=== PATIENT | female | born 1945 | race Caucasian/White ===

== ENCOUNTER 2019-04-22 14:11 | Outpatient (CLI) | payer MEDICARE, OTHER, SELFPAY ==
[2019-04-22 14:15] VITALS: BP 138/80; PULSE 74; RESP 16; TEMP 36.7; O2SAT 95
--- NOTE | 2019-04-22 14:31 | PC.NURSE ---
Education given on Prolia given along with brochure on Prolia. Discussed possible side effects and administration. Verbalized understanding.
[2019-04-22] MEDS: denosumab 60 mg SDV SUBCUT (14:39)
[2019-04-22 15:01] VITALS: BP 148/89; TEMP 36.7
== END 2019-04-22 14:12 | disposition home or self-care (01) ==
LOC: RHEOACUTE 14:14
PROVIDERS: Visit Provider Internal Medicine Rheumatology
DX: M81.0 Age-related osteoporosis without current pathological fracture (principal)
CPT/HCPCS: 96372; J0897

== ENCOUNTER → 2019-10-15 13:58 | Outpatient (BNVA) | payer MEDICARE, OTHER, SELFPAY | PROVIDERS: Visit Provider Internal Medicine | DX: Z79.899 Other long term (current) drug therapy (principal) | CPT/HCPCS: 36415; 82310; 82565 ==

== ENCOUNTER 2019-10-27 12:55 | Outpatient (CLI) | payer MEDICARE, OTHER, SELFPAY ==
[2019-10-27] MEDS: denosumab 60 mg SDV SUBCUT (13:05)
[2019-10-27 13:06] VITALS: BP 157/78; PULSE 63; RESP 16; TEMP 36.8; O2SAT 96
[2019-10-27 13:31] VITALS: BP 158/81; PULSE 59; RESP 16; TEMP 36.3; O2SAT 96
== END 2019-10-27 12:56 | disposition home or self-care (01) ==
LOC: RHEOACUTE 12:56
PROVIDERS: Visit Provider Internal Medicine Rheumatology
DX: M81.0 Age-related osteoporosis without current pathological fracture (principal)
CPT/HCPCS: 96372; J0897

== ENCOUNTER 2020-03-02 13:28 | Outpatient (CLI) | payer MEDICARE, OTHER, SELFPAY ==
--- NOTE | 2020-03-02 13:38 | MM_ITS ---
WS: [id number] BILATERAL SCREENING DIGITAL MAMMOGRAM WITH CAD HISTORY: SCREENING COMPARISON: 01/17/2018 Bilateral CC and MLO views submitted. Computer aided detection analyzed. Breast composition: There are scattered areas of fibroglandular density. No suspicious masses, microc alcifications or architectural distortion. Long-term stability of a nodule in the upper outer quadran t of the RIGHT breast which is probably a lymph node. Bilateral round calcifications and vascular blanca cifications. MM/[place] [id number] IMPRESSION: BI-RADS: 2-Benign FOLLOW UP: 1 Year Follow-up
== END 2020-03-02 13:29 | disposition home or self-care (01) ==
LOC: RADSHAW 13:37
PROVIDERS: PCP Family Medicine; Visit Provider Family Medicine
DX: Z12.31 Encounter for screening mammogram for malignant neoplasm of breast (principal)
CPT/HCPCS: 77067

== ENCOUNTER 2020-04-07 16:13 | Emergency (ER) | payer MEDICARE, OTHER, SELFPAY ==
[2020-04-07 16:17] VITALS: BP 171/85; PULSE 73; RESP 18; TEMP 36.4; O2SAT 95; BMI 25.0
--- NOTE | 2020-04-07 19:02 | W.ED.NAVMDI ---
HPI - Nausea/Vomiting/Diarrhea General: Chief complaint: Nausea/Vomiting/Diarrhea Stated complaint: upset stomach, loose stool Time Seen by Provider: 04/07/20 18:46 Source: patient Mode of arrival: ambulatory Limitations: no limitations History of Present Illness: HPI Narrative: 74-year-old female who states that since Sunday she has had nausea and vomiting along with some slight diarrhea. States she has had multiple episodes of vomiting is not able to keep anything down p.o. She states she has had abdominal cramping as well. She denies any worsening improving factors. Patient's has had the same symptoms along with her daughter. Associated nausea: Yes Associated symtoms: Reports nausea; Denies chest pain, dysuria or headache(s) Review of Systems Const: Denies: fever(s), chills, body aches or change in appetite Eyes: Denies: blurry vision or eye discomfort ENMT: Denies: throat pain or dental pain Card: Denies: chest pain Resp: Denies: dyspnea GI: Reports: abdominal pain, nausea, vomiting and diarrhea : Denies: dysuria Musc: Denies: neck pain or back pain Skin/Breast: Denies: rash Neuro: Denies: headache(s) Psych: Denies: depression Rashid/Lymph: Denies: easy bruising All/Imm: Denies: urticaria Physical Exam Const: COMMON NORMALS: no acute distress, patient oriented x3 and healthy appearing HENMT: COMMON NORMALS: normocephalic and atraumatic HEAD & SCALP: normocephalic and atraumatic Eye: COMMON NORMALS: Equal, round and reactive pupils present and EOMs intact bilaterally PUPIL: Yes Equal, round and reactive pupils present Neck/C-Spine: COMMON NORMALS: full ROM and supple Chest: COMMONS NORMALS: normal inspection of the chest and normal palpation of entire chest wall Resp: COMMON NORMALS: normal respiratory effort, No retractions, No use of accessory muscles and clear to auscultation bilaterally AUSCULTATION: clear to auscultation bilaterally Cardio: COMMON NORMALS: regular rate, regular rhythm and No murmurs present (Cardio) RATE: regular rate RHYTHM: regular rhythm GI: COMMON NORMALS: Normal to inspection, nondistended, normoactive bowel sounds present, Soft to palpation, non-tender and no masses PALPATION: Yes Soft to palpation Extremity: COMMON NORMALS: normal to inspection and full ROM Neuro: COMMON NORMALS: patient oriented x3, moves all extremities and no focal motor deficits Psych: COMMON NORMALS: mental status grossly normal, Normal thought process present and cooperative THOUGHT PROCESS: Normal thought process present Skin: COMMON NORMALS: no rashes or lesions noted and no wounds GENERAL SKIN EXAM: no rashes or lesions noted Course Vital Signs: Vital signs: Vital Signs Temperature 97.6 F 04/07/20 16:17 Pulse Rate 85 04/07/20 21:00 Respiratory Rate 16 04/07/20 21:00 Blood Pressure 175/85 04/07/20 21:00 Pulse Oximetry 97 04/07/20 21:00 MDM - Nausea/Vomiting/Diarrhea MDM Narrative: Medical decision making narrative: Gabrielle presents with vomiting is likely viral in origin. She is well-appearing here and her abdominal exam is benign. She feels much improved after IV fluids. She has had contact with people with similar symptoms. She has no signs of appendicitis. We will start her on Zofran and she is stable for discharge. She is return if worsening. Lab Data: Labs: Lab Results 04/07/20 04/07/20 04/07/20 Range/Units 19:10 19:10 19:10 WBC 4.3 (4.0-10.0) 10^3/ uL RBC 4.19 (4.1-5.3) 10^6/u L Hgb 13.6 (11.5-15.3) g/dL Hct 42.0 (37.0-47.0) % MCV 100.2 H (81-99) fL MCH 32.5 (28.0-34.0) pg MCHC 32.4 (30.0-36.0) g/dL RDW 12.3 (12.1-15.1) % Plt Count 191 (130-400) 10^3/c mm MPV 10.6 H (7.4-10.4) fL Neut % (Auto) 79.1 % Lymph % (Auto) 11.6 % [place] % (Auto) 8.6 % Eos % (Auto) 0.0 % Baso % (Auto) 0.2 % Neut # (Auto) 3.40 (1.8-7.7) 10^3/u L Lymph # (Auto) 0.5 L (0.8-4.8) 10^3/u L [place] # (Auto) 0.4 (0.2-0.9) 10^3/u L Eos # (Auto) 0.0 (0.0-0.8) 10^3/u L Baso # (Auto) 0.0 (0.0-0.1) 10^3/u L Nucleated RBC % (a uto) 0 % Nucleated RBCs # 0.0 /100WBC Sodium Cancelled Potassium Cancelled Chloride Cancelled Carbon Dioxide Cancelled Anion Gap Cancelled BUN Cancelled Creatinine Cancelled GFR Calculation Cancelled Glucose Cancelled Calculated Osmolal ity Cancelled Lactic Acid Cancelled Calcium Cancelled Total Bilirubin Cancelled AST Cancelled ALT Cancelled Alkaline Phosphata se Cancelled Total Protein Cancelled Albumin Cancelled Globulin Cancelled Lipase Cancelled Urine Color (Yellow) Urine Appearance (CLEAR) Urine pH (5-7) Ur Specific Gravit y (1.005-1.030) Urine Protein (Negative) Urine Glucose (UA) (Normal) Urine Ketones (Negative) Urine Blood (Negative) Urine Nitrate (Negative) Urine Bilirubin (Negative) Urine Urobilinogen (Negative) mg/dL Ur Leukocyte Tammy ase (Negative) Urine RBC (0-2) /hpf Urine WBC (0-5) /hpf Ur Squamous Epith Cells (0-5) /hpf Amorphous Sediment Urine Bacteria (NONE) /hpf Urine Mucus /hpf 04/07/20 04/07/20 04/07/20 Range/Units 19:58 19:58 20:44 WBC (4.0-10.0) 10^3/ uL RBC (4.1-5.3) 10^6/u L Hgb (11.5-15.3) g/dL Hct (37.0-47.0) % MCV (81-99) fL MCH (28.0-34.0) pg MCHC (30.0-36.0) g/dL RDW (12.1-15.1) % Plt Count (130-400) 10^3/c mm MPV (7.4-10.4) fL Neut % (Auto) % Lymph % (Auto) % [place] % (Auto) % Eos % (Auto) % Baso % (Auto) % Neut # (Auto) (1.8-7.7) 10^3/u L Lymph # (Auto) (0.8-4.8) 10^3/u L [place] # (Auto) (0.2-0.9) 10^3/u L Eos # (Auto) (0.0-0.8) 10^3/u L Baso # (Auto) (0.0-0.1) 10^3/u L Nucleated RBC % (a uto) % Nucleated RBCs # /100WBC Sodium 138 Potassium 3.8 Chloride 103 Carbon Dioxide 26 Anion Gap 12.8 BUN 13 Creatinine 0.7 GFR Calculation Not Reportable Glucose 105 Calculated Osmolal ity 286 Lactic Acid 1.3 Calcium 8.1 L Total Bilirubin 0.3 AST 22 ALT 13 Alkaline Phosphata se 54 Total Protein 6.7 Albumin 4.0 Globulin 2.7 Lipase 17 Urine Color Yellow (Yellow) Urine Appearance Clear (CLEAR) Urine pH 7 (5-7) Ur Specific Gravit y 1.010 (1.005-1.030) Urine Protein Trace (Negative) Urine Glucose (UA) Norm (Normal) Urine Ketones 1+ H (Negative) Urine Blood 3+ H (Negative) Urine Nitrate Negative (Negative) Urine Bilirubin Neg (Negative) Urine Urobilinogen 1 H (Negative) mg/dL Ur Leukocyte Tammy ase Negative (Negative) Urine RBC 15-25 H (0-2) /hpf Urine WBC None (0-5) /hpf Ur Squamous Epith Cells 0-4 H (0-5) /hpf Amorphous Sediment Not Reportable Urine Bacteria 2+ H (NONE) /hpf Urine Mucus Trace /hpf Discharge Plan Discharge Patient Disposition: Home Clinical Impression: Vomiting Qualifiers: Vomiting type: unspecified Vomiting Intractability: non-intractable Nausea presence: with nausea Qualified Code(s): R11.2 - Nausea with vomiting, unspecified Condition: Stable Prescriptions: New ondansetron 4 mg tablet,disintegrating 4 mg PO Q6H PRN (Reason: nausea and vomiting) Qty: 14 RF: 0 No Action aspirin 325 mg Tablet 325 - 650 mg PO Q4H PRN (Reason: Headache) RF: 0 gabapentin 400 mg capsule 400 mg PO Q6H RF: 0 midodrine 5 mg Tablet 5 mg PO TID PRN (Reason: LOW BLOOD PRESSURE) RF: 0 hydrocodone-acetaminophen 10-325 mg tablet 1 tab PO Q6H PRN (Reason: Pain) RF: 0 levothyroxine 125 mcg tablet 125 mcg PO DAILY@0800 RF: 0 rosuvastatin 10 mg tablet 10 mg PO DAILY@0900 RF: 0 duloxetine 60 mg capsule,delayed release(DR/EC) 60 mg PO DAILY@0900 RF: 0 Prolia 60 mg/mL Syringe See Rx Instructions .ROUTE .COMPLEX RF: 0 calcium 1 tab PO DAILY@0900 RF: 0 Discharge Orders: Discharge ED (Routine); Ordered 04/07/20 Ordered By: Rosa Davenport Referrals: Andrea Gaona MD [Primary Care Provider] - 1-3 days Discharge Diet: Advance as tolerated Discharge Activity: Resume usual activity Patient Instructions: Acute Nausea and Vomiting (ED) Coding Level of Care Code ED [employer] for Joel Fwd Exam Comprehensive
[2020-04-07] MEDS: sodium chloride 0.9% 1,000 ML 999 ML IV (19:21)
[2020-04-07] MEDS: ondansetron 2 mg/ML SDV 2 mL 4 MG IVP (19:21)
[2020-04-07 19:22] VITALS: BP 177/87; PULSE 69; RESP 17; O2SAT 98
[2020-04-07 19:25] LABS: Basophils % 0.2 %; Hemoglobin 13.6 g/dL (11.5-15.3); Lymphocytes # 0.5 10^3/uL (0.8-4.8); Lymphocytes % 11.6 %; Mean Corpuscular HGB Conc 32.4 g/dL (30.0-36.0); Mean Corpuscular Hemoglobin 32.5 pg (28.0-34.0); Mean Corpuscular Volume 100.2 fL (81-99); Mean Platelet Volume 10.6 fL (7.4-10.4); Monocytes # 0.4 10^3/uL (0.2-0.9); Monocytes % 8.6 %; Neutrophils % 79.1 %; Nucleated Red Blood Cells % 0 %; Platelet Count 191 10^3/cmm (130-400); Red Blood Count 4.19 10^6/uL (4.1-5.3); Red Cell Distribution Width 12.3 % (12.1-15.1); White Blood Count 4.3 10^3/uL (4.0-10.0)
[2020-04-07 20:25] LABS: Alanine Aminotransferase 13 U/L (0-33); Alkaline Phosphatase 54 IU/L (35-105); Anion Gap 12.8 (5-19); Aspartate Amino Transferase 22 U/L (0-32); Blood Urea Nitrogen 13 mg/dL (8-23); Calcium 8.1 mg/dL (8.5-10.5); Carbon Dioxide 26 mmol/L (22-29); Chloride 103 mmol/L (98-107); Globulin 2.7 g/dL (1.3-4.6); Glucose 105 mg/dL (65-115); Lipase 17 U/L (13-60); Osmolality Calculated 286 mOsm/kg (285-295); Potassium 3.8 mmol/L (3.5-5.1); Sodium 138 mmol/L (136-145); Total Bilirubin 0.3 mg/dL (0.15-1.2); Total Protein 6.7 g/dL (6.6-8.7)
[2020-04-07 20:26] LABS: Lactic Sepsis W/Reflex 1.3 mmol/L (0.5-2.2)
[2020-04-07 20:30] VITALS: BP 168/74; PULSE 85; RESP 16; O2SAT 97
[2020-04-07 21:00] VITALS: BP 175/85; PULSE 85; RESP 16; O2SAT 97
[2020-04-07 21:08] LABS: Add Urine Microscopic? YES; Bilirubin Urine Neg (Negative); Blood Urine 3+ (Negative); Glucose Urine UA Norm (Normal); Ketones Urine 1+ (Negative); Leukocyte Esterase Urine Negative (Negative); Nitrate Urine Negative (Negative); Protein Urine Trace (Negative); Urine Appearance Clear (CLEAR); Urine Color Yellow (Yellow); Urobilinogen Urine 1 mg/dL (Negative); pH Urine 7 (5-7)
[2020-04-07 21:16] LABS: RBC Urine 15-25 /hpf (0-2); Squamous Epithelial Cell Urine 0-4 /hpf (0-5)
[2020-04-07 21:17] LABS: Add Urine Culture? Yes; Bacteria Urine 2+ /hpf; Mucus Urine TRACE /hpf
[2020-04-07 21:25] VITALS: BP 175/85; PULSE 87; RESP 17; TEMP 36.4; O2SAT 97
== END 2020-04-07 21:25 | disposition home or self-care (01) ==
PROVIDERS: Physician Assistant; Emergency Provider Emergency Medicine; PCP Family Medicine
DX: R11.2 Nausea with vomiting, unspecified (principal); Z79.82 Long term (current) use of aspirin; Z79.899 Other long term (current) drug therapy
CPT/HCPCS: 80053; 81001; 83605; 83690; 85025; 87086; 87493; 87506; 96361; 96374; 99283; J2405; J7030

== ENCOUNTER 2020-04-16 13:58 | Outpatient (CLI) | payer MEDICARE, OTHER, SELFPAY ==
--- NOTE | 2020-04-16 | XR_ITS ---
WS: [id number] SCREENING DEXA SCAN [employer] CLINICAL INFORMATION: OSTEOPOROSIS COMPARISON: None. FINDINGS: The L1-L4 bone mineral density measures 1.247 g/cm2. This corresponds to a T score score of 0.6 and Z score of 1.9. Left femoral neck bone mineral density measures 0.767 g/cm2. This corresponds to a T score of -1.9 an d Z score of -0.4. Right femoral neck bone mineral density measures 0.768 g/cm2. This corresponds to a T score -1.9of an d Z score of -0.4. Mean femoral neck bone mineral density measures 0.767 g/cm2. This corresponds to a T score of -1.9 an d Z score of -0.4. XR/XR DEXA axial skeleton* [id number] IMPRESSION: Osteopenia in the femoral necks. Normal bone mineralization lumbar spine. Patient's FRAX calculated 10 year probability for major osteoporotic fracture i s 18.8 % and osteoporotic hip fracture is 4.0%.
== END 2020-04-16 13:59 | disposition home or self-care (01) ==
LOC: RADWPI 14:04
PROVIDERS: PCP Family Medicine; Visit Provider Nurse Practitioner
DX: M81.0 Age-related osteoporosis without current pathological fracture (principal); M85.862 Other specified disorders of bone density and structure, left lower leg; M85.861 Other specified disorders of bone density and structure, right lower leg
CPT/HCPCS: 77080

== ENCOUNTER 2020-04-29 14:37 | Outpatient (CLI) | payer MEDICARE, OTHER, SELFPAY ==
[2020-04-29] MEDS: denosumab 60 mg SDV SUBCUT (15:10)
== END 2020-04-29 14:38 | disposition home or self-care (01) ==
PROVIDERS: PCP Family Medicine; Visit Provider Internal Medicine Medical Oncology
DX: M81.0 Age-related osteoporosis without current pathological fracture (principal)
CPT/HCPCS: 96372; J0897

== ENCOUNTER 2020-06-15 11:05 | Outpatient (CLI) | payer MEDICARE, OTHER, SELFPAY ==
--- NOTE | 2020-06-15 11:13 | XRR_ITS ---
PROCEDURE INFORMATION: Exam: XR Left Foot Exam date and time: 06/15/2020 11:20 AM Age: 75 years old Clinical indication: Pain; Swelling, leg or foot; Left; Patient HX: Previous FX lt ankle 2014 or 2015; Additional info: Left foot pain, swelling lt lateral malleolus and heel x 1 week TECHNIQUE: Imaging protocol: XR Left foot. Views: 3 or more views. COMPARISON: No relevant prior studies available. FINDINGS: Bones/joints: No fracture. No dislocation. Soft tissues: Hindfoot soft tissue swelling, more so laterally. XR/XR foot LT min 3V* [id number] IMPRESSION: Nonspecific soft tissue swelling.
== END 2020-06-15 11:06 | disposition home or self-care (01) ==
LOC: RAD 11:10
PROVIDERS: PCP Family Medicine; Visit Provider Family Medicine
DX: M79.672 Pain in left foot (principal); M79.89 Other specified soft tissue disorders
CPT/HCPCS: 73630

== ENCOUNTER 2020-06-16 15:10 | Outpatient (CLI) | payer MEDICARE, OTHER, SELFPAY ==
--- NOTE | 2020-06-16 15:19 | USCV_ITS ---
Gabrielle Li Age: 75 Gender: F : 1945 Exam Date: 06/16/2020 15:48 Ordering Phys: Andrea Gaona MD Technologist: Exam Location: [facility] [place] Indication: LT LEG PAIN AND EDEMA HISTORY: Lower extremity edema. Lower extremity swelling. LT PROCEDURES: Venous duplex imaging was performed in only the left lower extremity. The following venous structures were evaluated: common femoral vein, profunda vein, proximal portion of the greater saphenous vein, superficial femoral vein, and the popliteal vein. In addition, the posterior tibial and peroneal trunk were evaluated. On the left side, the common femoral, superficial femoral, profunda femoral, popliteal, posterior tibial, greater saphenous veins, and the peroneal trunk were identified and interrogated in the standard fashion. These veins were found to be easily compressible with spontaneous blood flow. No evidence of insufficiency or thrombus noted. FINDINGS: Normal 2-D Doppler and augmentation and compressibility throughout the lower extremity venous structures. Additional imaging through the proximal calf veins also reveals no thrombus. Limited evaluation of the greater saphenous vein is patent with no thrombus.. CONCLUSIONS No evidence of left lower extremity DVT. Mohsen Zavala MD (Electronically Signed) Final Date: 16 Jun 2020 17:01 S
== END 2020-06-16 15:11 | disposition home or self-care (01) ==
LOC: RAD 15:16
PROVIDERS: PCP Family Medicine; Visit Provider Family Medicine
DX: M79.89 Other specified soft tissue disorders (principal); M79.605 Pain in left leg
CPT/HCPCS: 93971

== ENCOUNTER 2020-10-25 14:29 | Outpatient (CLI) | payer MEDICARE, OTHER, SELFPAY ==
[2020-10-25 16:02] LABS: Albumin Level 4.3 g/dL (3.5-5.2); Calcium 9.3 mg/dL (8.5-10.5)
== END 2020-10-25 14:30 | disposition home or self-care (01) ==
PROVIDERS: PCP Family Medicine; Referring Provider Nurse Practitioner; Visit Provider Nurse Practitioner
DX: M81.0 Age-related osteoporosis without current pathological fracture (principal)
CPT/HCPCS: 36415; 82040; 82310

== ENCOUNTER 2020-11-04 14:58 | Outpatient (CLI) | payer MEDICARE, OTHER, SELFPAY ==
[2020-11-04 15:14] VITALS: BP 165/72; PULSE 61; RESP 18; TEMP 36.2; O2SAT 95
[2020-11-04] MEDS: denosumab 60 mg SDV SUBCUT (15:26)
[2020-11-04 15:42] VITALS: BP 162/76; PULSE 62; RESP 18; TEMP 36.4; O2SAT 94
== END 2020-11-04 14:59 | disposition home or self-care (01) ==
LOC: ONCMED 15:03
PROVIDERS: PCP Family Medicine; Referring Provider Nurse Practitioner; Visit Provider Nurse Practitioner
DX: M81.0 Age-related osteoporosis without current pathological fracture (principal)
CPT/HCPCS: 96372; J0897

== ENCOUNTER 2021-02-23 13:21 | Outpatient (CLI) | payer MEDICARE, OTHER, SELFPAY ==
--- NOTE | 2021-02-23 | CT_ITS ---
WS: [id number] CT ABDOMEN AND PELVIS WITH CONTRAST HISTORY: ABDOMINAL PAIN, constipation. TECHNIQUE: Imaging performed of the abdomen and pelvis with IV contrast. Single phase imaging of the abdomen. Coronal and sagittal reformats are submitted. All CT scans at [facility] use at [address] one of these dose optimization techniques: automated exposure control; mA and/or kV adjustment per patient size (includes targeted exams where dose is matched to clinical indication); or iterative re construction. IV CONTRAST: Visipaque 320; 95 mL IV. Oral contrast: Yes. DLP: 1017.03 mGycm COMPARISON: None available. Lower thorax: Lung bases are clear. Moderately enlarged heart. No pericardial effusion. Small hiatal hernia. Liver/biliary system: Normal size with no intrahepatic dilatation. Gallbladder: Normal. No gallstones or wall thickening. No pericholecystic fluid. Pancreas: Normal size pancreas and pancreatic duct. No adjacent inflammation. Spleen: Normal size spleen. No mass or infarct. Adrenal glands: Normal. Right kidney: Normal. Left kidney: Normal. Aorta: Moderate atherosclerotic plaque throughout the aorta. No aneurysm. There is plaque at the orig ins of the celiac axis and SMA. Lymphadenopathy: None. Free fluid: None. GI tract: No GI tract obstruction. There is mild diffuse fecal retention and constipation. No change in caliber or focal area of obstruction. The appendix is not definitely identified but there are no c hanges of appendicitis. No small bowel dilatation. Abdominal wall: Unremarkable abdominal wall. No hernia. Pelvis: Well-distended urinary bladder. Uterus is atrophic. No adnexal masses. Bones: Degenerative thoracolumbar scoliosis. No fractures. Remote healed fracture involving the RIGHT inferior pubic rami. CT/CT abdomen pelvis w con* [id number] IMPRESSION: 1. Mild diffuse constipation. No focal transition zone identified. 2. No ascites or adenopathy. 3. Moderate atherosclerosis aorta with atherosclerotic plaque causing mild to moderate stenosis involving the celiac axis and SMA origins.
[2021-02-23] MEDS: iodixanol 320 mg/mL 100mL Btl IV (14:47)
[2021-02-23] MEDS: iohexol 300 mg/mL 50 mL Btl PO (14:47)
== END 2021-02-23 13:22 | disposition home or self-care (01) ==
PROVIDERS: PCP Family Medicine; Visit Provider Family Medicine
DX: R10.9 Unspecified abdominal pain (principal); K59.00 Constipation, unspecified; I70.0 Atherosclerosis of aorta
CPT/HCPCS: 74177; Q9967

== ENCOUNTER 2021-05-19 12:02 | Outpatient (CLI) | payer MEDICARE, OTHER, SELFPAY ==
[2021-05-19 13:08] LABS: Albumin Level 4.1 g/dL (3.5-5.2); Calcium 9.7 mg/dL (8.5-10.5)
[2021-05-19 13:31] VITALS: BP 176/81; PULSE 61; RESP 18; TEMP 36.3; O2SAT 95
[2021-05-19] MEDS: denosumab 60 mg SDV SUBCUT (13:44)
[2021-05-19 13:50] VITALS: BP 165/84; PULSE 60; RESP 18; TEMP 36.4; O2SAT 97
== END 2021-05-19 12:03 | disposition home or self-care (01) ==
LOC: ONCMED 12:08
PROVIDERS: PCP Family Medicine; Visit Provider Nurse Practitioner
DX: M81.0 Age-related osteoporosis without current pathological fracture (principal)
CPT/HCPCS: 36415; 82040; 82310; 96372; J0897

== ENCOUNTER 2021-05-26 13:24 | Outpatient (CLI) | payer MEDICARE, OTHER, SELFPAY ==
--- NOTE | 2021-05-26 13:38 | MM_ITS ---
WS: [id number] BILATERAL 3D TOMOSYNTHESIS DIGITAL SCREENING MAMMOGRAPHY WITH CAD CLINICAL INFORMATION: SCREENING HISTORY: Screening mammogram. No current complaints. COMPARISON: March 02, 2020 TECHNIQUE: Bilateral CC and MLO views. FINDINGS: Scattered fibroglandular densities bilaterally. Punctate and lucent centered calcifications. Vascular calcification. Stable intramammary lymph node along the RIGHT axillary tail. No suspicious focal mas s, asymmetry, calcifications, or architectural distortion. No evidence of malignancy. MM/[place] [id number] IMPRESSION: BI-RADS: 2-Benign FOLLOW UP: 1 Year Follow-up Recommend return to annual screening mammography.
== END 2021-05-26 13:25 | disposition home or self-care (01) ==
LOC: RADSHAW 13:28
PROVIDERS: PCP Family Medicine; Visit Provider Family Medicine
DX: Z12.31 Encounter for screening mammogram for malignant neoplasm of breast (principal)
CPT/HCPCS: 77063; 77067

== ENCOUNTER 2021-09-20 13:30 | Outpatient (CLI) | payer MEDICARE, OTHER, SELFPAY | END 2021-09-20 13:31 | disposition home or self-care (01) | LOC: LAB 13:33 | PROVIDERS: PCP Family Medicine; Visit Provider Dietitian, Registered | DX: R10.11 Right upper quadrant pain (principal); R11.0 Nausea | CPT/HCPCS: 87338 ==

== ENCOUNTER → 2021-10-03 17:30 | Outpatient (BNVA) | payer MEDICARE, OTHER, SELFPAY | PROVIDERS: PCP Family Medicine; Visit Provider Family Medicine | DX: J06.9 Acute upper respiratory infection, unspecified (principal); J18.9 Pneumonia, unspecified organism | CPT/HCPCS: 87426 ==

== ENCOUNTER 2021-10-04 11:10 | Outpatient (CLI) | payer MEDICARE, OTHER, SELFPAY ==
--- NOTE | 2021-10-04 11:20 | XRR_ITS ---
PROCEDURE INFORMATION: Exam: XR Chest Exam date and time: 10/04/2021 11:20 AM Age: 76 years old Clinical indication: Bronchospasm and shortness of breath; Patient HX: SOB chest pain coughing x 3 weeks; Additional info: Pneumonia TECHNIQUE: Imaging protocol: Radiologic exam of the chest. Views: 2 views. Total images: 2 COMPARISON: CT abdomen pelvis w con* [id number] 02/23/2021 2:34 PM FINDINGS: Lungs: Pulmonary hyperinflation, suggesting COPD. Pleural spaces: Unremarkable. No pleural effusion. No pneumothorax. Heart/Mediastinum: Unremarkable. No cardiomegaly. Vasculature: Atherosclerosis is evident. Bones/joints: Osseous structures are unchanged from the prior exam. XR/XR chest 2V* [id number] IMPRESSION: Pulmonary hyperinflation, suggesting COPD.
== END 2021-10-04 11:11 | disposition home or self-care (01) ==
LOC: RAD 11:12
PROVIDERS: PCP Family Medicine; Visit Provider Family Medicine
DX: J18.9 Pneumonia, unspecified organism (principal); R06.02 Shortness of breath; R07.9 Chest pain, unspecified
CPT/HCPCS: 71046

== ENCOUNTER 2021-10-12 09:42 | Outpatient (CLI) | payer MEDICARE, OTHER, SELFPAY ==
--- NOTE | 2021-10-12 10:11 | NM_ITS ---
WS: [id number] NUCLEAR MEDICINE HIDA SCAN CLINICAL INFORMATION: RIGHT UPPER QUADRANT PAIN, NAUSEA TECHNIQUE: Following intravenous administration of 7.6 mCi of technetium 99m mebrofenin, images of th e abdomen were obtained over the course of 60 minutes. Next, gallbladder ejection fraction was determ ined by obtaining preprandial and one-hour postprandial images of the gallbladder following oral antonieta stion of Ensure. COMPARISON: None. FINDINGS: Normal hepatic uptake at 5 minutes. Normal hepatic excretion. Gallbladder is visualized by 20 minutes . No evidence of acute cholecystitis. Normal common bile duct and small bowel activity. Gallbladder ejection fraction 82% within normal limits. No evidence of chronic cholecystitis. NM/NM hepatobiliary w phar* [id number] IMPRESSION: 1. No evidence of acute or chronic cholecystitis. 2. Gallbladder ejection fraction 82% within normal limits.
== END 2021-10-12 09:43 | disposition home or self-care (01) ==
LOC: RAD 09:44
PROVIDERS: PCP Family Medicine; Visit Provider Dietitian, Registered
DX: R10.11 Right upper quadrant pain (principal); R11.0 Nausea
CPT/HCPCS: 78227; A9537

== ENCOUNTER 2021-11-18 13:10 | Outpatient (CLI) | payer MEDICARE, OTHER, SELFPAY ==
--- NOTE | 2021-11-18 13:29 | XR_ITS ---
WS: [id number] XR abdomen 1V* [id number] REASON FOR EXAM: NAUSEA, ABDOMINAL PAIN FINDINGS: Unremarkable bowel gas pattern. No free air or retroperitoneal air. No urinary tract calculi or other significant abdominal or pelvic calcifications. No mass is identified. Moderately severe lumbar spine rotatory scoliosis convex right. XR/XR abdomen 1V* [id number] IMPRESSION: No acute abnormality.
== END 2021-11-18 13:11 | disposition home or self-care (01) ==
LOC: RAD 13:14
PROVIDERS: PCP Family Medicine; Visit Provider Dietitian, Registered
DX: R11.0 Nausea (principal); R10.9 Unspecified abdominal pain
CPT/HCPCS: 74018

== ENCOUNTER 2021-11-22 09:43 | Outpatient (CLI) | payer MEDICARE, OTHER, SELFPAY ==
[2021-11-22 10:41] LABS: Calcium 9.9 mg/dL (8.5-10.5)
[2021-11-22 10:48] VITALS: BP 162/85; PULSE 67; RESP 18; TEMP 36.2; O2SAT 95
[2021-11-22] MEDS: denosumab 60 mg SDV SUBCUT (10:51)
[2021-11-22 10:57] VITALS: BP 155/85; PULSE 69; RESP 18; TEMP 36.3; O2SAT 94
== END 2021-11-22 09:44 | disposition home or self-care (01) ==
PROVIDERS: PCP Family Medicine; Visit Provider Nurse Practitioner
DX: M81.0 Age-related osteoporosis without current pathological fracture (principal)
CPT/HCPCS: 36415; 82040; 82310; 96372; J0897

== ENCOUNTER → 2021-12-13 14:50 | Outpatient (BNVA) | payer MEDICARE, OTHER, SELFPAY | PROVIDERS: PCP Family Medicine; Visit Provider Clinical Nurse Specialist Adult Health | DX: R10.9 Unspecified abdominal pain (principal) | CPT/HCPCS: 80053; 82150; 83690; 85025 ==

== ENCOUNTER → 2021-12-15 10:14 | Outpatient (BNVA) | payer MEDICARE, OTHER, SELFPAY | PROVIDERS: PCP Family Medicine; Visit Provider Family Medicine | DX: D75.89 Other specified diseases of blood and blood-forming organs (principal); R10.9 Unspecified abdominal pain | CPT/HCPCS: 82607; 82746 ==

== ENCOUNTER 2021-12-28 12:55 | Outpatient (CLI) | payer MEDICARE, OTHER, SELFPAY ==
--- NOTE | 2021-12-28 13:06 | XR_ITS ---
WS: [id number] Exam: XR scoliosis survey 4-5V [id number] Date/Time of Exam: 12/28/2021 1:09 PM Reason For Exam: Low back pain AP and lateral views of the thoracic and lumbar spine are submitted for scoliosis evaluation. There is dextroscoliosis of the lumbar spine measuring 10 degrees. There is also levoscoliosis of the mid and lower thoracic spine and upper lumbar spine measuring 25 degrees. There are no fractures or significant bony anomalies noted. The thoracic kyphosis is well-maintained. There is straightening of the lumbar lordosis. There are moderate degenerative disc changes of the lumbar spine and spondylosi s. Facet arthropathy of the lumbar spine. XR/XR scoliosis survey 4-5V [id number] IMPRESSION: 1. Dextroscoliosis of the lumbar spine measuring 10 degrees. 2. Levoscoliosis of the mid and lower thoracic spine and upper lumbar spine anahy suring 25 degrees. 3. Moderately advanced degenerative changes of the lumbar spine as detailed abo ve. Straightening of the lumbar lordosis.
--- NOTE | 2021-12-28 15:00 | CT_ITS ---
WS: [id number] CT ABDOMEN AND PELVIS NONCONTRAST HISTORY: abdominal pain RUQ and LUQ TECHNIQUE: Imaging performed through the abdomen and pelvis. Coronal and sagittal reformats are submi tted. All CT scans at [facility] use at least one of these dose optimization techniques: auto mated exposure control; mA and/or kV adjustment per patient size (includes targeted exams where dose is matched to clinical indication); or iterative reconstruction. DLP: 982.41 mGy.cm COMPARISON: 02/23/2021 Lower thorax: Spiculated 7 mm nodule at the LEFT lung base. New since the prior examinations. Chronic emphysema. Heart size is normal. Small hiatal hernia. Liver: Normal size liver. No mass or bile duct dilatation. Gallbladder: Normal gallbladder. Pancreas: Normal size and attenuation. Normal pancreatic duct. No pancreatitis or mass. Spleen: Normal. Adrenal glands: Normal. No mass. Right kidney: Normal size kidney with no mass or hydronephrosis. Left kidney: Normal size kidney with no mass or hydronephrosis. Aorta: Moderate to severe atherosclerosis abdominal aorta. No aneurysm. Atherosclerosis continues int o the common iliac arteries. Atherosclerotic plaque continues into the mesenteric arteries. No free fluid, intraperitoneal air or significant lymphadenopathy. GI tract: Stomach is not distended. No small bowel obstruction. Tortuous overlapping loops of colon w ith constipation. Cecum is very low lying adjacent to the bladder. The appendix is not definitely davin ntified. No acute inflammatory changes. Abdominal wall: Negative. No hernia. Pelvis: Atrophic uterus. No free fluid or adenopathy. Osseous structures: Degenerative scoliosis lumbar spine. CT/CT abdomen pelvis wo con [id number] IMPRESSION: 1. Marked constipation with overlapping loops of GI tract. Probably due to elvis g-standing constipation. 2. Moderate atherosclerosis aorta and mesenteric arteries. 3. No free fluid or ascites. 4. If patient's pain and discomfort continues additional evaluation with IV an d oral contrast may be helpful. 5. New spiculated 7 mm nodule at the LEFT lung base. Recommend follow-up chest CT in 3 months.
== END 2021-12-28 12:56 | disposition home or self-care (01) ==
LOC: RAD 12:55
PROVIDERS: PCP Family Medicine; Visit Provider Clinical Nurse Specialist Adult Health
DX: R10.11 Right upper quadrant pain (principal); R10.12 Left upper quadrant pain; M54.16 Radiculopathy, lumbar region; K59.00 Constipation, unspecified; I70.0 Atherosclerosis of aorta; R91.1 Solitary pulmonary nodule; M41.86 Other forms of scoliosis, lumbar region; M41.84 Other forms of scoliosis, thoracic region
CPT/HCPCS: 72083; 74176

== ENCOUNTER 2022-03-30 14:26 | Outpatient (CLI) | payer MEDICARE, OTHER, SELFPAY ==
--- NOTE | 2022-03-30 14:44 | CT_ITS ---
WS: [id number] CT CHEST TECHNIQUE: Noncontrast CT of the chest with coronal and sagittal reformatted images. CLINICAL INFORMATION: lung nodule COMPARISON: CT abdomen pelvis December 28, 2021 DLP: 273.[address] scans at [facility] use at least one of these dose optimization techniques: automated e xposure control; mA and/or kV adjustment per patient size (includes targeted exams where dose is matc hed to clinical indication); or iterative reconstruction. FINDINGS: Again seen is the 7 mm spiculated nodule LEFT lower lobe anteriorly. This is unchanged sinc e December 28, 2021. Recommend [address] follow-up. 5 mm noncalcified nodule RIGHT middle lobe. A few additional tiny scattered subcentimeter pulmonary n odules. Slight subsegmental atelectasis in the lingula. Normal caliber thoracic aorta. Aortic calcification. No mediastinal or hilar lymphadenopathy. Adrenal glands are normal. Tiny esophageal hiatal hernia. Splenic artery calcification. Thoracic curve conve x LEFT. CT/CT chest [facility] [id number] IMPRESSION: 1. Stable 7 mm slightly spiculated nodule LEFT lower lobe anteriorly. Recommen d [address] follow-up. 2. 5 mm small nodule RIGHT middle lobe. A few additional tiny scattered nodule s. 3. No mediastinal or hilar lymphadenopathy. 4. No other acute findings.
== END 2022-03-30 14:27 | disposition home or self-care (01) ==
LOC: RAD 14:29
PROVIDERS: PCP Family Medicine; Visit Provider Family Medicine
DX: R91.1 Solitary pulmonary nodule (principal)
CPT/HCPCS: 71250

== ENCOUNTER 2022-04-28 12:37 | Outpatient (CLI) | payer MEDICARE, OTHER, SELFPAY ==
[2022-05-05 23:55] LABS: Calcitonin <2 pg/mL (< OR = 5)
[2022-05-08 16:45] LABS: 24 Hour Urine Volume 2200 mL; 5-HIAA, 24 Hour Urine 2.1 mg/24 h (< OR = 6.0)
== END 2022-04-28 12:38 | disposition home or self-care (01) ==
LOC: LAB 12:55
PROVIDERS: PCP Family Medicine; Visit Provider Dietitian, Registered
DX: E16.4 Increased secretion of gastrin (principal); K29.40 Chronic atrophic gastritis without bleeding
CPT/HCPCS: 36415; 82308; 83497

== ENCOUNTER 2022-05-24 09:43 | Oncology outpatient (recurring) (ONCR) | payer MEDICARE, OTHER, SELFPAY ==
[2022-05-24] MEDS: denosumab 60 mg SDV SUBCUT (10:54)
[2022-05-24 10:56] VITALS: BP 171/84; PULSE 58; RESP 16; TEMP 36.9; O2SAT 95
[2022-05-24 11:13] LABS: Albumin Level 4.1 g/dL (3.5-5.2); Calcium 9.8 mg/dL (8.5-10.5)
--- NOTE | 2022-05-24 16:29 | PC.NURSE ---
Called patient to let her know what her lab results were. This nurse let her know that her Calcium was 9.8 and Alb was 4.1. Patient acknowledged understanding and had no other questions or concerns.
== END 2022-06-11 23:59 | disposition home or self-care (01) ==
LOC: ONCMED 09:45
PROVIDERS: PCP Family Medicine; Visit Provider Nurse Practitioner
DX: M81.0 Age-related osteoporosis without current pathological fracture (principal)
CPT/HCPCS: 36415; 82040; 82310; 96372; J0897

== ENCOUNTER 2022-06-02 14:47 | Outpatient (CLI) | payer MEDICARE, OTHER, SELFPAY ==
--- NOTE | 2022-06-02 15:12 | XR_ITS ---
WS: [id number] DEXA (DUAL ENERGY X-RAY ABSORPTIOMETRY) Bone mineral density was performed using a Think2 machine. HISTORY: AGE RELATED OSTEOPOROSIS COMPARISON: 04/16/2020 Lumbar spine BMD (L2-L4): 1.375 T score: 1.5 Z score: 2.9 Total hip BMD: Left: 0.787 g/cm2. T score: -1.7 Z score: -0.1 Right: 0.794 g/cm2. T score: -1.7 Z score: -0.1 10 year probability of a major osteoporotic fracture is 20.2%. Compared to the prior study from 04/16/2020. Lumbar spine bone mineral density has increased by 7.3%. Bilateral hips bone mineral density has increased by 2.1%. XR/XR DEXA axial skeleton* [id number] IMPRESSION: OSTEOPENIA based upon the WHO classification for females. Significant increase in bone mineral density within the lumbar spine and hips since the prior study.
--- NOTE | 2022-06-02 15:17 | MM_ITS ---
WS: [id number] BILATERAL 3D TOMOSYNTHESIS DIGITAL SCREENING MAMMOGRAPHY WITH CAD CLINICAL INFORMATION: SCREEN HISTORY: Screening mammogram. No current complaints. COMPARISON: May 26, 2021 TECHNIQUE: Bilateral CC and MLO views. FINDINGS: Scattered fibroglandular densities bilaterally. No suspicious focal mass, asymmetry, calcifications, or architectural distortion. No evidence of malignancy. Vascular calcification. Punctate and lucent c entered calcifications. MM/[place] [id number] IMPRESSION: BI-RADS: 2-Benign FOLLOW UP: 1 Year Follow-up Recommend return to annual screening mammography.
== END 2022-06-02 14:48 | disposition home or self-care (01) ==
LOC: RAD 14:53
PROVIDERS: PCP Family Medicine; Visit Provider Nurse Practitioner
DX: Z12.31 Encounter for screening mammogram for malignant neoplasm of breast (principal); M81.0 Age-related osteoporosis without current pathological fracture
CPT/HCPCS: 77063; 77067; 77080

== ENCOUNTER 2022-06-09 12:49 | Outpatient (CLI) | payer MEDICARE, OTHER, SELFPAY ==
--- NOTE | 2022-06-09 13:00 | CT_ITS ---
WS: [id number] CT HEAD NONCONTRAST HISTORY: TIA TECHNIQUE: Contiguous axial imaging performed through the brain in 2.5 mm imaging. Bone and soft tiss ue windows. Sagittal and coronal reformats reviewed. All CT scans at [facility] use at least one of these dose optimization techniques: automated exposure control; mA and/or kV adjustment per pa tient size (includes targeted exams where dose is matched to clinical indication); or iterative recon struction. DLP: 1038.58 mGy.cm COMPARISON: None available. No acute intracranial hemorrhage, midline shift or mass effect. Mild atrophy with vessel ischemic changes. Small lacunar infarcts in the anterior limbs of the international nurse al capsules. Small lacunar infarcts in the basal ganglia. Ventricles: Normal size with no hydrocephalus. No inferior displacement of the cerebellar tonsils. Paranasal sinuses: As visualized are clear. Mastoid air cells: Well pneumatized. Calvarium and scalp: Skull is intact with no soft tissue edema or swelling. CT/CT head wo con* [id number] IMPRESSION: 1. No acute intracranial hemorrhage or edema. 2. Mild cerebral and cerebellar atrophy with multiple small lacunar infarcts. No acute infarct identified.
== END 2022-06-09 12:50 | disposition home or self-care (01) ==
LOC: RAD 12:54
PROVIDERS: PCP Family Medicine; Visit Provider Family Medicine
DX: G45.9 Transient cerebral ischemic attack, unspecified (principal); G31.9 Degenerative disease of nervous system, unspecified
CPT/HCPCS: 70450

== ENCOUNTER 2022-06-27 12:42 | Outpatient (CLI) | payer MEDICARE, OTHER, SELFPAY ==
--- NOTE | 2022-06-27 12:45 | USCV_ITS ---
Gabrielle Li Age: 77 Gender: F : 1945 Exam Date: 06/27/2022 13:52 Ordering Phys: Andrea Gaona MD Technologist: Dl Moser Exam Location: [facility] – [place] Indication: TIA BP: 120 / 74 HR: 63 Rhythm: Sinus Technical Quality: Adequate MEASUREMENTS (Male / Female) Normal Values 2D ECHO LVOT Diameter 2.0 cm LV Ejection Fraction MOD 2C 65.2 % LV Ejection Fraction 2C AL 65.0 % LA Diameter 3.5 cm LA Width 3.8 cm LA Height 4.0 cm RA Width 3.0 cm RA Height 5.3 cm Aorta at Sinotubular Diameter 2.4 cm IVC Diameter 1.6 cm M-MODE Aortic Annulus Diameter 2.6 cm LA Ao Ratio MM 1.2 MV E Point Septal Separation 0.1 cm DOPPLER AV Peak Velocity 99.7 cm/s LVOT Peak Velocity 94.0 cm/s AV Area Cont Eq vti 2.9 cm squared AV Area Cont Eq pk 3.0 cm squared MV Peak Velocity 80.0 cm/s MV Area PHT 3.1 cm squared Mitral E to A Ratio 0.8 MV E' Velocity 25.5 cm/s Mitral E to MV E' Ratio 8.4 Mitral E to LV E' Lateral Ratio 7.7 Mitral E to LV E' Septal Ratio 9.2 TR Peak Velocity 422.5 cm/s TR Peak Gradient 71.4 mmHg TR Mean Velocity 300.1 cm/s TR Mean Gradient 40.9 mmHg TR Velocity Time Integral 106.3 cm Right Atrial Pressure 3.0 mmHg Pulmonary Artery Systolic Pressu 74.4 mmHg PV Peak Velocity 69.7 cm/s RV Acceleration Time 0.1 s RV Ejection Time 0.3 s RV AcT/ET 0.4 FINDINGS Left Ventricle Left ventricle is normal in size. LV systolic function is normal with EF of 60 to 65%. No regional wall motion normalities are seen. Grade 1 diastolic dysfunction Right Ventricle Normal in size and function Right Atrium Normal in size Left Atrium Normal in size Mitral Valve Structurally normal mitral valve. Mild mitral regurgitation. Aortic Valve Structurally normal aortic valve. No significant stenosis. Mild aortic regurgitation. Tricuspid Valve Mild tricuspid regurgitation. Insufficient TR jet to calculate RVSP Pulmonic Valve Not well visualized. Mild pulmonic regurgitation. Pericardium Normal Aorta Normal in size IVC Appears to be normal CONCLUSIONS LV systolic function is normal with EF of 60 to 65%. Grade 1 diastolic dysfunction. Mild mitral regurgitation. Mild aortic regurgitation. Mild tricuspid regurgitation. Mild pulmonic regurgitation. No comparison studies are available. Shakeel Dumont MD (Electronically Signed) Final Date: 04 Jul 2022 10:17 S
--- NOTE | 2022-06-27 13:30 | USCV_ITS ---
GuillermoSandy broweryn Age: 77 Gender: F : 1945 Exam Date: 06/27/2022 13:28 Ordering Phys: Andrea Gaona MD Technologist: Dl Moser Exam Location: [facility] – [place] Indication: TIA Risk Factors: Previous Vascular Surgery: Right Brachial BP: / Left Brachial BP: / Right Left Velocity (cm/s) Spectral Plaque Velocity (cm/s) Spectral Plaque Syst/Diast Broadening Syst/Diast Broadening 45.40/ 8.50 Prox CCA 48.50 / 14.00 50.20/ 13.40 Mid CCA 54.60 / 20.40 48.60/ 13.90 Distal CCA 70.30 / 22.30 51.30/ 15.00 Prox ICA 56.50 / 17.10 97.10/ 22.50 Mid ICA 101.70/ 32.50 91.70/ 21.00 Distal ICA 92.90 / 28.40 75.30 ECA 69.70 1.93 ICA/CCA 1.86 Antegrade Vertebral Antegrade 66.80/ 20.20 cm/s 86.30/ 21.40 cm/s Bi Subclavian Tri 50.80 62.00 FINDINGS Comparison: none available. No significant elevation of systolic or diastolic velocities. Waveforms are normal. Mild carotid atherosclerosis. Antegrade vertebral arteries. CONCLUSIONS Bilateral ICA stenosis less than 50%. Dr. Gege Naik DO (Electronically Signed) Final Date: 27 Jun 2022 14:53 S
== END 2022-06-27 12:43 | disposition home or self-care (01) ==
PROVIDERS: PCP Family Medicine; Visit Provider Family Medicine
DX: G45.9 Transient cerebral ischemic attack, unspecified (principal)
CPT/HCPCS: 93306; 93880

== ENCOUNTER 2022-08-21 16:47 | Outpatient (CLI) | payer MEDICARE, OTHER, SELFPAY ==
[2022-08-21 17:39] LABS: Basophils % 0.2 %; Hematocrit 38.6 % (37.0-47.0); Hemoglobin 12.5 g/dL (11.5-15.3); Lymphocytes # 0.7 10^3/uL (0.8-4.8); Lymphocytes % 4.3 %; Mean Corpuscular HGB Conc 32.4 g/dL (30.0-36.0); Mean Corpuscular Hemoglobin 32.1 pg (28.0-34.0); Mean Platelet Volume 10.8 fL (7.4-10.4); Monocytes # 1.2 10^3/uL (0.2-0.9); Neutrophils # 14.81 10^3/uL (1.8-7.7); Neutrophils % 85.7 %; Nucleated Red Blood Cells % 0 %; Platelet Count 233 10^3/cmm (130-400); Red Cell Distribution Width 13.3 % (12.1-15.1); White Blood Count 17.3 10^3/uL (4.0-10.0)
[2022-08-21 17:58] LABS: Alanine Aminotransferase 8 U/L (0-33); Albumin Level 4.1 g/dL (3.5-5.2); Alkaline Phosphatase 64 U/L (35-105); Anion Gap 14.1 (5-19); Aspartate Amino Transferase 14 U/L (0-32); Blood Urea Nitrogen 12 mg/dL (8-23); Calcium 9.3 mg/dL (8.5-10.5); Carbon Dioxide 26 mmol/L (22-29); Chloride 94 mmol/L (98-107); Globulin 2.9 g/dL (1.3-4.6); Glucose 118 mg/dL (65-115); Osmolality Calculated 271 mOsm/kg (285-295); Potassium 4.1 mmol/L (3.5-5.1); Sodium 130 mmol/L (136-145); Total Bilirubin 0.7 mg/dL (0.15-1.2)
== END 2022-08-21 16:48 | disposition home or self-care (01) ==
PROVIDERS: PCP Family Medicine; Visit Provider Family Medicine
DX: R10.9 Unspecified abdominal pain (principal); Z51.81 Encounter for therapeutic drug level monitoring; R19.7 Diarrhea, unspecified
CPT/HCPCS: 36415; 74022; 80053; 83630; 85025; 86141; 87506

== ENCOUNTER 2022-08-22 08:09 | Inpatient (IN) | payer MEDICARE, OTHER, SELFPAY ==
[2022-08-22] VITALS (8 sets, daily range): BP systolic 140–186; BP diastolic 59–86; PULSE 64–75; RESP 16–18; TEMP 36.1–36.6; O2SAT 94–98; BMI 25.8
--- NOTE | 2022-08-22 09:17 | ECG_ITS ---
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 Measurements Intervals [place] Rate: 66 P: 66 AR: 175 QRS: 17 QRSD: 90 T: 71 QT: 389 QTc: 409 Interpretive Statements SINUS RHYTHM NONSPECIFIC T-WAVE ABNORMALITY No previous ECG available for comparison Electronically Signed On 08-22-2022 9:54:01 CDT by Aracelis Orr M.D. [id number]
--- NOTE | 2022-08-22 09:17 | CTR_ITS ---
PROCEDURE INFORMATION: Exam: CT Abdomen And Pelvis With Contrast Exam date and time: 08/22/2022 11:00 AM Age: 77 years old Clinical indication: Abdominal pain; Localized; Lower; Additional info: Abd pain TECHNIQUE: Imaging protocol: Computed tomography of the abdomen and pelvis with contrast. Radiation optimization: All CT scans at this facility use at least one of these dose optimization techniques: automated exposure control; mA and/or kV adjustment per patient size (includes targeted exams where dose is matched to clinical indication); or iterative reconstruction. Contrast material: OMNI 350; Contrast volume: 100 ml; Contrast route: INTRAVENOUS (IV); REPORTING DATA: Count of CT and Cardiac NM exams in prior 12 months: This patient has received 3 known CTs and 0 known cardiac nuclear medicine studies in the 12 months prior to the current study. COMPARISON: CT abdomen pelvis wo con [id number] 12/28/2021 1:29 PM RADIATION DOSE METRICS: Total DLP (mGy-cm): 510.2 FINDINGS: Pleural spaces: There is trace pleural fluid and dependent atelectasis on the right. Liver: The liver is normal. Gallbladder and bile ducts: Gallbladder is distended. The wall is thin. No calcified stones. There is no intrahepatic or extrahepatic bile duct dilation. Pancreas: There is moderate atrophy of the pancreas. Spleen: The spleen is unremarkable. Adrenal glands: The adrenal glands are unremarkable. Kidneys and ureters: The kidneys are unremarkable. No hydronephrosis or stones. No ureteral dilation. Stomach and bowel: There is short segment colonic wall thickening and marked pericolonic edema associated with diverticula in the distal sigmoid. There is adjacent fascial thickening. There is no organized fluid collection. There is a punctate focus of gas posterior to distal sigmoid visible on series 3, image 65. This is not clearly intraluminal. No free air in the upper abdomen. The stomach is decompressed, preventing meaningful evaluation of wall thickness. The small bowel is nondilated. The colon is normal proximally. Appendix: The appendix is normal. Intraperitoneal space: There is no free air or significant intraperitoneal free fluid. Vasculature: There is severe aortic atherosclerotic disease. The portal, splenic and superior mesenteric veins are patent. Lymph nodes: There is no lymphadenopathy in the retroperitoneum, mesentery, pelvis or inguinal regions. Urinary bladder: The urinary bladder is unremarkable. Reproductive: The uterus is unremarkable. There is no adnexal mass or large cyst. Bones/joints: There are healed fractures of the right superior and inferior pubic rami. There is a healed fracture of the right sacral ala. There is moderate degenerative disease in the lumbar spine. Soft tissues: The abdominal wall is intact. CT/CT abdomen pelvis w con* [id number] IMPRESSION: 1. Acute distal sigmoid diverticulitis with a tiny focus of questionably extraluminal gas. No intraperitoneal free air. Contained perforation is not excluded. No abscess. 2. Incidental findings above.
--- NOTE | 2022-08-22 09:18 | W.ED.ABDPA2 ---
HPI - Abdominal Pain General: Chief Complaint: Abdominal Pain Stated Complaint: abd pain Time Seen by Provider: 08/22/22 08:16 Source: patient Mode of arrival: ambulatory History of Present Illness: 77-year-old female presents emergency room complaining of lower abdominal pain. This has been going on for a year she said last 24 hours its gotten worse. She has had some diarrhea. She had a white count done yesterday that was mildly elevated. She denies any hematochezia melena hematemesis coffee-ground emesis. She has seen gastroenterology had an EGD but no colonoscopy. 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 She was concerned she may have had a stroke about 6 months ago. She denies any fever sweats chills dysuria urgency or frequency. She is on clopidogrel but no anticoagulants. Denies any fever sweats or chills MD elicited complaint: abdominal pain Onset (ago): year(s) (Abdominal pain x1 year worse last 24 hours) Pain Consistency: intermittent Location: RLQ and LLQ Severity: moderate Quality: cramping Exacerbating factors: nothing Relieving factors: nothing Associated Symptoms: Reports nausea; Denies anorexia, belching, bloating, change in bowel habits, change in stool character, chills, coffee ground emesis, constipation, GI cramping, diarrhea, dyspepsia, dysuria, excessive flatus, fever(s), heartburn, hematochezia, hematuria, hematemesis, fecal incontinence, loose stools, melena, poor appetite, syncope and vomiting Review of Systems Const: Denies: fever(s), chills, fatigue or malaise ENMT: Denies: throat pain, ear or mastoid pain, nasal discharge or nasal congestion Card: Denies: chest pain, palpitations, irregular heart rhythm or syncope Resp: Denies: dyspnea, productive cough or non-productive cough GI: Reports: abdominal pain and nausea; Denies: vomiting, hematemesis, coffee ground emesis, heartburn, diarrhea, constipation, bloating, GI cramping, belching, excessive flatus, fecal incontinence, change in bowel habits, change in stool character, hematochezia or melena : Denies: dysuria, urinary frequency, urinary urgency or hematuria Skin/Breast: Denies: rash or pruritus PFSH ED PFSH: Surgical History History of tibial fracture 2019 - 3 fractures in tibial plateau - [place] Social History Smoking and tobacco status: never smoked Alcohol intake: never Substance/Drug Use: never Marital status: Physical Exam Const: GENERAL APPEARANCE: cooperative and comfortable ORIENTATION/CONSCIOUSNESS: Yes awake, Yes oriented to person, Yes oriented to place and Yes oriented to time HENMT: COMMON NORMALS: normocephalic, atraumatic and hearing grossly normal bilaterally HEAD & SCALP: normocephalic and atraumatic Resp: COMMON NORMALS: normal respiratory effort, No retractions, No use of accessory muscles and clear to auscultation bilaterally AUSCULTATION: clear to auscultation bilaterally Cardio: COMMON NORMALS: regular rate, regular rhythm and No murmurs present (Cardio) RATE: regular rate RHYTHM: regular rhythm GI: COMMON NORMALS: No hepatosplenomegaly present AUSCULTATION: Yes normoactive bowel sounds PALPATION: Yes Tenderness to palpation present (GI) Details: LLQ and RLQ, No Guarding due to palpation present (GI) and Yes No hepatosplenomegaly present : COMMON NORMALS: Yes no CVA tenderness BLADDER/KIDNEY EXAM: Yes no CVA tenderness Back/Pelvis: COMMON NORMALS: no CVA tenderness Extremity: COMMON NORMALS: normal to inspection, capillary refill normal, no clubbing, cyanosis or edema, no calf tenderness and no pedal edema Neuro: SENSORIUM/ORIENTATION: Yes oriented to person, Yes oriented to place and Yes oriented to time Skin: COMMON NORMALS: no rashes or lesions noted GENERAL SKIN EXAM: no rashes or lesions noted Course Vital Signs: Vital signs: Vital Signs Temperature 97.9 F 08/22/22 08:31 Pulse Rate 73 08/22/22 12:19 Respiratory Rate 16 08/22/22 12:19 Blood Pressure 186/86 08/22/22 12:19 Pulse Oximetry 98 08/22/22 12:19 Oxygen Delivery Me thod Room Air 08/22/22 08:31 MDM - Abdominal Pain Medical Decision Making CT shows microperforation of acute diverticulitis there is contained and appears to be extraluminal. Will admit n.p.o. started on IV Cipro and Flagyl consult surgery discussed with hospitalist orders written Medical Records I reviewed the patient's medical records. Lab Data I reviewed the patient's lab results. 08/22/22 09:24 08/22/22 09:24 Labs/Radiology: Radiology Impressions Abdomen/Pelvis CT 08/22/22 09:17 IMPRESSION: 1. Acute distal sigmoid diverticulitis with a tiny focus of questionably extraluminal gas. No intraperitoneal free air. Contained perforation is not excluded. No abscess. 2. Incidental findings above. Laboratory Results WBC 12.2 10^3/uL (4.0-10.0) H 08/22/22 09:24 RBC 3.74 10^6/uL (4.1-5.3) L 08/22/22 09:24 Hgb 12.0 g/dL (11.5-15.3) 08/22/22 09:24 Hct 36.8 % (37.0-47.0) L 08/22/22 09:24 MCV 98.4 fl (81-99) 08/22/22 09:24 MCH 32.1 pg (28.0-34.0) 08/22/22 09:24 MCHC 32.6 g/dL (30.0-36.0) 08/22/22 09:24 RDW 13.2 % (12.1-15.1) 08/22/22 09:24 Plt Count 202 10^3/cmm (130-400) 08/22/22 09:24 MPV 10.4 fL (7.4-10.4) 08/22/22 09:24 Neut % (Auto) 82.4 % 08/22/22 09:24 Lymph % (Auto) 7.8 % 08/22/22 09:24 Lucas % (Auto) 7.9 % 08/22/22 09:24 Eos % (Auto) 0.1 % 08/22/22 09:24 Baso % (Auto) 0.2 % 08/22/22 09:24 Neut # (Auto) 10.04 10^3/uL (1.8-7.7) H 08/22/22 09:24 Lymph # (Auto) 1.0 10^3/uL (0.8-4.8) 08/22/22 09:24 Lucas # (Auto) 1.0 10^3/uL (0.2-0.9) H 08/22/22 09:24 Eos # (Auto) 0.0 10^3/uL (0.0-0.8) 08/22/22 09:24 Baso # (Auto) 0.0 10^3/uL (0.0-0.1) 08/22/22 09:24 Nucleated RBC % (auto) 0 % 08/22/22 09:24 Nucleated RBCs # 0.0 /100WBC 08/22/22 09:24 Sodium 132 mmol/L (136-145) L 08/22/22 09:24 Potassium 3.7 mmol/L (3.5-5.1) 08/22/22 09:24 Chloride 96 mmol/L (98-107) L 08/22/22 09:24 Carbon Dioxide 25 mmol/L (22-29) 08/22/22 09:24 Anion Gap 14.7 (5-19) 08/22/22 09:24 BUN 11 mg/dL (8-23) 08/22/22 09:24 Creatinine 0.8 mg/dL (0.5-0.9) 08/22/22 09:24 GFR Calculation Not Reportable 08/22/22 09:24 Glucose 98 mg/dL (65-115) 08/22/22 09:24 Calculated Osmolality 273 mOsm/kg (285-295) L 08/22/22 09:24 Calcium 9.8 mg/dL (8.5-10.5) 08/22/22 09:24 Total Bilirubin 0.8 mg/dL (0.15-1.2) 08/22/22 09:24 AST 15 U/L (0-32) 08/22/22 09:24 ALT 9 U/L (0-33) 08/22/22 09:24 Alkaline Phosphatase 71 U/L (35-105) 08/22/22 09:24 Total Protein 7.2 g/dL (6.6-8.7) 08/22/22 09:24 Albumin 4.3 g/dL (3.5-5.2) 08/22/22 09:24 Globulin 2.9 g/dL (1.3-4.6) 08/22/22 09:24 Lipase 11 U/L (13-60) L 08/22/22 09:24 Urine Color Yellow (Yellow) 08/22/22 12:06 Urine Appearance Clear (CLEAR) 08/22/22 12:06 Urine pH 7 (5-7) 08/22/22 12:06 Ur Specific [place] 1.005 (1.005-1.030) 08/22/22 12:06 Urine Protein Neg (Negative) 08/22/22 12:06 Urine Glucose (UA) Norm (Normal) 08/22/22 12:06 Urine Ketones Negative (Negative) 08/22/22 12:06 Urine Blood Neg (Negative) 08/22/22 12:06 Urine Nitrate Negative (Negative) 08/22/22 12:06 Urine Bilirubin Neg (Negative) 08/22/22 12:06 Urine Urobilinogen Norm mg/dL (Negative) 08/22/22 12:06 Ur Leukocyte Esterase Negative (Negative) 08/22/22 12:06 Discharge Plan Discharge Condition: Stable Prescriptions: No Action benzonatate 100 mg capsule 100 mg PO TID PRN (Reason: cough) Qty: 30 2RF gabapentin 300 mg capsule 300 mg PO TID Qty: 270 2RF rosuvastatin 10 mg tablet 10 mg PO DAILY@0900 Qty: 90 3RF levothyroxine 125 mcg tablet 125 mcg PO DAILY@0800 Qty: 90 3RF dicyclomine 20 mg tablet 20 mg PO QID PRN (Reason: diarrhea) Qty: 120 3RF clopidogrel 75 mg tablet 75 mg PO DAILY Qty: 30 3RF hydrocodone-acetaminophen 10-325 mg tablet 1 tab PO Q6H PRN (Reason: Pain) 30 Days Qty: 120 0RF duloxetine 60 mg capsule,delayed release(DR/EC) See Rx Instructions .ROUTE .COMPLEX Qty: 90 3RF Dose Instruction: TAKE 1 CAPSULE BY MOUTH ONCE DAILY DIRECTED Rx Instructions: TAKE 1 CAPSULE BY MOUTH ONCE DAILY DIRECTED ciprofloxacin HCl 500 mg tablet 500 mg PO BID 10 Days Qty: 20 0RF metronidazole 500 mg tablet 500 mg PO TID Qty: 30 0RF aspirin 325 mg Tablet 325 - 650 mg PO Q4H PRN (Reason: Headache) midodrine 5 mg Tablet 5 mg PO TID PRN (Reason: LOW BLOOD PRESSURE) Prolia 60 mg/mL Syringe See Rx Instructions .ROUTE .COMPLEX Rx Instructions: 60 mg subcutaneously EVERY SIX MONTHS. DUE IN APRIL calcium 1 tab PO DAILY@0900 ondansetron 4 mg tablet,disintegrating 4 mg PO Q6H PRN (Reason: nausea and vomiting) Qty: 14 0RF Referrals: Andrea Gaona MD [Primary Care Provider] - Coding Level of Care Code ED Hydroelectric Systems Technician for Joel Harden
[2022-08-22 09:39] LABS: Basophils % 0.2 %; Eosinophils % 0.1 %; Hematocrit 36.8 % (37.0-47.0); Lymphocytes % 7.8 %; Mean Corpuscular HGB Conc 32.6 g/dL (30.0-36.0); Mean Corpuscular Hemoglobin 32.1 pg (28.0-34.0); Mean Corpuscular Volume 98.4 fl (81-99); Mean Platelet Volume 10.4 fL (7.4-10.4); Monocytes % 7.9 %; Neutrophils # 10.04 10^3/uL (1.8-7.7); Neutrophils % 82.4 %; Nucleated Red Blood Cells % 0 %; Platelet Count 202 10^3/cmm (130-400); Red Blood Count 3.74 10^6/uL (4.1-5.3); Red Cell Distribution Width 13.2 % (12.1-15.1); White Blood Count 12.2 10^3/uL (4.0-10.0)
[2022-08-22 09:54] LABS: Alanine Aminotransferase 9 U/L (0-33); Albumin Level 4.3 g/dL (3.5-5.2); Alkaline Phosphatase 71 U/L (35-105); Anion Gap 14.7 (5-19); Aspartate Amino Transferase 15 U/L (0-32); Blood Urea Nitrogen 11 mg/dL (8-23); Calcium 9.8 mg/dL (8.5-10.5); Carbon Dioxide 25 mmol/L (22-29); Chloride 96 mmol/L (98-107); Globulin 2.9 g/dL (1.3-4.6); Glucose 98 mg/dL (65-115); Lipase 11 U/L (13-60); Osmolality Calculated 273 mOsm/kg (285-295); Potassium 3.7 mmol/L (3.5-5.1); Sodium 132 mmol/L (136-145); Total Bilirubin 0.8 mg/dL (0.15-1.2); Total Protein 7.2 g/dL (6.6-8.7)
[2022-08-22] MEDS: iohexol 350 mg/mL 500 mL Btl (per mL) IV (11:38)
[2022-08-22] MEDS: metroNIDAZOLE IV 500 MG/100 ML PREMIX 100 MG IV (12:07)
[2022-08-22 12:28] LABS: Add Urine Microscopic? NO; Charge for UA Resulting for Rev
[2022-08-22 12:36] LABS: Blood Urine Neg (Negative); Glucose Urine UA Norm (Normal); Ketones Urine Negative (Negative); Nitrate Urine Negative (Negative); Protein Urine Neg (Negative); Specific Gravity, Urine 1.005 (1.005-1.030); Urine Appearance Clear (CLEAR); Urine Color Yellow (Yellow); pH Urine 7 (5-7)
[2022-08-22 12:37] LABS: Bilirubin Urine Neg (Negative); Leukocyte Esterase Urine Negative (Negative); Urobilinogen Urine Norm (Negative)
--- NOTE | 2022-08-22 12:51 | P.HP_ITS ---
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 Elizondo has been notified, patient has been started antibiotics Patient is stating that she has seen her PCP who did some blood work such as CBC and BMP are leukocytosis worse remarkable, she was asked to go to the ER in case of further worsening She has not taken any antibiotics as of yet, she is denying nausea, vomiting endorsing constipation takes MiraLAX, she is on opiates for her back pain Patient is stating that her brother is suffering from colon cancer he is 2 years younger than her, her last colonoscopy was unremarkable he has not been diagnosed with any malignant pathological polyps Review of Systems Const: Reports: chills Eyes: Denies: change in vision ENMT: Denies: swelling of lips/tongue Card: Denies: chest pain Resp: Denies: dyspnea GI: Reports: abdominal pain and constipation Musc: Denies: neck pain Skin/Breast: Denies: rash Medications/Allergies Home Medications Medication Instructions Recorded Confirmed Last Taken Type denosumab 60 mg/mL subcutaneous See Rx Instructions .Route .COMPLEX 04/07/20 08/22/22 05/24/22 History syringe (Prolia) midodrine 5 mg tablet 5 mg PO TID PRN LOW BLOOD PRESSURE 04/07/20 08/22/22 Unknown History ondansetron 4 mg disintegrating 4 mg PO Q6H PRN nausea and 04/07/20 08/22/22 Unknown Rx tablet vomiting #14 tabs gabapentin 300 mg capsule 300 mg PO TID #270 caps 12/07/21 08/22/22 Unknown Rx hydrocodone 10 mg-acetaminophen 1 tab PO Q6H PRN Pain 30 days #120 07/24/22 08/22/22 Unknown Rx 325 mg tablet tabs ciprofloxacin HCl 500 mg tablet 500 mg PO BID 10 days #20 tabs 08/21/22 08/22/22 Unknown Rx metronidazole 500 mg tablet 500 mg PO TID #30 tabs 08/21/22 08/22/22 Unknown Rx Salt Tabs 5 mg PO BID 08/22/22 08/22/22 Unknown History calcium carbonate 600 mg calcium 600 mg PO BEDTIME 08/22/22 08/22/22 08/21/22 History (1,500 mg) tablet (Calcium) clopidogrel 75 mg tablet 75 mg PO BEDTIME 08/22/22 08/22/22 08/21/22 History dicyclomine 20 mg tablet 20 mg PO QID PRN Cramps 08/22/22 08/22/22 08/22/22 History duloxetine 60 mg capsule,delayed 60 mg PO BEDTIME 08/22/22 08/22/22 08/21/22 History release levothyroxine 125 mcg tablet 125 mcg PO BEDTIME 08/22/22 08/22/22 08/21/22 History rosuvastatin 10 mg tablet 10 mg PO BEDTIME 08/22/22 08/22/22 08/21/22 History Allergies Allergy/AdvReac Type Severity Reaction Status Date / Time No Known Allergies Allergy Verified 08/22/22 12:51 PFSH Acute PFSH: Medical History (Updated 08/22/22 @ 17:13 by Moshe Mayfield MD) Abdominal pain Lumbar radiculopathy Lung nodule Macrocytosis Orthostatic hypotension Osteoporosis DO NOT REMOVE, LINKED TO TX PLAN Pneumonia Scoliosis TIA (transient ischemic attack) Surgical History History of tibial fracture 2019 - 3 fractures in tibial plateau [facility] Social History Smoking and tobacco status: never smoked Alcohol intake: never Substance/Drug Use: never Marital status: Vitals/I&O/Wt Last Vital Signs Temp 97.9 F 08/22/22 08:31 Pulse 73 08/22/22 12:19 Resp 16 08/22/22 12:19 BP 186/86 08/22/22 12:19 Pulse Ox 98 08/22/22 12:19 O2 Del Method Room Air 08/22/22 08:31 Weight last 48 hrs Weight 77.111 kg Physical Exam Narrative: Patient laying supine Dehydrated Abdomen tender left lower quadrant GCS 15 S1, S2 Currently on room air Appropriate mood and affect Nonfocal neuro exam When at the bedside Data 08/22/22 09:24 07/11/23 09:24 Micro: Microbiology 08/22/22 12:14 Blood Culture - Preliminary Blood SPECIMEN COLLECTED 08/22/22 12:14 Blood Culture - Preliminary Blood SPECIMEN COLLECTED A&P Assessment and plan (1) Diverticulitis: Plan Acute diverticulitis with microperforation Monitor for any signs of worsening with fever or worsening leukocytosis I will keep her n.p.o. Start her on broad-spectrum antibiotics Monitor closely Opioids for analgesia Patient has been constipated in the past Family history of colon cancer, will need outpatient colonoscopy once diverticulitis episode is over N.p.o. DVT prophylaxis heparin DNR/DNI goals of care discussed with the patient Attention related to pain, optimize analgesics and antihypertensive regimen Attestations Medical Necessity Statement*: More than 2 midnights anticipated Diagnoses Diverticulitis K57.92
--- NOTE | 2022-08-22 13:12 | PC.PHAR ---
pts verified pts medications-cipro 500mg bid and flagyl 500mg tid filled 08/22/22 10d/s pts states pt not started taking as of 08/22/22-pts states the pt takes salt tabs from [facility] states they are 5mg bid-pts states the pt takes gabapentin 300mg tid ext shows last filled 03/02/22 90d/s-notes are made in the pharmacy comments
[2022-08-22] MEDS: ciprofloxacin 400 MG/200 ML PREMIX 200 MG IV (14:50)
[2022-08-22] MEDS: vancomycin 1,250 MG/250 ML PIGGYBACK 250 MG IV (16:32)
[2022-08-22] MEDS: morphine 4 mg/mL SDV 1 mL 2 MG IVP ×2 (16:33→19:59)
[2022-08-22] MEDS: heparin 5,000 unit/mL INJ 1 mL 5000 UNIT SUBCUT (16:33)
--- NOTE | 2022-08-22 17:19 | PM.CONSULT ---
Providers/Reason For Consult Consulting Physician/Specialty*: Dr. Christian Elizondo, DO/General surgery Reason for Consult*: Complicated diverticulitis Attending Physician: Moshe Mayfield MD Primary Care Provider: Andrea Gaona MD History of Present Illness History of Present Illness Gabrielle Li is a 77 year old female who presented to the hospital with about a 1 week history of abdominal pain. Her pain is diffuse but mostly in the left lower quadrant. It is sharp. Palpation makes pain worse. Nothing makes pain better. She denies any nausea or vomiting. Denies any diarrhea, constipation, hematochezia and/or melena. Last colonoscopy was in 2019. She has an extensive family history of colon cancer. Denies any fever or chills. CT of the abdomen pelvis reveals sigmoid diverticulitis with a contained microperforation. She has never had diverticulitis before. Review of Systems General: Reports: 10 or more systems reviewed and unremarkable except in HPI and below Medications/Allergies Home Medications Medication Instructions Recorded Confirmed Last Taken Type denosumab 60 mg/mL subcutaneous See Rx Instructions .Route .COMPLEX 04/07/20 08/22/22 05/24/22 History syringe (Prolia) midodrine 5 mg tablet 5 mg PO TID PRN LOW BLOOD PRESSURE 04/07/20 08/22/22 Unknown History ondansetron 4 mg disintegrating 4 mg PO Q6H PRN nausea and 04/07/20 08/22/22 Unknown Rx tablet vomiting #14 tabs gabapentin 300 mg capsule 300 mg PO TID #270 caps 12/07/21 08/22/22 Unknown Rx hydrocodone 10 mg-acetaminophen 1 tab PO Q6H PRN Pain 30 days #120 07/24/22 08/22/22 Unknown Rx 325 mg tablet tabs ciprofloxacin HCl 500 mg tablet 500 mg PO BID 10 days #20 tabs 08/21/22 08/22/22 Unknown Rx metronidazole 500 mg tablet 500 mg PO TID #30 tabs 08/21/22 08/22/22 Unknown Rx Salt Tabs 5 mg PO BID 08/22/22 08/22/22 Unknown History calcium carbonate 600 mg calcium 600 mg PO BEDTIME 08/22/22 08/22/22 08/21/22 History (1,500 mg) tablet (Calcium) clopidogrel 75 mg tablet 75 mg PO BEDTIME 07/01/0408/22/22 08/21/22 History dicyclomine 20 mg tablet 20 mg PO QID PRN Cramps 08/22/22 08/22/22 08/22/22 History duloxetine 60 mg capsule,delayed 60 mg PO BEDTIME 08/22/22 08/22/22 08/21/22 History release levothyroxine 125 mcg tablet 125 mcg PO BEDTIME 08/22/22 08/22/22 08/21/22 History rosuvastatin 10 mg tablet 10 mg PO BEDTIME 08/22/22 08/22/22 08/21/22 History Allergies Allergy/AdvReac Type Severity Reaction Status Date / Time No Known Allergies Allergy Verified 08/22/22 12:51 Current Medications Generic Name Dose Route Start Last Admin Trade Name Freq PRN Reason Stop Dose Admin Heparin Sodium (Porcine) 5,000 unit 08/22/22 14:31 08/23/22 02:13 Heparin 5,000 Unit/Ml Inj 1 Ml SUBCUT 5,000 unit Q12H ANTONAI Administration Vancomycin/PEG/NADA/Lysine/Water 1,250 mg in 250 mls @ 250 mls/hr 08/22/22 15:30 08/22/22 17:34 Vancocin IV Infused Q18H ANTONIA Infusion Piperacillin Sod/Tazobactam 50 mls @ 12.5 mls/hr 08/22/22 15:30 08/23/22 02:13 Sod 3.375 gm/ Sodium Chloride IV 12.5 mls/hr Q8H ANTONIA Administration Morphine Sulfate 2 mg 08/22/22 14:31 08/22/22 16:33 Morphine 4 Mg/Ml Sdv 1 Ml IVP 2 mg Q4H PRN Administration SEVERE PAIN PFSH Acute PFSH: Medical History Abdominal pain Lumbar radiculopathy Lung nodule Macrocytosis Orthostatic hypotension Osteoporosis DO NOT REMOVE, LINKED TO TX PLAN Pneumonia Scoliosis TIA (transient ischemic attack) Surgical History History of tibial fracture 2019 - 3 fractures in tibial plateau [facility] Social History Smoking and tobacco status: never smoked Alcohol intake: never Substance/Drug Use: never Marital status: Vitals/I&O/Wt Last Vital Signs Temp 97.1 F L 08/23/22 04:54 Pulse 70 08/23/22 04:54 Resp 16 08/23/22 04:54 BP 160/80 08/23/22 04:54 Pulse Ox 92 08/23/22 04:54 O2 Del Method Room Air 08/22/22 15:14 08/22/22 08/22/22 08/23/22 14:59 22:59 06:59 Intake Total 100 / 100 500 / 600 240 / 840 Balance 100 / 100 500 / 600 240 / 840 Weight last 48 hrs Weight 170 lb Physical Exam Narrative: General : Patient is well developed , no acute distress, oriented x3 Head : Normal cephalic, a-traumatic. Ears : Pinnae and external canal are normal. Hearing is normal. Eyes : PERRLA, Sclera and injection are normal. No conjunctival discharge. Nose : Mucous membranes are without erythema. Throat : buccal mucosa is normal, gums are without significant recession or hypertrophy. Lungs : Equal chest rise bilaterally, no use of accessory muscles, trachea is midline. Cor : Rate and rhythm are normal. Abdomen : Soft, mild distention, tender to palpation left lower quadrant, no g/r/m Extremities : No edema, no cyanosis or clubbing, dorsalis pedis pulses are present bilaterally, non-tender to palpation of calves. Upper extremities are normal bilaterally. Back : non-tender to palpation, no CVA tenderness. Neuro : CN II - XII intact, Upper and lower extremities have equal and full strength Data 08/23/22 04:35 08/23/22 04:35 Micro: Microbiology 08/22/22 12:14 Blood Culture - Preliminary Blood SPECIMEN COLLECTED 08/22/22 12:14 Blood Culture - Preliminary Blood SPECIMEN COLLECTED A&P Assessment and plan (1) Diverticulitis of large intestine with complication: Plan IV fluids Antibiotics N.p.o. Conservative management for now. Will follow If she manages to avoid surgery during this hospital stay, she will need a follow-up colonoscopy in 4 to 6 weeks followed by elective sigmoidectomy. She would likely need a repeat CT prior to discharge Coding Level of Care Code 63078 Diagnoses Diverticulitis of large intestine with complication K57.32
[2022-08-22] MEDS: piperacillin-tazobactam 3.375 GM in sodium chloride 0.9% (plus) 50 ML IV (17:56)
[2022-08-23] VITALS (9 sets, daily range): BP systolic 160–189; BP diastolic 70–85; PULSE 65–78; RESP 16–18; TEMP 36–36.4; O2SAT 92–97
[2022-08-23] MEDS: piperacillin-tazobactam 3.375 GM in sodium chloride 0.9% (plus) 50 ML IV ×3 (02:13→18:01)
[2022-08-23] MEDS: heparin 5,000 unit/mL INJ 1 mL 5000 UNIT SUBCUT ×2 (02:13→15:38)
[2022-08-23 05:13] LABS: Basophils % 0.2 %; Eosinophils % 0.5 %; Hematocrit 36.5 % (37.0-47.0); Hemoglobin 11.8 g/dL (11.5-15.3); Lymphocytes # 0.8 10^3/uL (0.8-4.8); Lymphocytes % 9.5 %; Mean Corpuscular HGB Conc 32.3 g/dL (30.0-36.0); Mean Corpuscular Hemoglobin 32.6 pg (28.0-34.0); Mean Corpuscular Volume 100.8 fl (81-99); Mean Platelet Volume 10.7 fL (7.4-10.4); Monocytes # 0.8 10^3/uL (0.2-0.9); Monocytes % 9.3 %; Neutrophils # 6.84 10^3/uL (1.8-7.7); Neutrophils % 77.8 %; Nucleated Red Blood Cells % 0 %; Platelet Count 202 10^3/cmm (130-400); Red Blood Count 3.62 10^6/uL (4.1-5.3); Red Cell Distribution Width 13.3 % (12.1-15.1); White Blood Count 8.8 10^3/uL (4.0-10.0)
[2022-08-23 05:31] LABS: Blood Urea Nitrogen 10 mg/dL (8-23); C Reactive Protein 143.5 mg/L (0.0-4.9); Calcium 9.4 mg/dL (8.5-10.5); Carbon Dioxide 24 mmol/L (22-29); Chloride 100 mmol/L (98-107); Glucose 78 mg/dL (65-115); Magnesium 1.8 mg/dL (1.7-2.3); Osmolality Calculated 280 mOsm/kg (285-295); Sodium 136 mmol/L (136-145)
[2022-08-23] MEDS: morphine 4 mg/mL SDV 1 mL 2 MG IVP ×3 (07:27→16:54)
[2022-08-23] MEDS: vancomycin 1,250 MG/250 ML PIGGYBACK 250 MG IV (08:50)
--- NOTE | 2022-08-23 10:43 | PM.PN ---
Subjective Subjective: No fever normal leukocytosis trending down Patient has not endorsed worsening of pain I will have her start clear liquid diet I did inform her that in case of nausea, vomiting worsening of pain I will switch her back to n.p.o. status If she remains stable by tomorrow repeat CT scan in the morning if there is no worsening she might be able to go home on oral antibiotics for 10 days and follow-up with Dr. Elizondo outpatient, she is in agreement with the plan is at the bedside Vitals/I&O/Wt Last Vital Signs Temp 97.3 F L 08/23/22 07:28 Pulse 78 08/23/22 08:00 Resp 18 08/23/22 08:00 BP 189/84 08/23/22 07:28 Pulse Ox 97 08/23/22 08:00 O2 Del Method Room Air 08/23/22 08:00 08/22/22 08/23/22 08/23/22 22:59 06:59 14:59 Intake Total 500 / 600 240 / 840 780 / 780 Balance 500 / 600 240 / 840 780 / 780 Weight last 48 hrs Weight 77.111 kg Physical Exam Narrative: Bowel sounds present Abdomen soft overall except left lower quadrant, tenderness with mild improvement left lower quadrant area Awake and alert GCS 15 Nonfocal neuro exam Currently on room air Pleasant and cooperative S1, S2 Audible stridor or wheezing Data 08/23/22 04:35 08/23/22 04:35 Micro: Microbiology 08/22/22 12:14 Blood Culture - Preliminary Blood SPECIMEN COLLECTED 08/22/22 12:14 Blood Culture - Preliminary Blood SPECIMEN COLLECTED A&P Assessment and plan (1) Diverticulitis of large intestine with complication: Plan Diverticulitis with microperforation Afebrile No leukocytosis Start clear liquids today Repeat CT scan with contrast tomorrow Continue vancomycin and Zosyn Continue opioids, monitor her response on clear liquids today Continue IV fluids as well If clinically stable we might be able to discharge her tomorrow with 10 days of p.o. antibiotics and have her follow-up with Dr. Elizondo outpatient In case of any worsening we will watch her until Sunday on IV antibiotic Patient is in agreement with the plan DVT prophylaxis heparin Clear liquid diet Pain well managed on morphine Continue levothyroxine 125 mics New diagnosis of hypertension Patient is hypertensive, I will hold midodrine at this point, I do not see any antihypertensive regimen in her home medications, she is not in severe pain, I will add low-dose lisinopril at this point and watch response Attestations Medical Necessity Statement*: Continue medical management Diagnoses Diverticulitis of large intestine with complication K57.32
[2022-08-23] MEDS: lisinopril 10 mg Tablet PO (11:08)
[2022-08-23] MEDS: levothyroxine 125 mcg Tablet PO (20:03)
[2022-08-24] VITALS (9 sets, daily range): BP systolic 146–197; BP diastolic 80–95; PULSE 65–78; RESP 14–20; TEMP 36.4–36.8; O2SAT 92–96
[2022-08-24] MEDS: morphine 4 mg/mL SDV 1 mL 2 MG IVP ×2 (00:13→12:59)
[2022-08-24] MEDS: piperacillin-tazobactam 3.375 GM in sodium chloride 0.9% (plus) 50 ML IV ×2 (01:40→12:22)
[2022-08-24] MEDS: heparin 5,000 unit/mL INJ 1 mL 5000 UNIT SUBCUT ×2 (01:41→14:25)
--- NOTE | 2022-08-24 04:56 | PC.NURSE ---
CONFUSION Woke up very confused and had pulled IV out. Would not let nurse replace IV. Says she does not like needles and started to be combative with attempt to restart the IV. Disoriented to place and situation. Don was called and pt calmed with talking to him on the phone. He says she does have history of some confusion. He is coming in and will place IV at that time
--- NOTE | 2022-08-24 05:30 | PC.NURSE ---
IV is here and has been trying to get pt to let us replace the IV. So far is not having any luck with this. Pt adamantly refusing needlesticks
--- NOTE | 2022-08-24 07:06 | CTR_ITS ---
PROCEDURE INFORMATION: Exam: CT Abdomen And Pelvis With Contrast Exam date and time: 08/24/2022 12:08 PM Age: 77 years old Clinical indication: Condition or disease; Intestinal condition; Diverticulitis TECHNIQUE: Imaging protocol: Computed tomography of the abdomen and pelvis with contrast. Radiation optimization: All CT scans at this facility use at least one of these dose optimization techniques: automated exposure control; mA and/or kV adjustment per patient size (includes targeted exams where dose is matched to clinical indication); or iterative reconstruction. Contrast material: OMNI 350; Contrast volume: 100 ml; Contrast route: INTRAVENOUS (IV); REPORTING DATA: Count of CT and Cardiac NM exams in prior 12 months: This patient has received 4 known CTs and 0 known cardiac nuclear medicine studies in the 12 months prior to the current study. COMPARISON: 1. CT abdomen pelvis w con* [id number] 08/22/2022 11:[address] abdomen pelvis wo con [id number] 12/28/2021 1:29 PM RADIATION DOSE METRICS: Total DLP (mGy-cm): 510.95 FINDINGS: Lungs: There is an 10 mm diameter part solid nodule in the left lower lobe on series 3, image 16. This finding is stable since 12/28/2021. Liver: The liver is normal. Gallbladder and bile ducts: There is high attenuation material within the gallbladder lumen consistent with sludge. There is no intrahepatic or extrahepatic bile duct dilation. Pancreas: There is moderate atrophy of the pancreas. Spleen: The spleen is unremarkable. Adrenal glands: The adrenal glands are unremarkable. Kidneys and ureters: The kidneys are unremarkable. No hydronephrosis or stones. No ureteral dilation. Stomach and bowel: The stomach is decompressed, preventing meaningful evaluation of wall thickness. The small bowel is nondilated. There is focal diverticulitis in the distal sigmoid colon with short segment colonic mucosal edema and wall thickening with associated pericolonic edema and fascial thickening, similar to the findings on 08/22/2022. There is a stable tiny focus of extraluminal gas adjacent to the posterior margin of the distal sigmoid visible on series 3, image 61, stable since 08/22/2022. The sigmoid is contrast filled. There is no extraluminal contrast. No organized abscess. There are few scattered noninflamed diverticula in the proximal sigmoid colon. The colon is normal more proximally. Appendix: The proximal appendix is of normal caliber and is filled with contrast. More distally the appendix is mildly dilated measuring 8-10 mm and contains low density material. At the appendiceal tip there is a 14 mm nodule which is hyperattenuating relative to skeletal muscle. The nodule was previously partially obscured but is visible in retrospect. The nodule is enhancing based on comparison with noncontrast CT abdomen pelvis on 12/28/2021. See axial series 3, image 52 and coronal series 5, image 22. See also sagittal series 6 image 52 through 57. No sign of acute appendicitis. Intraperitoneal space: No free air is seen in the upper abdomen. Vasculature: There is moderate aortic atherosclerotic disease. The portal, splenic and superior mesenteric veins are patent. Lymph nodes: There is no lymphadenopathy in the retroperitoneum, mesentery, pelvis or inguinal regions. Urinary bladder: The urinary bladder is decompressed, preventing meaningful evaluation of wall thickness. Reproductive: The uterus is unremarkable. There is no adnexal mass or large cyst. Extraperitoneal space: There is increased edema in the perianal fat and new trace presacral fluid. Bones/joints: There is moderate degenerative disease in the lumbar spine. The pelvis and hips are unremarkable. Soft tissues: Unremarkable. CT/CT abdomen pelvis w con* [id number] IMPRESSION: 1. Distal sigmoid diverticulitis is unchanged since 08/22/2022. Stable trace extraluminal gas suggests contained perforation. There is no luminal contrast extravasation. There is no organized abscess. There is no sign of kamarn perforation (no free air in the upper abdomen). 2. Increased edema in the perianal fat and new trace presacral fluid. This finding is consistent with sequelae of distal sigmoid diverticulitis. No organized abscess. 3. 14 mm enhancing mass at the appendiceal tip, stable in size since 12/28/2021. 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 Recommend surgical consultation. 4. 10 mm diameter part solid nodule in the left lower lobe, stable since 12/28/2021. Recommend annual CT Chest for 5 years. (Reference: Jonah) 5. Incidental findings above. REFERENCES: Jonah Golden et al. Guidelines for Management of Incidental Pulmonary Nodules Detected on CT Images: From the Fleischner Society 2017. Radiology. 2017;284(1):228-243.
[2022-08-24 08:08] LABS: Basophils % 0.6 %; Eosinophils # 0.1 10^3/uL (0.0-0.8); Eosinophils % 1.5 %; Hematocrit 35.9 % (37.0-47.0); Hemoglobin 11.7 g/dL (11.5-15.3); Lymphocytes # 0.9 10^3/uL (0.8-4.8); Lymphocytes % 16.9 %; Mean Corpuscular HGB Conc 32.6 g/dL (30.0-36.0); Mean Corpuscular Hemoglobin 32.1 pg (28.0-34.0); Mean Corpuscular Volume 98.6 fl (81-99); Mean Platelet Volume 10.3 fL (7.4-10.4); Monocytes # 0.5 10^3/uL (0.2-0.9); Monocytes % 9.2 %; Neutrophils # 3.83 10^3/uL (1.8-7.7); Neutrophils % 70.1 %; Nucleated Red Blood Cells % 0 %; Platelet Count 231 10^3/cmm (130-400); Red Blood Count 3.64 10^6/uL (4.1-5.3); Red Cell Distribution Width 13.1 % (12.1-15.1); White Blood Count 5.5 10^3/uL (4.0-10.0)
[2022-08-24 08:31] LABS: Anion Gap 15.6 (5-19); Blood Urea Nitrogen 7 mg/dL (8-23); Carbon Dioxide 24 mmol/L (22-29); Chloride 103 mmol/L (98-107); Glucose 100 mg/dL (65-115); Osmolality Calculated 286 mOsm/kg (285-295); Potassium 3.6 mmol/L (3.5-5.1); Sodium 139 mmol/L (136-145)
--- NOTE | 2022-08-24 08:48 | P.DS_ITS ---
Discharge Providers Date of Admission: 08/22/22 13:44 Date of Discharge: August 24, 2022 Attending Provider at Admission: Moshe Mayfield MD Attending Provider at Discharge: Moshe Mayfield MD Primary Care Provider: Andrea Gaona MD Diagnoses at Discharge Discharge Diagnosis (1) Diverticulitis of large intestine with complication: Status: Acute Reason for Visit Reason for Visit: abd pain Hospital Course Hospital Course 77-year female who was admitted for management evaluation of acute diverticulitis with microperforation, she was not septic, remained hemodynamically stable, during hospitalization required antihypertensive regimen, stage II to stage III hypertension, patient required IV Zosyn throughout hospitalization, no leukocytosis or fever, creatinine normal after getting CT scan of abdomen pelvis with contrast, patient tolerated diet,A bdominal pain is improving, had 1 bowel movement She will follow-up with Dr. Elizondo outpatient for colonoscopy and possible surgical intervention, she will get ciprofloxacin and Flagyl 7-day course at the time of discharge, we will repeat her CT abdomen pelvis with contrast before her discharge on 08/24 Physical Exam Narrative: Awake and alert Abdomen soft Tolerating diet Pleasant and cooperative Currently on room air Discharge Data Studies Completed and Pending Completed Studies During Hospitalization Category Date Time Status CT abdomen pelvis w con* [id number] Stat Cat Scan 08/22/22 09:17 Completed Pending at discharge Category Date Time Status CT abdomen pelvis w con* [id number] Routine Cat Scan 08/24/22 07:06 Ordered Blood Culture Stat Lab 08/22/22 12:14 Results Vancomycin Trough Timed Lab 08/24/22 19:30 Ordered Radiology Impressions Abdomen/Pelvis CT 08/22/22 09:17 IMPRESSION: 1. Acute distal sigmoid diverticulitis with a tiny focus of questionably extraluminal gas. No intraperitoneal free air. Contained perforation is not excluded. No abscess. 2. Incidental findings above. Laboratory Results WBC 5.5 10^3/uL (4.0-10.0) 08/24/22 07:44 RBC 3.64 10^6/uL (4.1-5.3) L 08/24/22 07:44 Hgb 11.7 g/dL (11.5-15.3) 08/24/22 07:44 Hct 35.9 % (37.0-47.0) L 08/24/22 07:44 MCV 98.6 fl (81-99) 08/24/22 07:44 MCH 32.1 pg (28.0-34.0) 08/24/22 07:44 MCHC 32.6 g/dL (30.0-36.0) 08/24/22 07:44 RDW 13.1 % (12.1-15.1) 08/24/22 07:44 Plt Count 231 10^3/cmm (130-400) 08/24/22 07:44 MPV 10.3 fL (7.4-10.4) 08/24/22 07:44 Neut % (Auto) 70.1 % 08/24/22 07:44 Lymph % (Auto) 16.9 % 08/24/22 07:44 [place] % (Auto) 9.2 % 08/24/22 07:44 Eos % (Auto) 1.5 % 08/24/22 07:44 Baso % (Auto) 0.6 % 08/24/22 07:44 Neut # (Auto) 3.83 10^3/uL (1.8-7.7) 08/24/22 07:44 Lymph # (Auto) 0.9 10^3/uL (0.8-4.8) 08/24/22 07:44 [place] # (Auto) 0.5 10^3/uL (0.2-0.9) 08/24/22 07:44 Eos # (Auto) 0.1 10^3/uL (0.0-0.8) 08/24/22 07:44 Baso # (Auto) 0.0 10^3/uL (0.0-0.1) 08/24/22 07:44 Nucleated RBC % (auto) 0 % 08/24/22 07:44 Nucleated RBCs # 0.0 /100WBC 08/24/22 07:44 Sodium 139 mmol/L (136-145) 08/24/22 07:44 Potassium 3.6 mmol/L (3.5-5.1) 08/24/22 07:44 Chloride 103 mmol/L (98-107) 08/24/22 07:44 Carbon Dioxide 24 mmol/L (22-29) 08/24/22 07:44 Anion Gap 15.6 (5-19) 08/24/22 07:44 BUN 7 mg/dL (8-23) L 08/24/22 07:44 Creatinine 0.7 mg/dL (0.5-0.9) 08/24/22 07:44 GFR Calculation Not Reportable 08/24/22 07:44 Glucose 100 mg/dL (65-115) 08/24/22 07:44 Calculated Osmolality 286 mOsm/kg (285-295) 08/24/22 07:44 Calcium 9.0 mg/dL (8.5-10.5) 08/24/22 07:44 Magnesium 1.8 mg/dL (1.7-2.3) 08/23/22 04:35 Total Bilirubin 0.8 mg/dL (0.15-1.2) 08/22/22 09:24 AST 15 U/L (0-32) 08/22/22 09:24 ALT 9 U/L (0-33) 08/22/22 09:24 Alkaline Phosphatase 71 U/L (35-105) 08/22/22 09:24 C-Reactive Protein 143.5 mg/L (0.0-4.9) H 08/23/22 04:35 Total Protein 7.2 g/dL (6.6-8.7) 08/22/22 09:24 Albumin 4.3 g/dL (3.5-5.2) 08/22/22 09:24 Globulin 2.9 g/dL (1.3-4.6) 08/22/22 09:24 Lipase 11 U/L (13-60) L 08/22/22 09:24 Procalcitonin 0.20 ng/mL (0-0.5) 08/22/22 09:24 Urine Color Yellow (Yellow) 08/22/22 12:06 Urine Appearance Clear (CLEAR) 08/22/22 12:06 Urine pH 7 (5-7) 08/22/22 12:06 Ur Specific [place] 1.005 (1.005-1.030) 08/22/22 12:06 Urine Protein Neg (Negative) 08/22/22 12:06 Urine Glucose (UA) Norm (Normal) 08/22/22 12:06 Urine Ketones Negative (Negative) 08/22/22 12:06 Urine Blood Neg (Negative) 08/22/22 12:06 Urine Nitrate Negative (Negative) 08/22/22 12:06 Urine Bilirubin Neg (Negative) 08/22/22 12:06 Urine Urobilinogen Norm mg/dL (Negative) 08/22/22 12:06 Ur Leukocyte Esterase Negative (Negative) 08/22/22 12:06 Vitals Last Vital Signs Temp 98.3 F 08/24/22 07:43 Pulse 68 08/24/22 07:51 Resp 16 08/24/22 07:51 BP 197/87 08/24/22 07:43 Pulse Ox 92 08/24/22 07:51 O2 Del Method Room Air 08/24/22 07:51 Discharge Plan Discharge Patient Disposition: Home Condition: Stable Prescriptions: New amlodipine 10 mg Tablet 10 mg PO DAILY Qty: 60 0RF hydralazine 10 mg Tablet 10 mg PO TID Qty: 90 0RF lisinopril 20 mg Tablet 20 mg PO DAILY Qty: 60 0RF Continued gabapentin 300 mg capsule 300 mg PO TID Qty: 270 2RF hydrocodone-acetaminophen 10-325 mg tablet 1 tab PO Q6H PRN (Reason: Pain) 30 Days Qty: 120 0RF midodrine 5 mg Tablet 5 mg PO TID PRN (Reason: LOW BLOOD PRESSURE) Prolia 60 mg/mL Syringe See Rx Instructions .ROUTE .COMPLEX Rx Instructions: 60 mg subcutaneously EVERY SIX MONTHS ondansetron 4 mg tablet,disintegrating 4 mg PO Q6H PRN (Reason: nausea and vomiting) Qty: 14 0RF Calcium 600 600 mg calcium (1,500 mg) Tablet 600 mg PO BEDTIME Salt Tabs 5 mg PO BID clopidogrel 75 mg tablet 75 mg PO BEDTIME dicyclomine 20 mg tablet 20 mg PO QID PRN (Reason: Cramps) levothyroxine 125 mcg tablet 125 mcg PO BEDTIME rosuvastatin 10 mg tablet 10 mg PO BEDTIME duloxetine 60 mg capsule,delayed release(DR/EC) 60 mg PO BEDTIME metronidazole 500 mg tablet 500 mg PO TID Qty: 21 0RF Rx Instructions: for 10 days (rx filled 08/22/22) pt not started as of 08/22/22 ciprofloxacin HCl 500 mg tablet 500 mg PO BID 7 Days Qty: 14 0RF Rx Instructions: for 10 days (rx filled 08/22/22) pt not started as of 08/22/22 Discharge Orders: Discharge Order (Routine); Ordered 08/24/22 Ordered By: Moshe Mayfield Referrals: Christian Elizondo DO [Physician] - 2 weeks Andrea Gaona MD [Primary Care Provider] - 09/01/22 12:10 pm Discharge Diet: As Directed Patient Instructions: Opioid Safety Activity Restrictions/Additional Instructions: Try soft diet, full liquid for 1 day and then mechanical soft for 2 days, advance gradually depending on your symptoms For your high blood pressure I have added 3 medications amlodipine and lisinopril and hydralazine Please take amlodipine and lisinopril once a day (these 2 medications initially ) and monitor your blood pressure if your upper number which is systolic blood pressure stays above 150 mmhgthen you can add hydralazine which is 3 times a day Maintain a blood pressure log and show with your primary care doctor so we can try to do medication Discharge Attestations Time Spent in Discharge Care*: greater than 30 min Quality Metrics Clinical Quality Measures [ No reported AMI, CVA or VTE this stay] Coding Level of Care Code Acute Code for Chg Fwd Diagnoses Diverticulitis of large intestine with complication K57.32
[2022-08-24] MEDS: acetaminophen 500 mg Tablet PO (08:57)
[2022-08-24] MEDS: hyDRALAzine 10 mg Tablet PO (09:46)
[2022-08-24] MEDS: amlodipine 10 mg Tablet PO (09:47)
[2022-08-24] MEDS: lisinopril 20 mg Tablet PO (09:47)
[2022-08-24] MEDS: hyDRALAzine 20 mg/mL INJ 1 mL 10 MG IVP (11:37)
== END 2022-08-24 15:00 | disposition home or self-care (01) | DRG 392 ==
LOC: ER 09:22 → MEDSURG 13:45
PROVIDERS: Admitting Provider Internal Medicine; Emergency Provider Family Medicine; PCP Family Medicine; Visit Provider Internal Medicine
DX: K57.20 Diverticulitis of large intestine with perforation and abscess without bleeding (principal); I10 Essential (primary) hypertension; Z79.891 Long term (current) use of opiate analgesic; Z79.01 Long term (current) use of anticoagulants; M54.16 Radiculopathy, lumbar region; M81.0 Age-related osteoporosis without current pathological fracture; Z87.01 Personal history of pneumonia (recurrent); Z86.73 Personal history of transient ischemic attack (TIA), and cerebral infarction without residual deficits; E86.0 Dehydration; Z80.0 Family history of malignant neoplasm of digestive organs; Z66 Do not resuscitate
CPT/HCPCS: 36415; 74022; 74177; 80048; 80053; 81003; 83630; 83690; 83735; 84145; 85025; 86140; 86141; 87040; 87506; 93005; 96365; 96372; 96375; 99285; J0360; J0744; J1644; J2270; J2543; J3370; J3490; Q9967

== ENCOUNTER → 2022-09-08 11:30 | Outpatient (BNVA) | payer MEDICARE, OTHER, SELFPAY | PROVIDERS: PCP Family Medicine; Visit Provider Nurse Practitioner Family | DX: R30.0 Dysuria (principal) | CPT/HCPCS: 81000 ==

== ENCOUNTER 2022-11-27 12:36 | Oncology outpatient (recurring) (ONCR) | payer MEDICARE, OTHER, SELFPAY ==
[2022-11-27] MEDS: denosumab 60 mg SDV SUBCUT (14:19)
[2022-11-27 14:37] LABS: Calcium 10.1 mg/dL (8.5-10.5)
== END 2022-12-12 23:59 | disposition home or self-care (01) ==
PROVIDERS: PCP Family Medicine; Visit Provider Nurse Practitioner
DX: M81.0 Age-related osteoporosis without current pathological fracture (principal)
CPT/HCPCS: 36415; 82310; 96372; J0897

== ENCOUNTER 2022-12-11 22:21 | Emergency (ER) | payer MEDICARE, OTHER, SELFPAY ==
--- NOTE | 2022-12-11 22:25 | CTR_ITS ---
PROCEDURE INFORMATION: Exam: CT Abdomen And Pelvis With Contrast Exam date and time: 12/11/2022 11:48 PM Age: 77 years old Clinical indication: Abdominal pain; Localized; Patient HX: Lower abd pain. History of diverticulitis. ; Additional info: Abd pain, HX of diveritculitis TECHNIQUE: Imaging protocol: Computed tomography of the abdomen and pelvis with contrast. Radiation optimization: All CT scans at this facility use at least one of these dose optimization techniques: automated exposure control; mA and/or kV adjustment per patient size (includes targeted exams where dose is matched to clinical indication); or iterative reconstruction. Contrast material: OMNI 350; Contrast volume: 100 ml; Contrast route: INTRAVENOUS (IV); REPORTING DATA: Count of CT and Cardiac NM exams in prior 12 months: This patient has received 5 known CTs and 0 known cardiac nuclear medicine studies in the 12 months prior to the current study. COMPARISON: CT abdomen pelvis w con* [id number] 08/24/2022 12:08 PM RADIATION DOSE METRICS: Total DLP (mGy-cm): 550.05 FINDINGS: Lungs: The lung bases are clear. Liver: Normal. No mass. Gallbladder and bile ducts: Normal. No calcified stones. No ductal dilation. Pancreas: Normal. No ductal dilation. Spleen: Incidental splenule near the spleen. Adrenal glands: Normal. No mass. Kidneys and ureters: Normal. No hydronephrosis. Stomach and bowel: No visible colonic diverticula. No wall thickening or ileus. Appendix: No evidence of appendicitis. Intraperitoneal space: No free fluid, free air or abscess. Vasculature: Scattered calcified plaques in the aorta and iliac arteries. Lymph nodes: Unremarkable. No enlarged lymph nodes. Urinary bladder: Unremarkable as visualized. Reproductive: Unremarkable as visualized. Bones/joints: Chronic convex right thoracolumbar scoliosis. Multilevel chronic lumbar degenerative changes. Chronic healed fractures of the right pubic rami and right sacral ala. Soft tissues: Unremarkable. CT/CT abdomen pelvis w con* [id number] IMPRESSION: 1. No acute abdominal or pelvic findings. 2. Chronic and incidental findings as described
[2022-12-11 22:26] VITALS: BP 135/77; PULSE 82; RESP 16; TEMP 36.7; O2SAT 100; BMI 25.0
--- NOTE | 2022-12-11 22:26 | ECG_ITS ---
[facility] Test Date: 2022-12-11 Pat Name: Gabrielle Li Department: Room: Gender: Female Media Marketing Director: : 1945 Requested By: Gregor Osman Order Number: [id number] Naida MD: Shakeel Dumont M.D. Measurements Intervals [place] Rate: 67 P: 60 ME: 205 QRS: 18 QRSD: 82 T: 66 QT: 391 QTc: 413 Interpretive Statements SINUS RHYTHM MODERATE T-WAVE ABNORMALITY, CONSIDER ANTERIOR ISCHEMIA [-0.1+ mV T-WAVE IN V3/V4] Compared to ECG 08/22/2022 09:51:22 Possible ischemia now present T-wave abnormality still present Electronically Signed On 12-11-2022 23:30:56 CDT by Shakeel Dumont M.D. [email or web address] greenvilleTeaman & Companyclevel[id number]
--- NOTE | 2022-12-11 22:30 | ED_ITS ---
HPI - Abdominal Pain General: Chief Complaint: Abdominal Pain Stated Complaint: abd and back pain Time Seen by Provider: 12/11/22 22:23 History of Present Illness: 77-year-old female comes in today with complaints of mid abdominal pain radiating around to the right flank. Pain started this afternoon and has worsened throughout the evening. Patient last meal was at 1800. Patient appears nontoxic. Patient appears in moderate to severe pain. Patient reports history of diverticulitis and chronic back pain. Patient denies history of renal stones. Patient has had no abdominal surgeries. Review of the medical record noted patient had a diverticulitis in August 2022 with perforation. Patient's routine medications are related to her chronic back pain and hypothyroidism. Patient had been on blood pressure medication in the past but now runs low blood pressure usually. Associated Symptoms: Reports nausea; Denies constipation, diarrhea, fever(s) and vomiting Review of Systems General: Reports: 10 or more systems reviewed and unremarkable except in HPI and below Const: Denies: fever(s) Card: Denies: chest pain Resp: Denies: dyspnea GI: Reports: abdominal pain and nausea; Denies: vomiting, diarrhea or constipation : Reports: flank pain; Denies: difficulty voiding Musc: Denies: neck pain or back pain Skin/Breast: Denies: rash Neuro: Denies: headache(s) PFSH ED PFSH: Medical History (Updated 12/12/22 @ 00:48 by MYRTLE Galvan) Abdominal pain Lumbar radiculopathy Lung nodule Needs follow-up CT chest yearly for 5 years. Macrocytosis Orthostatic hypotension Osteoporosis DO NOT REMOVE, LINKED TO TX PLAN Pneumonia Scoliosis TIA (transient ischemic attack) Surgical History History of tibial fracture 2019 - 3 fractures in tibial plateau [facility] Social History Smoking and tobacco/nicotine status: never used tobacco/nicotine Alcohol intake: never Substance/Drug Use: never Marital status: Physical Exam Const: COMMON NORMALS: alert HENMT: COMMON NORMALS: normocephalic HEAD & SCALP: normocephalic MOUTH: Normal oral and palatal mucosa present Neck/C-Spine: COMMON NORMALS: full ROM Chest: COMMONS NORMALS: normal inspection of the chest Resp: COMMON NORMALS: normal respiratory effort and clear to auscultation bilaterally AUSCULTATION: clear to auscultation bilaterally Cardio: COMMON NORMALS: regular rate and regular rhythm RATE: regular rate RHYTHM: regular rhythm GI: COMMON NORMALS: Soft to palpation AUSCULTATION: Yes normoactive bowel sounds PALPATION: Yes Soft to palpation and Yes Tenderness to palpation present (GI) (Periumbilical right lower quadrant) : BLADDER/KIDNEY EXAM: Yes CVA tenderness on the right Back/Pelvis: GENERAL BACK: Yes CVA tenderness THORACIC SPINE/UPPER BACK: No thoracic spinal tenderness LUMBAR SPINE/LOWER BACK: Yes lumbar spinal tende rness Lumbar spinal tenderness location: L2 Extremity: COMMON NORMALS: normal to inspection and no pedal edema Neuro: SENSORIUM/ORIENTATION: Yes alert Skin: COMMON NORMALS: turgor normal GENERAL SKIN EXAM: turgor normal Course Vital Signs: Vital signs: Vital Signs Temperature 98.0 F 12/11/22 22:26 Pulse Rate 82 12/11/22 22:26 Respiratory Rate 16 12/11/22 22:26 Blood Pressure 135/77 12/11/22 22:26 Pulse Oximetry 100 12/11/22 22:26 Oxygen Delivery Me thod Room Air 12/11/22 22:26 MDM - Abdominal Pain Medical Decision Making 77[facility] of right lower abdominal pain radiating to the right flank. On exam abdomen soft with tenderness in the periumbilical and right lower quadrant of the abdomen. Patient has positive CVA tenderness on the right side. Patient moves extremities well. Vital signs are normal. Differential diagnosis includes but not limited to pyelonephritis, renal calculi, appendicitis, gallbladder disease, gastroenteritis, diverticulitis, ACS. CT scan showed no acute abnormalities. CBC was normal. CMP was unremarkable with some mild hyponatremia at 130. Urinalysis showed no signs of infection. Patient had improvement of pain after medication and fluids. I believe patient probably having exacerbation of her chronic back pain which was treated with the medication she will continue with routine care and follow-up as needed. Patient stated understanding. Lab Data 12/11/22 22:47 12/11/22 22:47 Labs/Radiology: Radiology Impressions Abdomen/Pelvis CT 12/11/22 22:25 IMPRESSION: 1. No acute abdominal or pelvic findings. 2. Chronic and incidental findings as described Laboratory Results WBC 5.59 10^3/uL (3.29-11.43) 12/11/22 22:47 RBC 3.89 10^6/uL (3.85-5.65) 12/11/22 22:47 Hgb 12.50 g/dL (11.27-16.99) 12/11/22 22:47 Hct 37.5 % (36-47) 12/11/22 22:47 MCV 96.4 fl (85-98) 12/11/22 22:47 MCH 32.1 pg (27-33) 12/11/22 22:47 MCHC 33.3 g/dL (30-55) 12/11/22 22:47 RDW 12.8 % (12.1-15.1) 12/11/22 22:47 Plt Count 247 10^3/cmm (157-399) 12/11/22 22:47 MPV 9.5 fL (7.4-10.4) 12/11/22 22:47 Neut % (Auto) 67.4 % 12/11/22 22:47 Lymph % (Auto) 21.5 % 12/11/22 22:47 Dane % (Auto) 9.1 % 12/11/22 22:47 Eos % (Auto) 1.1 % 12/11/22 22:47 Baso % (Auto) 0.4 % 12/11/22 22:47 Neut # (Auto) 3.77 10^3/uL (1.8-7.7) 12/11/22 22:47 Lymph # (Auto) 1.2 10^3/uL (0.8-4.8) 12/11/22 22:47 Dane # (Auto) 0.5 10^3/uL (0.2-0.9) 12/11/22 22:47 Eos # (Auto) 0.1 10^3/uL (0.0-0.8) 12/11/22 22:47 Baso # (Auto) 0.0 10^3/uL (0.0-0.1) 12/11/22 22:47 Nucleated RBC % (auto) 0 % 12/11/22 22:47 Nucleated RBCs # 0.0 /100WBC 12/11/22 22:47 Sodium 130 mmol/L (136-145) L 12/11/22 22:47 Potassium 3.8 mmol/L (3.5-5.1) 12/11/22 22:47 Chloride 95 mmol/L (98-107) L 12/11/22 22:47 Carbon Dioxide 23 mmol/L (22-29) 12/11/22 22:47 Anion Gap 15.8 (5-19) 12/11/22 22:47 BUN 12 mg/dL (8-23) 12/11/22 22:47 Creatinine 0.9 mg/dL (0.5-0.9) 12/11/22 22:47 GFR Calculation Not Reportable 12/11/22 22:47 Glucose 124 mg/dL (65-115) H 12/11/22 22:47 Calculated Osmolality 271 mOsm/kg (285-295) L 12/11/22 22:47 Calcium 9.6 mg/dL (8.5-10.5) 12/11/22 22:47 Total Bilirubin 0.5 mg/dL (0.15-1.2) 12/11/22 22:47 AST 19 U/L (0-32) 12/11/22 22:47 ALT 15 U/L (0-33) 12/11/22 22:47 Alkaline Phosphatase 69 U/L (35-105) 12/11/22 22:47 Troponin T Baseline 9 ng/L (0-10) 12/11/22 22:47 Total Protein 6.7 g/dL (6.6-8.7) 12/11/22 22:47 Albumin 4.6 g/dL (3.5-5.2) 12/11/22 22:47 Globulin 2.1 g/dL (1.3-4.6) 12/11/22 22:47 Lipase 25 U/L (13-60) 12/11/22 22:47 Urine Color Light yellow (Yellow) 12/12/22 00:15 Urine Appearance Clear (CLEAR) 12/12/22 00:15 Urine pH 7 (5-7) 12/12/22 00:15 Ur Specific [place] 1.005 (1.005-1.030) 12/12/22 00:15 Urine Protein Neg (Negative) 12/12/22 00:15 Urine Glucose (UA) Norm (Normal) 12/12/22 00:15 Urine Ketones Negative (Negative) 12/12/22 00:15 Urine Blood Neg (Negative) 12/12/22 00:15 Urine Nitrate Negative (Negative) 12/12/22 00:15 Urine Bilirubin Neg (Negative) 12/12/22 00:15 Urine Urobilinogen Neg mg/dL (Negative) 12/12/22 00:15 Ur Leukocyte Esterase Negative (Negative) 12/12/22 00:15 All radiology interpretation(s) finalized by discharge EKG Data EKG 1: EKG interpretation date: 12/11/22 EKG interpretation time: 23:00 Prior EKG tracings: not available for review Interpretation: EKG shows a sinus rhythm with no ST elevation, no ectopy, no prior exam available for comparison. Regular rate at 67 bpm noted. Computer generated interpretation: Sinus rhythm, moderate T wave abnormality, consider anterior ischemia, abnormal EKG, unconfirmed report. Discharge Plan Discharge Patient Disposition: Home Clinical Impression: Back pain Qualifiers: Back pain location: low back pain Chronicity: unspecified Back pain laterality: right Sciatica presence: unspecified whether sciatica present Qualified Code(s): M54.50 - Low back pain, unspecified Condition: Stable Prescriptions: No Action ondansetron 4 mg tablet,disintegrating 4 mg PO Q6H PRN (Reason: nausea and vomiting) Qty: 14 0RF gabapentin 300 mg capsule 300 mg PO TID Qty: 270 2RF clopidogrel 75 mg tablet See Rx Instructions .ROUTE .COMPLEX Qty: 30 6RF Dose Instruction: Take 1 tablet by mouth once daily Rx Instructions: Take 1 tablet by mouth once daily amlodipine 10 mg tablet 10 mg PO DAILY Qty: 90 3RF hydrocodone-acetaminophen 10-325 mg tablet 1 tab PO Q6H PRN (Reason: Pain) 30 Days Qty: 120 0RF midodrine 5 mg Tablet 5 mg PO TID PRN (Reason: LOW BLOOD PRESSURE) Prolia 60 mg/mL Syringe See Rx Instructions .ROUTE .COMPLEX Rx Instructions: 60 mg subcutaneously EVERY SIX MONTHS Calcium 600 600 mg calcium (1,500 mg) Tablet 600 mg PO BEDTIME Salt Tabs 5 mg PO BID dicyclomine 20 mg tablet 20 mg PO QID PRN (Reason: Cramps) levothyroxine 125 mcg tablet 125 mcg PO BEDTIME rosuvastatin 10 mg tablet 10 mg PO BEDTIME duloxetine 60 mg capsule,delayed release(DR/EC) 60 mg PO BEDTIME hydralazine 10 mg Tablet 10 mg PO TID Qty: 90 0RF lisinopril 20 mg Tablet 20 mg PO DAILY Qty: 60 0RF Discharge Orders: Discharge ED (Routine); Ordered 12/12/22 Ordered By: Gregor Dela Cruz Referrals: Andrea Gaona MD [Primary Care Provider] - Discharge Diet: Usual diet Discharge Activity: Increase activity as tolerated Patient Instructions: Opioid Safety, Pain Management Activity Restrictions/Additional Instructions: Home and rest. Activity as tolerated. Follow-up with primary care for further instructions. Return to ER for worsening symptoms such as fever greater than 100.4, persistent vomiting, blood in vomit or stool. Coding Level of Care Code ED Dough Molder for Joel Harden
[2022-12-11 22:51] LABS: Basophils % 0.4 %; Eosinophils # 0.1 10^3/uL (0.0-0.8); Eosinophils % 1.1 %; Hematocrit 37.5 % (36-47); Lymphocytes # 1.2 10^3/uL (0.8-4.8); Lymphocytes % 21.5 %; Mean Corpuscular HGB Conc 33.3 g/dL (30-55); Mean Corpuscular Hemoglobin 32.1 pg (27-33); Mean Corpuscular Volume 96.4 fl (85-98); Mean Platelet Volume 9.5 fL (7.4-10.4); Monocytes # 0.5 10^3/uL (0.2-0.9); Monocytes % 9.1 %; Neutrophils # 3.77 10^3/uL (1.8-7.7); Neutrophils % 67.4 %; Nucleated Red Blood Cells % 0 %; Platelet Count 247 10^3/cmm (157-399); Red Blood Count 3.89 10^6/uL (3.85-5.65); Red Cell Distribution Width 12.8 % (12.1-15.1); White Blood Count 5.59 10^3/uL (3.29-11.43)
[2022-12-11 23:13] LABS: Troponin(5th) Baseline 9 ng/L (0-10)
[2022-12-11 23:14] LABS: Alanine Aminotransferase 15 U/L (0-33); Albumin Level 4.6 g/dL (3.5-5.2); Alkaline Phosphatase 69 U/L (35-105); Anion Gap 15.8 (5-19); Aspartate Amino Transferase 19 U/L (0-32); Blood Urea Nitrogen 12 mg/dL (8-23); Calcium 9.6 mg/dL (8.5-10.5); Carbon Dioxide 23 mmol/L (22-29); Chloride 95 mmol/L (98-107); Globulin 2.1 g/dL (1.3-4.6); Glucose 124 mg/dL (65-115); Lipase 25 U/L (13-60); Osmolality Calculated 271 mOsm/kg (285-295); Potassium 3.8 mmol/L (3.5-5.1); Sodium 130 mmol/L (136-145); Total Bilirubin 0.5 mg/dL (0.15-1.2); Total Protein 6.7 g/dL (6.6-8.7)
[2022-12-11] MEDS: ondansetron 2 mg/ML SDV 2 mL 4 MG IVP (23:32)
[2022-12-11] MEDS: sodium chloride 0.9% 500 ML 999 ML IV (23:32)
[2022-12-11] MEDS: fentaNYL 50 mcg/mL INJ 2mL IVP (23:32)
[2022-12-11 23:45] VITALS: BP 183/90; PULSE 79; O2SAT 89
[2022-12-11] MEDS: iohexol 350 mg/mL 500 mL Btl (per mL) IV (23:52)
[2022-12-12 00:40] LABS: Add Urine Microscopic? NO; Charge for UA Resulting for Rev
[2022-12-12 00:44] LABS: Bilirubin Urine Neg (Negative); Blood Urine Neg (Negative); Glucose Urine UA Norm (Normal); Ketones Urine Negative (Negative); Nitrate Urine Negative (Negative); Protein Urine Neg (Negative); Specific Gravity, Urine 1.005 (1.005-1.030); Urine Appearance Clear (CLEAR); Urine Color Light yellow (Yellow); Urobilinogen Urine Neg (Negative); pH Urine 7 (5-7)
[2022-12-12 00:45] LABS: Leukocyte Esterase Urine Negative (Negative)
[2022-12-12 01:11] VITALS: BP 170/108; PULSE 67; O2SAT 92
[2022-12-12 01:12] VITALS: BP 170/108; PULSE 79; O2SAT 96
== END 2022-12-12 01:18 | disposition home or self-care (01) ==
PROVIDERS: Emergency Provider Nurse Practitioner Family; PCP Family Medicine
DX: M54.50 Low back pain, unspecified (principal); Z79.02 Long term (current) use of antithrombotics/antiplatelets; Z86.73 Personal history of transient ischemic attack (TIA), and cerebral infarction without residual deficits
CPT/HCPCS: 36415; 74177; 80053; 81003; 83690; 84484; 85025; 93005; 96374; 96375; 99285; J2405; J3010; J7040; Q9967

== ENCOUNTER → 2023-04-19 08:14 | Outpatient (BNVA) | payer MEDICARE, OTHER, SELFPAY | PROVIDERS: PCP Family Medicine; Visit Provider Family Medicine | DX: E55.9 Vitamin D deficiency, unspecified (principal); M79.10 Myalgia, unspecified site; I95.1 Orthostatic hypotension; Z51.81 Encounter for therapeutic drug level monitoring; E03.9 Hypothyroidism, unspecified; E53.8 Deficiency of other specified B group vitamins | CPT/HCPCS: 80053; 82306; 82533; 82607; 83735; 84439; 84443; 84481; 85025 ==

== ENCOUNTER 2023-04-20 15:51 | Outpatient (CLI) | payer MEDICARE, OTHER, SELFPAY | END 2023-04-20 15:52 | disposition home or self-care (01) | LOC: LAB 15:52 | PROVIDERS: PCP Family Medicine; Visit Provider Family Medicine | DX: R19.5 Other fecal abnormalities (principal) | CPT/HCPCS: 82274 ==

== ENCOUNTER 2023-05-30 12:40 | Oncology outpatient (recurring) (ONCR) | payer MEDICARE, OTHER, SELFPAY ==
[2023-05-30] MEDS: denosumab 60 mg SDV SUBCUT (13:08)
[2023-05-30 13:12] VITALS: BP 147/84; PULSE 59; RESP 16; TEMP 36.4; O2SAT 96
[2023-05-30 14:55] LABS: Calcium 9.5 mg/dL (8.5-10.5)
== END 2023-06-12 23:59 | disposition home or self-care (01) ==
PROVIDERS: PCP Family Medicine; Visit Provider Nurse Practitioner
DX: M81.0 Age-related osteoporosis without current pathological fracture (principal)
CPT/HCPCS: 82310; 96372; 96402; J0897

== ENCOUNTER 2023-06-12 12:48 | Outpatient (CLI) | payer MEDICARE, OTHER, SELFPAY ==
--- NOTE | 2023-06-12 13:01 | MM_ITS ---
WS: [id number] BILATERAL SCREENING DIGITAL TOMOSYNTHESIS MAMMOGRAM WITH CAD HISTORY: SCREENING COMPARISON: 06/02/2022, 05/26/2021 and 03/02/2020 Bilateral CC and MLO views with tomosynthesis and synthetic mammography submitted. Computer aided det ection analyzed. Breast composition: There are scattered areas of fibroglandular density. No suspicious masses, microc alcifications or architectural distortion. Lobulated 8 mm mass in the upper outer quadrant of the RIG HT breast is stable. Stable benign arterial and round calcifications. MM/[place] [id number] IMPRESSION: BI-RADS: 2-Benign FOLLOW UP: 1 Year Follow-up
== END 2023-06-12 12:49 | disposition home or self-care (01) ==
PROVIDERS: PCP Family Medicine; Visit Provider Family Medicine
DX: Z12.31 Encounter for screening mammogram for malignant neoplasm of breast (principal); R92.323 Mammographic fibroglandular density, bilateral breasts
CPT/HCPCS: 77063; 77067

== ENCOUNTER 2023-06-15 14:05 | Outpatient (CLI) | payer MEDICARE, OTHER, SELFPAY | END 2023-06-15 14:06 | disposition home or self-care (01) | LOC: LAB 14:07 | PROVIDERS: PCP Family Medicine; Visit Provider Internal Medicine Gastroenterology | DX: A04.8 Other specified bacterial intestinal infections (principal) | CPT/HCPCS: 87338 ==

== ENCOUNTER 2023-09-12 12:30 | Oncology outpatient (recurring) (ONCR) | payer MEDICARE, OTHER, SELFPAY ==
--- NOTE | 2023-09-12 12:30 | CTR_ITS ---
PROCEDURE INFORMATION: Exam: CT Chest Without Contrast; Diagnostic Exam date and time: 09/12/2023 12:25 PM Age: 78 years old Clinical indication: Condition or disease; Lung condition and disease; Pulmonary nodule, solitary; Additional info: Lung nodule follow up TECHNIQUE: Imaging protocol: Diagnostic computed tomography of the chest without contrast. Radiation optimization: All CT scans at this facility use at least one of these dose optimization techniques: automated exposure control; mA and/or kV adjustment per patient size (includes targeted exams where dose is matched to clinical indication); or iterative reconstruction. COMPARISON: CT chest wo con [id number] 03/30/2022 2:49 PM RADIATION DOSE METRICS: Total DLP (mGy-cm): 304.02 FINDINGS: Lungs: Unremarkable. No consolidation. No masses. Pleural spaces: The 10 mm nodule deep within the left posterior costophrenic sulcus seen on an abdominal CT from 08/24/2022 is not visible on today study. Heart: Unremarkable. No cardiomegaly. No pericardial effusion. Lymph nodes: Unremarkable. No enlarged lymph nodes. Vasculature: Unremarkable. No aortic aneurysm. Bones/joints: Unremarkable. No acute fracture. Soft tissues: Unremarkable. CT/CT chest wo con [id number] IMPRESSION: The findings are normal. The previous 10 mm nodule is no longer present.
== END 2023-09-12 23:59 | disposition home or self-care (01) ==
LOC: RAD 15:18 → ONCMED 09-27 11:46
PROVIDERS: PCP Family Medicine; Visit Provider Family Medicine
DX: R91.1 Solitary pulmonary nodule (principal)
CPT/HCPCS: 71250

== ENCOUNTER → 2023-10-03 13:34 | Outpatient (BNVA) | payer MEDICARE, OTHER, SELFPAY | PROVIDERS: PCP Family Medicine; Visit Provider Family Medicine | DX: G45.9 Transient cerebral ischemic attack, unspecified (principal); Z51.81 Encounter for therapeutic drug level monitoring; R30.0 Dysuria | CPT/HCPCS: 80053; 85025; 85651; 87086 ==

== ENCOUNTER 2023-10-30 17:38 | Inpatient (IN) | payer MEDICARE, OTHER, SELFPAY ==
[2023-10-30] VITALS (11 sets, daily range): BP systolic 157–223; BP diastolic 88–111; PULSE 58–111; RESP 15–20; TEMP 36.7; O2SAT 94–98; BMI 23.0
--- NOTE | 2023-10-30 17:45 | XRR_ITS ---
PROCEDURE INFORMATION: Exam: XR Chest Exam date and time: 10/30/2023 6:00 PM Age: 78 years old Clinical indication: Other: Weakness TECHNIQUE: Imaging protocol: Radiologic exam of the chest. Views: 1 view. COMPARISON: CT chest [facility] [id number] 09/12/2023 12:25 PM FINDINGS: Lungs: Unremarkable. No consolidation. Pleural spaces: Unremarkable. No pleural effusion. No pneumothorax. Heart/Mediastinum: Unremarkable. No cardiomegaly. Vasculature: Atherosclerotic aortic calcifications. Bones/joints: Unremarkable. XR/XR chest 1V portable [id number] IMPRESSION: No acute cardiopulmonary findings.
--- NOTE | 2023-10-30 17:45 | ECG_ITS ---
[facility] Test Date: 2023-10-30 Pat Name: Gabrielle Li Department: Room: Gender: Female [employer]: : 1945 Requested By: Julianna Ascencio Order Number: [id number] Pascal MD: Shakeel Dumont M.D. Measurements Intervals [place] Rate: 73 P: 75 MO: 201 QRS: 54 QRSD: 85 T: 68 QT: 403 QTc: 447 Interpretive Statements SINUS RHYTHM WITH OCCASIONAL SUPRAVENTRICULAR PREMATURE COMPLEXES MODERATE ST DEPRESSION [0.05+ mV ST DEPRESSION] Compared to ECG 12/11/2022 22:52:24 ST (T wave) deviation now present T-wave abnormality no longer present Possible ischemia no longer present Electronically Signed On 10-31-2023 8:21:48 CDT by Shakeel Dumont M.D. [id number]
--- NOTE | 2023-10-30 17:45 | CTR_ITS ---
PROCEDURE INFORMATION: Exam: CT Head Without Contrast Exam date and time: 10/30/2023 5:46 PM Age: 78 years old Clinical indication: Stroke-like symptoms; Speech disturbance; Additional info: Possible stroke TECHNIQUE: Imaging protocol: Computed tomography of the head without contrast. Radiation optimization: All CT scans at this facility use at least one of these dose optimization techniques: automated exposure control; mA and/or kV adjustment per patient size (includes targeted exams where dose is matched to clinical indication); or iterative reconstruction. Other technique: STROKE PROTOCOL was implemented. COMPARISON: CT head wo con* [id number] 06/09/2022 1:08 PM RADIATION DOSE METRICS: Total DLP (mGy-cm): 1818 FINDINGS: Brain: Possible hypodensity within the left chuck, though this may be artifactual (for example on series 20 image 23. Mild generalized cortical volume loss. Periventricular and subcortical white matter hypodensities likely represent chronic small vessel ischemic changes. No intracranial hemorrhage or discrete extra-axial fluid collection. Small hyperdense foci along the proximal aspects of bilateral middle cerebral arteries are similar to prior and are likely related to atherosclerotic changes. Cerebral ventricles: No ventriculomegaly. Paranasal sinuses: Visualized sinuses are unremarkable. No fluid levels. Mastoid air cells: Visualized mastoid air cells are well aerated. Bones: Unremarkable. No acute fracture. Soft tissues: Unremarkable. CT/CT head wo con* [id number] IMPRESSION: Possible hypodense focus in the left chuck. Recommend MRI brain without contrast for further assessment.
--- NOTE | 2023-10-30 17:46 | ED_ITS ---
Documented by User: Julianna Mcdonald MD 10/30/23 17:52 HPI - Neuro Symptoms/Deficit 2 General: Chief Complaint: Neuro Symptoms/Deficit Stated Complaint: stroke symptoms Time Seen by Provider: 10/30/23 17:46 History of Present Illness: 78-year-old female with history of hypot hyroidism, chronic pain syndrome TIAs in the past on Plavix who presents the emergency room with aphasia. This apparently started about 30 minutes previous. She moves all extremities. She is very tearful and cannot speak. No other history able to be obtained at this time. Related Data Home Medications Medication Instructions Recorded Confirmed denosumab 60 mg/mL subcutaneous See Rx Instructions .Route .COMPLEX 04/07/20 10/21/23 syringe (Prolia) Salt Tabs 5 mg PO BID 08/22/22 10/21/23 calcium carbonate (Calcium 600) 600 mg PO BEDTIME 08/22/22 10/21/23 dicyclomine 20 mg tablet 20 mg PO QID PRN Cramps 08/22/22 10/21/23 Previous Rx's Medication Instructions Recorded levothyroxine 125 mcg tablet See Rx Instructions .Route 12/22/22 .COMPLEX #90 tabs rosuvastatin 10 mg tablet See Rx Instructions .Route 12/22/22 .COMPLEX #90 tabs gabapentin 300 mg capsule 300 mg PO TID #270 caps 03/19/23 midodrine 5 mg tablet 5 mg PO TID PRN LOW BLOOD PRESSURE 05/02/23 #90 tabs clopidogrel 75 mg tablet See Rx Instructions .Route 05/25/23 .COMPLEX #30 tabs duloxetine 60 mg capsule,delayed 60 mg PO BEDTIME #90 caps 08/17/23 release hydrocodone 10 mg-acetaminophen 1 tab PO Q6H PRN Pain 30 days #120 10/30/23 325 mg tablet tabs Allergies Allergy/AdvReac Type Severity Reaction Status Date / Time No Known Allergies Allergy Verified 04/02/23 13:29 Review of Systems 2 General: Reports: ROS unobtainable due to medical condition and ROS unobtainable due to mental status PFSH ED 2 PFSH: Medical History (Updated 10/30/23 @ 20:28 by Benigno Alvares DO) TIA (transient ischemic attack) Orthostatic hypotension Osteoporosis DO NOT REMOVE, LINKED TO TX PLAN Lung nodule Needs follow-up CT chest yearly for 5 years. Lumbar radiculopathy Scoliosis Macrocytosis Abdominal pain Pneumonia Surgical History History of tibial fracture 2019 - 3 fractures in tibial plateau - [place] Family History Family/Other Alzheimer's dementia Social History Smoking and tobacco/nicotine status: never used tobacco/nicotine Alcohol intake: never Substance/Drug Use: never Marital status: Physical Exam 2 Narrative: EXAM NARRATIVE: General: Alert, no acute distress. Skin: Warm, dry. Head: Normocephalic, atraumatic. Neck: Supple, trachea midline. Eye: Extraocular movements are intact. Ears, nose, mouth and throat: mucosa moist. Cardiovascular: Regular, Normal peripheral perfusion. Respiratory: Lungs are clear to auscultation, respirations are non-labored, breath sounds are equal, Symmetrical chest wall expansion. Gastrointestinal: Soft, Nontender, Non distended Musculoskeletal: Normal ROM, no deformity. Neurological: Patient is alert, tearful, aphasic. No other obvious deficits. No facial droop. She moves all extremities. She is able to transfer from wheelchair to the bed. Psychiatric: Unable to assess other than the patient is very tearful. Course 2 Vital Signs: Vital signs: Vital Signs Temperature 98.0 F 10/30/23 17:45 Pulse Rate 102 H 10/30/23 18:58 Respiratory Rate 18 10/30/23 18:58 Blood Pressure 223/103 10/30/23 18:58 Pulse Oximetry 96 10/30/23 18:58 Oxygen Delivery Me thod Room Air 10/30/23 18:37 MDM - Neuro Symptoms/Deficit Medical Decision Making Medical decision making: Differential diagnosis for patient with focal neurologic deficit(s) includes but not limited to and based on the above HPI, review of systems and physical exam: ischemic stroke, hemorrhagic stroke and embolic stroke secondary to atrial fibrillation), TIA, Mayers's palsey, metabolic encephalopathy with previous stroke. Consultation: I spoke with Dr. Charles who is on-call for neurology. He is going to see the patient. If the head CT is negative this seems to be a true stroke and he would recommend tPA at that point. Patient care transitioned to Dr. Alvares at shift change. Lab Data 10/30/23 17:55 10/30/23 17:55 Radiology Impressions Chest X-Ray 10/30/23 17:45 IMPRESSION: No acute cardiopulmonary findings. Head CT 10/30/23 17:45 IMPRESSION: Possible hypodense focus in the left chuck. Recommend MRI brain without contrast for further assessment. ADDENDUM: 10/30/23 [id number] THIS REPORT CONTAINS FINDINGS THAT MAY BE CRITICAL TO PATIENT CARE. The findings were verbally communicated via telephone conference with DR. ROSSI at 6:21 PM CDT on 10/30/2023. The findings were acknowledged and understood. Head/Neck CTA 10/30/23 17:55 IMPRESSION: No large vessel stenosis or occlusion. IMPRESSION: No hemodynamically significant stenosis within the arteries of the neck. REFERENCES: NASCET CRITERIA. The degree of stenosis in the cervical segment of the internal carotid artery is based on NASCET criteria. Normal is no stenosis. Mild is less than 50% stenosis. Moderate is 50-69% stenosis. Severe is 70% to 99% stenosis. Total occlusion is no detectable patent lumen. THIS REPORT CONTAINS FINDINGS THAT MAY BE CRITICAL TO PATIENT CARE. The findings were verbally communicated via telephone conference with DR. ROSSI at 6:21 PM CDT on 10/30/2023. The findings were acknowledged and understood. Laboratory Results WBC 7.15 10^3/uL (3.29-11.43) 10/30/23 17:55 RBC 3.98 10^6/uL (3.85-5.65) 10/30/23 17:55 Hgb 12.80 g/dL (11.27-16.99) 10/30/23 17:55 Hct 39.1 % (36-47) 10/30/23 17:55 MCV 98.2 fl (85-98) H 10/30/23 17:55 MCH 32.2 pg (27-33) 10/30/23 17:55 MCHC 32.7 g/dL (30-55) 10/30/23 17:55 RDW 13.2 % (12.1-15.1) 10/30/23 17:55 Plt Count 237 10^3/cmm (157-399) 10/30/23 17:55 MPV 10.3 fL (7.4-10.4) 10/30/23 17:55 Neut % (Auto) 67.2 % 10/30/23 17:55 Lymph % (Auto) 21.3 % 10/30/23 17:55 Andrew % (Auto) 8.5 % 10/30/23 17:55 Eos % (Auto) 0.4 % 10/30/23 17:55 Baso % (Auto) 0.4 % 10/30/23 17:55 Neut # (Auto) 4.80 10^3/uL (1.8-7.7) 10/30/23 17:55 Lymph # (Auto) 1.5 10^3/uL (0.8-4.8) 10/30/23 17:55 Andrew # (Auto) 0.6 10^3/uL (0.2-0.9) 10/30/23 17:55 Eos # (Auto) 0.0 10^3/uL (0.0-0.8) 10/30/23 17:55 Baso # (Auto) 0.0 10^3/uL (0.0-0.1) 10/30/23 17:55 Nucleated RBC % (auto) 0 % 10/30/23 17: Nucleated RBCs # 0.0 /100WBC 10/30/23 17:55 PT 13.00 SECONDS (12.1-14.9) 10/30/23 17:55 INR 0.95 (0.8-1.2) 10/30/23 17:55 APTT 29.5 SECONDS (23.9-36.7) 10/30/23 17:55 Sodium 137 mmol/L (136-145) 10/30/23 17:55 Potassium 3.6 mmol/L (3.5-5.1) 10/30/23 17:55 Chloride 98 mmol/L (98-107) 10/30/23 17:55 Carbon Dioxide 24 mmol/L (22-29) 10/30/23 17:55 Anion Gap 18.6 (5-19) 10/30/23 17:55 BUN 13 mg/dL (8-23) 10/30/23 17:55 Creatinine 0.9 mg/dL (0.5-0.9) 10/30/23 17:55 GFR Calculation Not Reportable 10/30/23 17:55 Glucose 129 mg/dL (65-115) H 10/30/23 17:55 POC Glucose 122 mg/dL (70-110) H 10/30/23 17:45 Calculated Osmolality 286 mOsm/kg (285-295) 10/30/23 17:55 Calcium 8.9 mg/dL (8.5-10.5) 10/30/23 17:55 Total Bilirubin 0.4 mg/dL (0.15-1.2) 10/30/23 17:55 AST 16 U/L (0-32) 10/30/23 17:55 ALT 11 U/L (0-33) 10/30/23 17:55 Alkaline Phosphatase 80 U/L (35-105) 10/30/23 17:55 Troponin T Baseline 10 ng/L (0-10) 10/30/23 17:55 Troponin T 120 Minute 11.08 ng/L (0-10) H 10/30/23 19:52 Delta Troponin T 1.08 ABS# (0-10) 10/30/23 19:52 Total Protein 6.6 g/dL (6.6-8.7) 10/30/23 17:55 Albumin 4.1 g/dL (3.5-5.2) 10/30/23 17:55 Globulin 2.5 g/dL (1.3-4.6) 10/30/23 17:55 Discharge Plan Discharge Patient Disposition: Admitted As Inpatient Admit Provider: Tera Araujo Clinical Impression: TIA (transient ischemic attack) Condition: Stable Coding Level of Care Code ED Utilities Estimator And Drafter for Chg Fwd Documented by User: Benigno Alvares DO 10/30/23 21:19 HPI - Neuro Symptoms/Deficit 2 General: Chief Complaint: Neuro Symptoms/Deficit Stated Complaint: stroke symptoms Time Seen by Provider: 10/30/23 17:46 Related Data Home Medications Medication Instructions Recorded Confirmed denosumab 60 mg/mL subcutaneous See Rx Instructions .Route .COMPLEX 04/07/20 10/21/23 syringe (Prolia) Salt Tabs 5 mg PO BID 08/22/22 10/21/23 calcium carbonate (Calcium 600) 600 mg PO BEDTIME 08/22/22 10/21/23 dicyclomine 20 mg tablet 20 mg PO QID PRN Cramps 08/22/22 10/21/23 Previous Rx's Medication Instructions Recorded levothyroxine 125 mcg tablet See Rx Instructions .Route 12/22/22 .COMPLEX #90 tabs rosuvastatin 10 mg tablet See Rx Instructions .Route 12/22/22 .COMPLEX #90 tabs gabapentin 300 mg capsule 300 mg PO TID #270 caps 03/19/23 midodrine 5 mg tablet 5 mg PO TID PRN LOW BLOOD PRESSURE 05/02/23 #90 tabs clopidogrel 75 mg tablet See Rx Instructions .Route 05/25/23 .COMPLEX #30 tabs duloxetine 60 mg capsule,delayed 60 mg PO BEDTIME #90 caps 08/17/23 release hydrocodone 10 mg-acetaminophen 1 tab PO Q6H PRN Pain 30 days #120 10/30/23 325 mg tablet tabs Allergies Allergy/AdvReac Type Severity Reaction Status Date / Time No Known Allergies Allergy Verified 04/02/23 13:29 [facility] ED 2 PFS: Medical History (Updated 10/30/23 @ 20:28 by Benigno Alvares DO) TIA (transient ischemic attack) Orthostatic hypotension Osteoporosis DO NOT REMOVE, LINKED TO TX PLAN Lung nodule Needs follow-up CT chest yearly for 5 years. Lumbar radiculopathy Scoliosis Macrocytosis Abdominal pain Pneumonia Surgical History History of tibial fracture 2019 - 3 fractures in tibial plateau - [place] Family History Family/Other Alzheimer's dementia Social History Smoking and tobacco/nicotine status: never used tobacco/nicotine Alcohol intake: never Substance/Drug Use: never Marital status: Course 2 Vital Signs: Vital signs: Vital Signs Temperature 98.0 F 10/30/23 17:45 Pulse Rate 102 H 10/30/23 18:58 Respiratory Rate 18 10/30/23 18:58 Blood Pressure 223/103 10/30/23 18:58 Pulse Oximetry 96 10/30/23 18:58 Oxygen Delivery Me thod Room Air 10/30/23 18:37 MDM - Neuro Symptoms/Deficit Medical Decision Making Medical decision making: Differential diagnosis for patient with focal neurologic deficit(s) includes but not limited to and based on the above HPI, review of systems and physical exam: ischemic stroke, hemorrhagic stroke and embolic stroke secondary to atrial fibrillation), TIA, Mayers's palsey, metabolic encephalopathy with previous stroke. Consultation: I spoke with Dr. Charles who is on-call for neurology. He is going to see the patient. If the head CT is negative this seems to be a true stroke and he would recommend tPA at that point. Patient care transitioned to Dr. Alvares at shift change. Discussed case with Dr. Charles patient patient improved back to her baseline and has an NIH of 0 and he would not give tPA at this point however he was admitted to the hospital for further workup and evaluation. Discussed case with Dr. Araujo will put her on Med[facility] for further evaluation and treatment. Differential Diagnosis Likely transient cerebral ischemia Medical Records I reviewed the patient's medical records. Lab Data I reviewed the patient's lab results. 10/30/23 17:55 10/30/23 17:55 Radiology Impressions Chest X-Ray 10/30/23 17:45 IMPRESSION: No acute cardiopulmonary findings. Head CT 10/30/23 17:45 IMPRESSION: Possible hypodense focus in the left chuck. Recommend MRI brain without contrast for further assessment. ADDENDUM: 10/30/23 1828 THIS REPORT CONTAINS FINDINGS THAT MAY BE CRITICAL TO PATIENT CARE. The findings were verbally communicated via telephone conference with DR. ROSSI at 6:21 PM CDT on 10/30/2023. The findings were acknowledged and understood. Head/Neck CTA 10/30/23 17:55 IMPRESSION: No large vessel stenosis or occlusion. IMPRESSION: No hemodynamically significant stenosis within the arteries of the neck. REFERENCES: NASCET CRITERIA. The degree of stenosis in the cervical segment of the internal carotid artery is based on NASCET criteria. Normal is no stenosis. Mild is less than 50% stenosis. Moderate is 50-69% stenosis. Severe is 70% to 99% stenosis. Total occlusion is no detectable patent lumen. THIS REPORT CONTAINS FINDINGS THAT MAY BE CRITICAL TO PATIENT CARE. The findings were verbally communicated via telephone conference with DR. ROSSI at 6:21 PM CDT on 10/30/2023. The findings were acknowledged and understood. Laboratory Results WBC 7.15 10^3/uL (3.29-11.43) 10/30/23 17:55 RBC 3.98 10^6/uL (3.85-5.65) 10/30/23 17:55 Hgb 12.80 g/dL (11.27-16.99) 10/30/23 17: Hct 39.1 % (36-47) 10/30/23 17: MCV 98.2 fl (85-98) H 10/30/23 17: MCH 32.2 pg (27-33) 10/30/23 17: MCHC 32.7 g/dL (30-55) 10/30/23 17:55 RDW 13.2 % (12.1-15.1) 10/30/23 17:55 Plt Count 237 10^3/cmm (157-399) 10/30/23 17: MPV 10.3 fL (7.4-10.4) 10/30/23 17:55 Neut % (Auto) 67.2 % 10/30/23 17:55 Lymph % (Auto) 21.3 % 10/30/23 17:55 Andrew % (Auto) 8.5 % 10/30/23 17:55 Eos % (Auto) 0.4 % 10/30/23 17:55 Baso % (Auto) 0.4 % 10/30/23 17:55 Neut # (Auto) 4.80 10^3/uL (1.8-7.7) 10/30/23 17:55 Lymph # (Auto) 1.5 10^3/uL (0.8-4.8) 10/30/23 17:55 Andrew # (Auto) 0.6 10^3/uL (0.2-0.9) 10/30/23 17:55 Eos # (Auto) 0.0 10^3/uL (0.0-0.8) 10/30/23 17:55 Baso # (Auto) 0.0 10^3/uL (0.0-0.1) 10/30/23 17:55 Nucleated RBC % (auto) 0 % 10/30/23 17:55 Nucleated RBCs # 0.0 /100WBC 10/30/23 17:55 PT 13.00 SECONDS (12.1-14.9) 10/30/23 17:55 INR 0.95 (0.8-1.2) 10/30/23 17:55 APTT 29.5 SECONDS (23.9-36.7) 10/30/23 17:55 Sodium 137 mmol/L (136-145) 10/30/23 17:55 Potassium 3.6 mmol/L (3.5-5.1) 10/30/23 17:55 Chloride 98 mmol/L (98-107) 10/30/23 17:55 Carbon Dioxide 24 mmol/L (22-29) 10/30/23 17:55 Anion Gap 18.6 (5-19) 10/30/23 17:55 BUN 13 mg/dL (8-23) 10/30/23 17:55 Creatinine 0.9 mg/dL (0.5-0.9) 10/30/23 17:55 GFR Calculation Not Reportable 10/30/23 17:55 Glucose 129 mg/dL (65-115) H 10/30/23 17:55 POC Glucose 122 mg/dL (70-110) H 10/30/23 17:45 Calculated Osmolality 286 mOsm/kg (285-295) 10/30/23 17:55 Calcium 8.9 mg/dL (8.5-10.5) 10/30/23 17:55 Total Bilirubin 0.4 mg/dL (0.15-1.2) 10/30/23 17:55 AST 16 U/L (0-32) 10/30/23 17:55 ALT 11 U/L (0-33) 10/30/23 17:55 Alkaline Phosphatase 80 U/L (35-105) 10/30/23 17:55 Troponin T Baseline 10 ng/L (0-10) 10/30/23 17:55 Troponin T 120 Minute 11.08 ng/L (0-10) H 10/30/23 19:52 Delta Troponin T 1.08 ABS# (0-10) 10/30/23 19:52 Total Protein 6.6 g/dL (6.6-8.7) 10/30/23 17:55 Albumin 4.1 g/dL (3.5-5.2) 10/30/23 17:55 Globulin 2.5 g/dL (1.3-4.6) 10/30/23 17:55 All radiology interpretation(s) finalized by discharge Discharge Plan Discharge Patient Disposition: Admitted As Inpatient Admit Provider: Tera Araujo Clinical Impression: TIA (transient ischemic attack) Condition: Stable Coding Level of Care Code ED Utilities Estimator And Drafter for Joel Harden
--- NOTE | 2023-10-30 17:55 | CTR_ITS ---
PROCEDURE INFORMATION: Exam: CTA Head With Contrast, Arteriography Exam date and time: 10/30/2023 5:54 PM Age: 78 years old Clinical indication: Stroke-like symptoms; Speech disturbance; Additional info: Possible stroke TECHNIQUE: Imaging protocol: Computed tomographic angiography of the head with contrast. Exam focused on the arteries. 3D rendering (Not supervised by radiologist): MIP and/or 3D reconstructed images were created by the technologist. Radiation optimization: All CT scans at this facility use at least one of these dose optimization techniques: automated exposure control; mA and/or kV adjustment per patient size (includes targeted exams where dose is matched to clinical indication); or iterative reconstruction. Contrast material: OMNI 350; Contrast volume: 100 ml; Contrast route: INTRAVENOUS (IV); COMPARISON: CT head wo con* [id number] 10/30/2023 5:46 PM RADIATION DOSE METRICS: Total DLP (mGy-cm): 474 FINDINGS: ANTERIOR CIRCULATION: Right internal carotid artery: Intracranial segment is patent with no significant stenosis. No aneurysm. Mild atherosclerotic calcifications. Right middle cerebral artery: No occlusion or significant stenosis. No aneurysm. Right anterior cerebral artery: No occlusion or significant stenosis. No aneurysm. Left internal carotid artery: Intracranial segment is patent with no significant stenosis. No aneurysm. Mild atherosclerotic calcifications. Left middle cerebral artery: No occlusion or significant stenosis. No aneurysm. Left anterior cerebral artery: No occlusion or significant stenosis. No aneurysm. POSTERIOR CIRCULATION: Right vertebral artery: No occlusion or significant stenosis. No aneurysm. The right vertebral artery predominantly gives rise to the basilar artery. Left vertebral artery: No occlusion. No aneurysm. Very diminutive distal aspect of the intracranial left vertebral artery, contributing a minimal amount of the basilar artery. Basilar artery: No occlusion or significant stenosis. No aneurysm. Right posterior cerebral artery: No occlusion or significant stenosis. No aneurysm. Left posterior cerebral artery: No occlusion or significant stenosis. No aneurysm. Brain: No definite mass, mass effect, or midline shift. Cerebral ventricles: No ventriculomegaly. Bones/joints: Unremarkable. No acute fracture. Soft tissues: Unremarkable. PROCEDURE INFORMATION: Exam: CTA Neck With Contrast Exam date and time: 10/30/2023 5:54 PM Age: 78 years old Clinical indication: Stroke-like symptoms; Speech disturbance; Additional info: Possible stroke TECHNIQUE: Imaging protocol: Computed tomographic angiography of the neck with contrast. Exam focused on the cervical segments of the vasculature. 3D rendering (Not supervised by radiologist): MIP and/or 3D reconstructed images were created by the technologist. Radiation optimization: All CT scans at this facility use at least one of these dose optimization techniques: automated exposure control; mA and/or kV adjustment per patient size (includes targeted exams where dose is matched to clinical indication); or iterative reconstruction. Contrast material: OMNI 350; Contrast volume: 100 ml; Contrast route: INTRAVENOUS (IV); COMPARISON: CT head wo con* [id number] 10/30/2023 5:46 PM RADIATION DOSE METRICS: Total DLP (mGy-cm): 474 FINDINGS: Right common carotid artery: No stenosis. No dissection or occlusion. Right internal carotid artery: No stenosis of the extracranial segment. No dissection or occlusion. Mild atherosclerotic calcifications proximally with less than 50% stenosis by NASCET criteria. Right external carotid artery: No occlusion or stenosis of the origin. Left common carotid artery: No stenosis. No dissection or occlusion. Left internal carotid artery: No stenosis of the extracranial segment. No dissection or occlusion. Mild atherosclerotic calcifications proximally with less than 50% stenosis by NASCET criteria. Left external carotid artery: No occlusion or stenosis of the origin. Right vertebral artery: Dominant right vertebral artery. Left vertebral artery: No stenosis. No dissection or occlusion. Other arteries: Mild atherosclerotic calcifications along the aortic arch. The visualized aorta is nonaneurysmal. Soft tissues: Normal. No significant soft tissue swelling. Bones/joints: No acute fracture. Moderate to advanced degenerative changes of the mid to lower cervical spine. CT/CT angio headneck* [id number] IMPRESSION: No large vessel stenosis or occlusion. IMPRESSION: No hemodynamically significant stenosis within the arteries of the neck. REFERENCES: NASCET CRITERIA. The degree of stenosis in the cervical segment of the internal carotid artery is based on NASCET criteria. Normal is no stenosis. Mild is less than 50% stenosis. Moderate is 50-69% stenosis. Severe is 70% to 99% stenosis. Total occlusion is no detectable patent lumen. THIS REPORT CONTAINS FINDINGS THAT MAY BE CRITICAL TO PATIENT CARE. The findings were verbally communicated via telephone conference with DR. ROSSI at 6:21 PM CDT on 10/30/2023. The findings were acknowledged and understood.
[2023-10-30 18:03] LABS: Glucose Point of Care 122 mg/dL (70-110)
[2023-10-30 18:04] LABS: Basophils % 0.4 %; Eosinophils % 0.4 %; Hematocrit 39.1 % (36-47); Lymphocytes # 1.5 10^3/uL (0.8-4.8); Lymphocytes % 21.3 %; Mean Corpuscular HGB Conc 32.7 g/dL (30-55); Mean Corpuscular Hemoglobin 32.2 pg (27-33); Mean Corpuscular Volume 98.2 fl (85-98); Mean Platelet Volume 10.3 fL (7.4-10.4); Monocytes # 0.6 10^3/uL (0.2-0.9); Monocytes % 8.5 %; Neutrophils % 67.2 %; Nucleated Red Blood Cells % 0 %; Platelet Count 237 10^3/cmm (157-399); Red Blood Count 3.98 10^6/uL (3.85-5.65); Red Cell Distribution Width 13.2 % (12.1-15.1); White Blood Count 7.15 10^3/uL (3.29-11.43)
[2023-10-30] MEDS: iohexol 350 mg/mL 500 mL Btl (per mL) IV (18:07)
[2023-10-30 18:17] LABS: INR 0.95 (0.8-1.2)
[2023-10-30 18:18] LABS: Partial Thromboplastin Time 29.5 SECONDS (23.9-36.7)
--- NOTE | 2023-10-30 18:19 | PM.CONSULT ---
Providers/Reason For Consult Consulting Physician/Specialty*: Camden Charles MD neurology and epilepsy Reason for Consult*: Code stroke/acute care emergency department room #13 Primary Care Provider: Andrea Gaona MD History of Present Illness History of Present Illness Gabrielle Li is a 78 year old female with a history of hypotension treated with salt tablets and midodrine as needed. The patient also has a history of mild cognitive impairment. According to the patient's who was present at the [facility] emergency department room #13, the patient was at home and they were getting ready to have dinner.The patient was brought to [facility] emergency department secondary after the patient was observed to have difficulty speaking witnessed by the and the patient's daughter approximately 20 minutes prior to the code stroke being initiated at 5:44 PM on 10/30/2023. In the emergency room the patient was taken to the CT scanner for stat thrombolytic noncontrast head CT. This study revealed the following: FINDINGS: Brain: Possible hypodensity within the left chuck, though this may be artifactual (for example on series 20 image 23. Mild generalized cortical volume loss. Periventricular and subcortical white matter hypodensities likely represent chronic small vessel ischemic changes. No intracranial hemorrhage or discrete extra-axial fluid collection. Small hyperdense foci along the proximal aspects of bilateral middle cerebral arteries are similar to prior and are likely related to atherosclerotic changes. Cerebral ventricles: No ventriculomegaly. Glucose Accu-Chek 122. NIH score =0 Results of CBC and comprehensive metabolic panel revealed unremarkable CBC. Comprehensive metabolic panel results pending at the time of this dictation. When the patient was brought back to room 13 in the emergency department, patient's condition remained stable. Blood pressure was elevated at 204/121 heart rate 73 O2 saturation 95% on room air. ER physician aware of elevated blood pressure which may require mild intravenous antihypertensive medication if warranted. The ER physician instructed to maintain mean arterial blood pressure between 80-110. CT angiogram of the head and neck also obtained and revealed no large vessel occlusion. Drug allergies None Current medications: Sodium tablets 5 mg tablets 1 p.o. twice daily Midodrine 5 mg p.o. 3 times daily as needed for low blood pressure Synthroid 125 mcg p.o. daily Hydrocodone 10 mg / 325 mg tablet 1 p.o. every 6 hours as needed pain Prolia to use as directed Crestor 10 mg p.o. nightly Cymbalta 60 mg p.o. daily for pain Past medical history: Hypotension treated with salt tablets and midodrine Mild cognitive impairment Questionable history of stroke Hypothyroidism Habits: None Family history: Remarkable for a paternal uncle and aunt with dementia Social history: The patient lives with her Review of Systems General: Reports: 10 or more systems reviewed and unremarkable except in HPI and below Medications/Allergies Home Medications Medication Instructions Recorded Confirmed Last Taken Type denosumab 60 mg/mL subcutaneous See Rx Instructions .Route .COMPLEX 04/07/20 10/21/23 05/24/22 History syringe (Prolia) Salt Tabs 5 mg PO BID 08/22/22 10/21/23 Unknown History calcium carbonate (Calcium 600) 600 mg PO BEDTIME 08/22/22 10/21/23 08/21/22 History dicyclomine 20 mg tablet 20 mg PO QID PRN Cramps 08/22/22 10/21/23 08/22/22 History levothyroxine 125 mcg tablet See Rx Instructions .Route 12/22/22 10/21/23 Unknown Rx .COMPLEX #90 tabs rosuvastatin 10 mg tablet See Rx Instructions .Route 12/22/22 10/21/23 Unknown Rx .COMPLEX #90 tabs gabapentin 300 mg capsule 300 mg PO TID #270 caps 03/19/23 10/21/23 Unknown Rx midodrine 5 mg tablet 5 mg PO TID PRN LOW BLOOD PRESSURE 05/02/23 10/21/23 Unknown Rx #90 tabs clopidogrel 75 mg tablet See Rx Instructions .Route 05/25/23 10/21/23 Unknown Rx .COMPLEX #30 tabs duloxetine 60 mg capsule,delayed 60 mg PO BEDTIME #90 caps 08/17/23 10/21/23 Unknown Rx release hydrocodone 10 mg-acetaminophen 1 tab PO Q6H PRN Pain 30 days #120 10/30/23 Unknown Rx 325 mg tablet tabs Allergies Allergy/AdvReac Type Severity Reaction Status Date / Time No Known Allergies Allergy Verified 04/02/23 13:29 PFSH Acute PFSH: Medical History (Updated 10/03/23 @ 14:59 by Andrea Gaona MD) TIA (transient ischemic attack) Orthostatic hypotension Osteoporosis DO NOT REMOVE, LINKED TO TX PLAN Lung nodule Needs follow-up CT chest yearly for 5 years. Lumbar radiculopathy Scoliosis Macrocytosis Abdominal pain Pneumonia Surgical History History of tibial fracture 2019 - 3 fractures in tibial plateau - [place] Family History Family/Other Alzheimer's dementia Social History Smoking and tobacco/nicotine status: never used tobacco/nicotine Alcohol intake: never Substance/Drug Use: never Marital status: Vitals/I&O/Wt Last Vital Signs Temp 98.0 F 10/30/23 17:45 Pulse 105 H 10/30/23 17:45 Resp 20 H 10/30/23 17:45 BP 182/110 10/30/23 17:45 Pulse Ox 95 10/30/23 17:45 O2 Del Method Room Air 10/30/23 17:45 Weight last 48 hrs Weight 165 lb Physical Exam Narrative: Blood pressure 204/121 heart rate 73 O2 saturation 95% on room air NIH score =0 Glucose Accu-Chek 122 The patient is currently alert and oriented to person place and situation. The patient is in no apparent distress. Head atraumatic. Neck supple. Speech clear. Cranial nerves II through XII intact pupils 3 mm round reactive light and accommodation. Extraocular movements intact. Visual leigh appear to be full via confrontation. Throat clear. Motor testing 5/5 bilaterally. There was no drift. There was no ataxia. Deep tendon reflex revealed plantar responses bilaterally. There was no obvious extinction on double sensory stimulation. Throat clear. Lungs clear. Heart regular rhythm and rate. Extremities were negative for cyanosis. Data 10/30/23 17:55 10/30/23 17:55 A&P Assessment and plan (1) TIA (transient ischemic attack): Impression: 1. Transient ischemic attack manifested as speech difficulty, resolved in the emergency department. Code stroke initiated at 5:44 PM on 10/30/2023. Since the patient's symptoms resolved in the emergency department, NIH score =0 therefore the patient was not a candidate for intravenous thrombolytics and no intravenous thrombolytics were administered 1a. Questionable left pontine stroke versus artifact 2. History of hypotension treated with salt tablets and as needed midodrine 3. History of mild cognitive impairment 4. Elevated blood pressure in the emergency department 10/30/2023 Plan: 1. Agree with hospital admission for paroxysmal episodes suggestive of transient ischemic attack manifested as speech difficulty which resolved in the emergency department. 2. Follow-up results of CT angiogram of the head and neck 3. Continue Plavix 75 mg p.o. every morning with food per NIH stroke protocol 4. Continue Crestor 10 mg p.o. nightly per NIH stroke protocol 5. Neurochecks and vital signs per NIH stroke protocol 6. Address elevated blood pressure if the patient's blood pressure remains elevated and consider using low-dose IV beta-holli as needed 7. Please give patient and patient's family stroke pamphlet 8. Recommend occupational therapy, physical therapy and speech therapy consults for baseline evaluation and treatment as needed 9. Follow-up pending labs 10. Recommend obtaining noncontrast head MRI as recommended by radiology to further assess for the possibility of acute left pontine infarction note: The patient was already scheduled for scheduled MRA of the [place] and head MRI ordered by Dr. Gaona for 10/30/2023. Consult Attestations Medical Necessity Statement: The patient was evaluated by neurology for acute care/code stroke emergency department room #13 Coding Level of Care Code 81880 Diagnoses TIA (transient ischemic attack) G45.9
[2023-10-30 18:23] LABS: Troponin(5th) Baseline 10 ng/L (0-10)
[2023-10-30 18:24] LABS: Alanine Aminotransferase 11 U/L (0-33); Albumin Level 4.1 g/dL (3.5-5.2); Alkaline Phosphatase 80 U/L (35-105); Anion Gap 18.6 (5-19); Aspartate Amino Transferase 16 U/L (0-32); Blood Urea Nitrogen 13 mg/dL (8-23); Calcium 8.9 mg/dL (8.5-10.5); Carbon Dioxide 24 mmol/L (22-29); Chloride 98 mmol/L (98-107); Creatinine Clr Calc Pharmacy 57.9449; Globulin 2.5 g/dL (1.3-4.6); Glucose 129 mg/dL (65-115); Osmolality Calculated 286 mOsm/kg (285-295); Potassium 3.6 mmol/L (3.5-5.1); Sodium 137 mmol/L (136-145); Total Bilirubin 0.4 mg/dL (0.15-1.2); Total Protein 6.6 g/dL (6.6-8.7)
[2023-10-30] MEDS: labetalol 5 mg/mL SDV 20mL 10 MG IVP ×2 (19:08→21:02)
--- NOTE | 2023-10-30 19:24 | ECG_ITS ---
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 Measurements Intervals [place] Rate: 60 P: 93 NM: 186 QRS: 42 QRSD: 85 T: 76 QT: 423 QTc: 425 Interpretive Statements SINUS RHYTHM NONSPECIFIC T-WAVE ABNORMALITY Compared to ECG 10/30/2023 18:06:27 T-wave abnormality now present ST (T wave) deviation no longer present Electronically Signed On 10-31-2023 8:19:55 CDT by Shakeel Dumont M.D. [id number]
[2023-10-30 20:27] LABS: Troponin 5 2HR 11.08 ng/L (0-10); Troponin 5 2HR Delta 1.08 ABS# (0-10)
[2023-10-30 22:01] LABS: Bilirubin Urine Neg (Negative); Blood Urine 2+ (Negative); Glucose Urine UA Norm (Normal); Ketones Urine Negative (Negative); Leukocyte Esterase Urine Negative (Negative); Nitrate Urine Negative (Negative); Protein Urine Neg (Negative); RBC Urine 0-4 /hpf (0-2); Specific Gravity, Urine 1.015 (1.005-1.030); Squamous Epithelial Cell Urine 0-4 /hpf (0-5); Urine Appearance Clear (CLEAR); Urine Color Yellow (Yellow); Urobilinogen Urine Neg (Negative); pH Urine 8 (5-7)
[2023-10-30 22:02] LABS: Add Urine Culture? No
--- NOTE | 2023-10-30 22:06 | PM.HP ---
Providers/Chief Complaint Admitting Physician: Tera Araujo MD Primary Care Provider: Andrea Gaona MD Chief Complaint: stroke symptoms History of Present Illness Gabrielle Li is a 78 year old female with a past medical history of hypertension, history of mild cognitive impairment, who was assessed for TIA/strokelike symptoms about 2 weeks ago through primary care provider, has a MRI MRA ordered for tomorrow, who presents to [facility] right sided facial droop, right facial paresthesias, aphasia, slurring of her words. Currently patient is alert oriented x 3, following all commands, she does look to her for answers at times, but can follow all commands, no facial droop, no slurring of words, no focal weakness, NIH stroke scale is 0. According to patient she at about 5 PM or so, patient noticed that she had right facial numbness, slurring of her words, 2 aphasia, patient's daughter according to patient son at bedside noticed facial droop, no focal weakness, code stroke was called at 5:44 PM, head CT showed possible hypodensity within the left chuck, this may be artifactual, blood sugar 122, on examination by neurology, NIH stroke scale was 0, she was alert awake, following all commands, family tells me that by the time she arrived to the ER she was back to her baseline no slurring of words no facial droop, no aphasia, when she was in the ambulance she did have significant aphasia. CTA head and neck showed no large vessel occlusion. Patient takes Plavix and Crestor at home, which will be continued. Patient's tells me that she has a outpatient MRI MRA ordered for tomorrow, [place] has also had progressive short-term memory loss noted long-term memory loss, with a family history of Alzheimer's dementia Review of Systems Const: Denies: fever(s) Eyes: Denies: change in vision Card: Denies: chest pain Neuro: Denies: headache(s) Medications/Allergies Home Medications Medication Instructions Recorded Confirmed Last Taken Type denosumab 60 mg/mL subcutaneous See Rx Instructions .Route .COMPLEX 04/07/20 10/21/23 05/24/22 History syringe (Prolia) Salt Tabs 5 mg PO BID 08/22/22 10/21/23 Unknown History calcium carbonate (Calcium 600) 600 mg PO BEDTIME 07/01/0410/21/23 08/21/22 History dicyclomine 20 mg tablet 20 mg PO QID PRN Cramps 08/22/22 10/21/23 08/22/22 History levothyroxine 125 mcg tablet See Rx Instructions .Route 12/22/22 10/21/23 Unknown Rx .COMPLEX #90 tabs rosuvastatin 10 mg tablet See Rx Instructions .Route 12/22/22 10/21/23 Unknown Rx .COMPLEX #90 tabs gabapentin 300 mg capsule 300 mg PO TID #270 caps 03/19/23 10/21/23 Unknown Rx midodrine 5 mg tablet 5 mg PO TID PRN LOW BLOOD PRESSURE 05/02/23 10/21/23 Unknown Rx #90 tabs clopidogrel 75 mg tablet See Rx Instructions .Route 05/25/23 10/21/23 Unknown Rx .COMPLEX #30 tabs duloxetine 60 mg capsule,delayed 60 mg PO BEDTIME #90 caps 08/17/23 10/21/23 Unknown Rx release hydrocodone 10 mg-acetaminophen 1 tab PO Q6H PRN Pain 30 days #120 10/30/23 Unknown Rx 325 mg tablet tabs Allergies Allergy/AdvReac Type Severity Reaction Status Date / Time No Known Allergies Allergy Verified 04/02/23 13:29 PFSH Acute PFSH: Medical History TIA (transient ischemic attack) Orthostatic hypotension Osteoporosis DO NOT REMOVE, LINKED TO TX PLAN Lung nodule Needs follow-up CT chest yearly for 5 years. Lumbar radiculopathy Scoliosis Macrocytosis Abdominal pain Pneumonia Surgical History History of tibial fracture 2019 - 3 fractures in tibial plateau [facility] Family History Family/Other Alzheimer's dementia Social History Smoking and tobacco/nicotine status: never used tobacco/nicotine Alcohol intake: never Substance/Drug Use: never Marital status: Vitals/I&O/Wt Last Vital Signs Temp 98.0 F 10/30/23 17:45 Pulse 60 10/30/23 21:45 Resp 16 10/30/23 21:45 BP 181/89 10/30/23 20:45 Pulse Ox 96 10/30/23 21:45 O2 Del Method Room Air 10/30/23 18:37 Weight last 48 hrs Weight 74.843 kg Physical Exam Const: COMMON NORMALS: no acute distress and patient oriented x3 HENMT: COMMON NORMALS: normocephalic HEAD & SCALP: normocephalic Eye: COMMON NORMALS: Equal, round and reactive pupils present and EOMs intact bilaterally Neck/C-Spine: COMMON NORMALS: no JVD Resp: COMMON NORMALS: normal respiratory effort, No retractions, No use of accessory muscles and clear to auscultation bilaterally AUSCULTATION: clear to auscultation bilaterally Cardio: COMMON NORMALS: no JVD, regular rate, regular rhythm, S1 normal heart sound present and S2 normal heart sound present RATE: regular rate RHYTHM: regular rhythm HEART SOUNDS: S1 normal heart sound present and S2 normal heart sound present GI: COMMON NORMALS: Normal to inspection, nondistended, normoactive bowel sounds present, Soft to palpation and non-tender PALPATION: Yes Soft to palpation and Yes No hepatosplenomegaly present Extremity: COMMON NORMALS: capillary refill normal, no clubbing, cyanosis or edema, no calf tenderness and no pedal edema Neuro: COMMON NORMALS: patient oriented x3, CN's II-XII intact bilaterally and moves all extremities Psych: COMMON NORMALS: mental status grossly normal Data 10/30/23 17:55 10/30/23 17:55 A&P Assessment and plan (1) TIA (transient ischemic attack): Plan TIA -NIH stroke scale 0 -CT head - CT/CT head wo con* [id number] IMPRESSION: Possible hypodense focus in the left chuck. Recommend MRI brain without contrast for further assessment. CTA head and neck CT/CT angio headneck* [id number] IMPRESSION: No large vessel stenosis or occlusion. IMPRESSION: No hemodynamically significant stenosis within the arteries of the neck. Plan ? Patient's blood pressure was 210/110, she has received 1 dose of 10 mg labetalol, will receive another 10 mg of labetalol -Will monitor blood pressures closely -Aim for gradual and slow reduction of blood pressure -She does have a history of hypotension for which she uses midodrine, salt tablets -ABCD2 score 5 -Neurocheck -NIH stroke scale -Aspiration precautions -Speech eval, nurse dysphagia eval -PT OT -Continue aspirin -Continue statin -Continue Plavix -MRI, MRA ordered -Cardiac echo -Lipid panel -Full code -Lovenox for DVT prophylaxis Attestations Medical Necessity Statement*: Patient requires hospitalization for TIA, inpatient, greater than 2 midnights Diagnoses TIA (transient ischemic attack) G45.9
[2023-10-30 22:17] LABS: NT Pro B Type Natriuretic Pept 537 pg/mL (0-450)
--- NOTE | 2023-10-30 22:32 | USCV_ITS ---
Gabrielle Li Age: 78 Gender: F : 1945 Exam Date: 10/30/2023 22:50 Ordering Phys: Tera Araujo MD Technologist: IZZY [place]am [place] [facility] [place] Indication: stroke aphasia. BP: 223 / 103 HR: 60 Rhythm: Sinus Technical Quality: Adequate MEASUREMENTS (Male / Female) Normal Values 2D ECHO LV Diastolic Diameter PLAX 3.4 cm 4.2 - 5.9 / 3.9 - 5.3 cm IVS Diastolic Thickness 1.5 cm 0.6 - 1.0 / 0.6 - 0.9 cm IVS Systolic Thickness 1.6 cm LVPW Diastolic Thickness 1.3 cm 0.6 - 1.0 / 0.6 - 0.9 cm LVPW Systolic Thickness 1.4 cm LVOT Diameter 2.1 cm LV Ejection Fraction 2D Teich 58.6 % LV Ejection Fraction MOD 4C 56.7 % LV Ejection Fraction MOD 2C 55.8 % LV Ejection Fraction 2C AL 54.8 % LA Diameter 3.7 cm Aorta at Sinotubular Diameter 2.9 cm IVC Diameter 1.1 cm M-MODE LA Ao Ratio MM 1.3 AV Cusp Separation MM 1.9 cm DOPPLER AV Peak Velocity 106.0 cm/s LVOT Peak Velocity 94.0 cm/s AV Area Cont Eq vti 3.4 cm squared AV Area Cont Eq pk 3.0 cm squared MV Peak Velocity 97.3 cm/s MV Area PHT 2.3 cm squared TV Peak Velocity 246.5 cm/s TR Peak Velocity 251.0 cm/s TR Peak Gradient 25.2 mmHg TV Peak E Velocity 54.0 cm/s Right Atrial Pressure 3.0 mmHg Pulmonary Artery Systolic Pressu 28.2 mmHg PV Peak Velocity 81.0 cm/s FINDINGS Left Ventricle Normal left ventricular size and systolic function, EF 57%.no regional wall motion abnormalities. Mild left ventricular hypertrophy. Grade I/IV diastolic dysfunction (abnormal relaxation filling pattern), normal to mildly elevated filling pressures. Right Ventricle The right ventricle is normal in size and function. Right Atrium The right atrium is normal in size. Left Atrium Mildly increased left atrial size. Mitral Valve No gross abnormalities noted Aortic Valve Trace to mild aortic valve regurgitation. Tricuspid Valve Mild tricuspid valve regurgitation. Pulmonic Valve No gross abnormalities noted Pericardium Normal pericardium without effusion. Aorta Normal ascending aorta dimension. IVC The inferior vena cava appears normal. CONCLUSIONS Normal left ventricular size and systolic function, EF 57%.no regional wall motion abnormalities. Mild left ventricular hypertrophy. Grade I/IV diastolic dysfunction (abnormal relaxation filling pattern), normal to mildly elevated filling pressures. Trace to mild aortic valve regurgitation. Mild tricuspid valve regurgitation. Estimated pulmonary artery peak systolic pressure 28 mmHg There is no pericardial effusion. There are no intracardiac masses. Compared to the study from 06/27/2022, there may not be significant change Dr Chaparro Cortez MD FAC (Electronically Signed) Final Date: 31 October 2023 22:49 S
[2023-10-30 23:08] LABS: Estmated Average Glucose 114; Hemoglobin A1C 5.6 % (4.0-6.0)
[2023-10-30 23:09] LABS: Chol HDL Ratio 2.16 mg/dL (0.0-4.40); Cholesterol 125 mg/dL (0-200); HDL Cholesterol 58 mg/dL (60-100); LDL Cholesterol Calculated 54 mg/dL (50-129); LDL HDL Ratio 0.93 RATIO (0.00-3.22); Thyroid Stimulating Hormone 0.13 uIU/mL (0.27-4.20); Triglycerides 65 mg/dL (0-150)
[2023-10-30] MEDS: atorvastatin 40 mg Tablet 80 MG PO (23:36)
[2023-10-30] MEDS: aspirin 81 mg EC Tablet PO (23:36)
[2023-10-30] MEDS: pantoprazole 40 mg SDV IVP (23:36)
[2023-10-30] MEDS: enoxaparin 40 mg/0.4 mL Syringe SUBCUT (23:37)
[2023-10-30] MEDS: sodium chloride 0.9% 1,000 ML 75 ML IV (23:37)
--- NOTE | 2023-10-30 23:45 | ECG_ITS ---
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 Measurements Intervals [place] Rate: 61 P: 88 DE: 192 QRS: 62 QRSD: 83 T: 90 QT: 418 QTc: 423 Interpretive Statements SINUS RHYTHM NONSPECIFIC T-WAVE ABNORMALITY Compared to ECG 10/30/2023 19:24:04 No significant changes Electronically Signed On 10-31-2023 8:20:36 CDT by Shakeel Dumont M.D. [id number]
[2023-10-30] MEDS: morphine 4 mg/mL SDV 1 mL 1 MG IVP (23:49)
[2023-10-31] VITALS (8 sets, daily range): BP systolic 110–192; BP diastolic 56–92; PULSE 60–67; RESP 14–21; TEMP 36.4–36.9; O2SAT 95–98
[2023-10-31 00:11] LABS: Troponin 5 6HR 17.07 ng/L (0-10); Troponin 5 6HR Delta 7.07 ng/L (0-12)
[2023-10-31] MEDS: hyDRALAzine 20 mg/mL INJ 1 mL 5 MG IVP (01:15)
[2023-10-31] MEDS: HYDROcodone-acetaminophen 10-325 mg Tablet 1 TAB PO ×2 (02:46→11:33)
[2023-10-31 04:01] LABS: Basophils % 0.3 %; Eosinophils % 0.4 %; Hematocrit 35.8 % (36-47); Lymphocytes # 1.4 10^3/uL (0.8-4.8); Lymphocytes % 20.7 %; Mean Corpuscular Hemoglobin 32.7 pg (27-33); Mean Corpuscular Volume 99.2 fl (85-98); Mean Platelet Volume 10.4 fL (7.4-10.4); Monocytes # 0.6 10^3/uL (0.2-0.9); Monocytes % 8.4 %; Neutrophils # 4.76 10^3/uL (1.8-7.7); Neutrophils % 68.6 %; Nucleated Red Blood Cells % 0 %; Platelet Count 215 10^3/cmm (157-399); Red Blood Count 3.61 10^6/uL (3.85-5.65); Red Cell Distribution Width 13.2 % (12.1-15.1); White Blood Count 6.94 10^3/uL (3.29-11.43)
[2023-10-31 04:24] LABS: Alanine Aminotransferase 9 U/L (0-33); Albumin Level 3.8 g/dL (3.5-5.2); Alkaline Phosphatase 73 U/L (35-105); Anion Gap 13.7 (5-19); Aspartate Amino Transferase 15 U/L (0-32); Blood Urea Nitrogen 11 mg/dL (8-23); Calcium 8.8 mg/dL (8.5-10.5); Carbon Dioxide 26 mmol/L (22-29); Chloride 102 mmol/L (98-107); Creatinine Clr Calc Pharmacy 65.7847; Globulin 2.5 g/dL (1.3-4.6); Glucose 108 mg/dL (65-115); Osmolality Calculated 286 mOsm/kg (285-295); Potassium 3.7 mmol/L (3.5-5.1); Sodium 138 mmol/L (136-145); Total Bilirubin 0.5 mg/dL (0.15-1.2); Total Protein 6.3 g/dL (6.6-8.7)
[2023-10-31] MEDS: aspirin 81 mg EC Tablet PO (08:08)
[2023-10-31] MEDS: gabapentin 300 mg Capsule PO (08:09)
[2023-10-31] MEDS: clopidogrel 75 mg Tablet PO (08:09)
[2023-10-31] MEDS: levothyroxine 125 mcg Tablet PO (08:09)
--- NOTE | 2023-10-31 09:11 | PC.CHAP ---
Pastoral Care Encounter/Spiritual Assessment Type of Contact [] Declined rug dyer visit [] Patient/Family/Request visit [] Outpatient visit [] Follow-up visit [] Physician referral [] Code/Alert [x] Routine visit [] Staff referral [] Actively dying [] Patient sleeping [x] Family support [] [] Out of room [] Palliative care [] [] Receiving care in room [] Pre-surgical visit [] Trauma [] Long length of stay [] ICU visit [] Other: Relational/Emotional Strength [x] Patient feels connected with others/family/visitors/staff [] Distress [] Loneliness/isolation [] Abandonment Spirituality of Patient [x] Person of Nyasia [] Attends Jewish of their [place] [x] Believes in Prayer [] Reads Bible or Restorationism materials [] There are Spiritual issues to be addressed Calculus Tutor Interventions [x] Prayer [x] Active listening [x] Non-anxious presence [x] Spiritual/emotional support [] Crisis/trauma care [] Spiritual counseling [] Bereavement support [] Provided bereavement packet [] Provided Bible/devotional materials [] Provided toy/stuffed animal, coloring book to patient or family member [] Provided Communion [] Anointing/[place] [] Salvation [x] Completed spiritual assessment [] Other: Impact on Illness or Injury [] Angry [] Fearful [] Anxious [] Often cries [] Exhaustion [] Unable to work [] Unable to attend christianity [] Unable to walk/stand [] Unable to read [] Unable to drive [] Unable to eat/drink [] Unable to sleep [] Unable to be with family [] Patient intubated [] Other: Summary Time spent with patient 5 min
--- NOTE | 2023-10-31 09:30 | MR_ITS ---
WS: [id number] MRA HEAD TECHNIQUE: Axial 3-D TOF images obtained with axial images and axial, sagittal, and coronal 2-D refor matted images. CLINICAL INFORMATION: cva COMPARISON: None. FINDINGS: Dominant distal RIGHT vertebral artery. Basilar artery is patent. Normal vascularity to the MOLD DRESSER gilmar tory bilaterally. Both ICAs are patent at the skull base. Tortuous cavernous carotid arteries. Normal vascularity to th e RONN and MCA territories bilaterally. No evidence of high-grade proximal stenosis. Normal variant ab sent RIGHT A1 segment MR/MR angio head wo con [id number] IMPRESSION: 1. No evidence of high-grade proximal stenosis. 2. Mild intracranial atheromatous disease. 3. Normal variant absent RIGHT A1 segment.
--- NOTE | 2023-10-31 09:30 | MR_ITS ---
WS: [id number] MRI HEAD WITHOUT CONTRAST TECHNIQUE: Sagittal T1, T2 axial, T2 axial FLAIR, axial and coronal T1 images, axial susceptibility w eighted imaging, axial diffusion weighted images, and coronal T2 images were obtained. CLINICAL INFORMATION: cva COMPARISON: CT 10/30/2023 FINDINGS: Tiny amount of partially restricted diffusion within the LEFT periventricular white matter suspicious for small amount of subacute ischemia versus artifact. Otherwise no evidence of restricted diffusion . No restricted diffusion in the chuck. Moderate small vessel changes. Moderate parenchymal volume los s. Small vessel changes in the chuck. Normal vascular flow voids at the skull base. No extra-axial fluid collections. No evidence of mass or mass effect. Paranasal sinuses and mastoid air cells are well aer ated. No hemosiderin on the susceptibly weighted images. Normal optic chiasm and pituitary infundibul um. MR/MR head wo con* [id number] IMPRESSION: 1. Tiny amount of partially restricted diffusion in the LEFT frontal parietal white matter suspicious for tiny amount of subacute ischemia versus T2 shine th rough artifact. 2. Moderate small vessel changes with mild parenchymal volume loss. 3. Small vessel changes in the chuck. 4. Tiny chronic lacunar infarcts in the basal ganglia. 5. No other acute findings.
--- NOTE | 2023-10-31 12:16 | P.DS_ITS ---
Discharge Providers Date of Admission: 10/30/23 20:58 Date of Discharge: October 31, 2023 Attending Provider at Admission: Tera Araujo MD Attending Provider at Discharge: Ralph Steele MD Primary Care Provider: Andrea Gaona MD Diagnoses at Discharge Discharge Diagnosis (1) TIA (transient ischemic attack): Status: Acute Reason for Visit Reason for Visit: stroke symptoms Hospital Course Hospital Course Patient 78-year-old white female who presented to the hospital with difficulty speaking, and concern of a facial droop. She came to the emergency department, her symptoms resolved. She was admitted with a TIA. Initial CT demonstrated questionable left hcuck infarct. She was already on Plavix. Baby aspirin was added, and statin dose increased. MRI and MRA the following day demonstrated no flow-limiting stenosis, questionable small focus left parietal area of ischemia. Patient had no neurological exam findings at that time. She will discharge home today with Plavix, low-dose aspirin, neurology follow-up in 2 weeks, discontinue salt tablets that are using for hypertension, close monitoring of blood pressure, reduce Neurontin dosing, reduce thyroid hormone dosing, and return for any concerns. I discussed in detail with the family, who agreed with the plan. Echo pending on discharge. They will follow-up with this with her primary. An event monitor was ordered. Physical Exam Narrative: General Exam no distress Cardiovascular regular rhythm, no murmur Lungs clear Abdomen soft Extremities no sinus clubbing edema Neuro no focal deficits Discharge Data Studies Completed and Pending Completed Studies During Hospitalization Category Date Time Status CT angio headneck* [id number] Stat Cat Scan 10/30/23 17:[address] head wo con* [id number] Stat Cat Scan 10/30/23 17:45 Completed XR chest 1V portable [id number] Stat Exams 10/30/23 17:45 Completed MR angio head wo con [id number] Routine MRI 10/31/23 09:30 Completed MR head wo con* [id number] Routine MRI 10/31/23 09:30 Completed Pending at discharge Category Date Time Status CV. echo complete* [id number] Routine Ultrasound 10/30/23 22:32 Taken Radiology Impressions Chest X-Ray 10/30/23 17:45 IMPRESSION: No acute cardiopulmonary findings. Head CT 10/30/23 17:45 IMPRESSION: Possible hypodense focus in the left chuck. Recommend MRI brain without contrast for further assessment. ADDENDUM: 10/30/23 [id number] THIS REPORT CONTAINS FINDINGS THAT MAY BE CRITICAL TO PATIENT CARE. The findings were verbally communicated via telephone conference with DR. ROSSI at 6:21 PM CDT on 10/30/2023. The findings were acknowledged and understood. Head/Neck CTA 10/30/23 17:55 IMPRESSION: No large vessel stenosis or occlusion. IMPRESSION: No hemodynamically significant stenosis within the arteries of the neck. REFERENCES: NASCET CRITERIA. The degree of stenosis in the cervical segment of the internal carotid artery is based on NASCET criteria. Normal is no stenosis. Mild is less than 50% stenosis. Moderate is 50-69% stenosis. Severe is 70% to 99% stenosis. Total occlusion is no detectable patent lumen. THIS REPORT CONTAINS FINDINGS THAT MAY BE CRITICAL TO PATIENT CARE. The findings were verbally communicated via telephone conference with DR. ROSSI at 6:21 PM CDT on 10/30/2023. The findings were acknowledged and understood. Head MRI 10/31/23 09:30 IMPRESSION: 1. Tiny amount of partially restricted diffusion in the LEFT frontal parietal white matter suspicious for tiny amount of subacute ischemia versus T2 shine through artifact. 2. Moderate small vessel changes with mild parenchymal volume loss. 3. Small vessel changes in the chuck. 4. Tiny chronic lacunar infarcts in the basal ganglia. 5. No other acute findings. Head MRA 10/31/23 09:30 IMPRESSION: 1. No evidence of high-grade proximal stenosis. 2. Mild intracranial atheromatous disease. 3. Normal variant absent RIGHT A1 segment. Laboratory Results WBC 6.94 10^3/uL (3.29-11.43) 10/31/23 03:36 RBC 3.61 10^6/uL (3.85-5.65) L 10/31/23 03:36 Hgb 11.80 g/dL (11.27-16.99) 10/31/23 03:36 Hct 35.8 % (36-47) L 10/31/23 03:36 MCV 99.2 fl (85-98) H 10/31/23 03:36 MCH 32.7 pg (27-33) 10/31/23 03:36 MCHC 33.0 g/dL (30-55) 10/31/23 03:36 RDW 13.2 % (12.1-15.1) 10/31/23 03:36 Plt Count 215 10^3/cmm (157-399) 10/31/23 03:36 MPV 10.4 fL (7.4-10.4) 10/31/23 03:36 Neut % (Auto) 68.6 % 10/31/23 03:36 Lymph % (Auto) 20.7 % 10/31/23 03:36 [place] % (Auto) 8.4 % 10/31/23 03:36 Eos % (Auto) 0.4 % 10/31/23 03:36 Baso % (Auto) 0.3 % 10/31/23 03:36 Neut # (Auto) 4.76 10^3/uL (1.8-7.7) 10/31/23 03:36 Lymph # (Auto) 1.4 10^3/uL (0.8-4.8) 10/31/23 03:36 [place] # (Auto) 0.6 10^3/uL (0.2-0.9) 10/31/23 03:36 Eos # (Auto) 0.0 10^3/uL (0.0-0.8) 10/31/23 03:36 Baso # (Auto) 0.0 10^3/uL (0.0-0.1) 10/31/23 03:36 Nucleated RBC % (auto) 0 % 10/31/23 03:36 Nucleated RBCs # 0.0 /100WBC 10/31/23 03:36 PT 13.00 SECONDS (12.1-14.9) 10/30/23 17:55 INR 0.95 (0.8-1.2) 10/30/23 17:55 APTT 29.5 SECONDS (23.9-36.7) 10/30/23 17:55 Sodium 138 mmol/L (136-145) 10/31/23 03:36 Potassium 3.7 mmol/L (3.5-5.1) 10/31/23 03:36 Chloride 102 mmol/L (98-107) 10/31/23 03:36 Carbon Dioxide 26 mmol/L (22-29) 10/31/23 03:36 Anion Gap 13.7 (5-19) 10/31/23 03:36 BUN 11 mg/dL (8-23) 10/31/23 03:36 Creatinine 0.8 mg/dL (0.5-0.9) 10/31/23 03:36 GFR Calculation Not Reportable 10/31/23 03:36 Glucose 108 mg/dL (65-115) 10/31/23 03:36 POC Glucose 122 mg/dL (70-110) H 10/30/23 17:45 Estimat Average Glucose 114 10/30/23 17:55 Hemoglobin A1c 5.6 % (4.0-6.0) 10/30/23 17:55 Calculated Osmolality 286 mOsm/kg (285-295) 10/31/23 03:36 Calcium 8.8 mg/dL (8.5-10.5) 10/31/23 03:36 Total Bilirubin 0.5 mg/dL (0.15-1.2) 10/31/23 03:36 AST 15 U/L (0-32) 10/31/23 03:36 ALT 9 U/L (0-33) 10/31/23 03:36 Alkaline Phosphatase 73 U/L (35-105) 10/31/23 03:36 Troponin T Baseline 10 ng/L (0-10) 10/30/23 17:55 Troponin T 120 Minute 11.08 ng/L (0-10) H 10/30/23 19:52 Delta Troponin T 1.08 ABS# (0-10) 10/30/23 19:52 Troponin T Hi Sens 6Hr 17.07 ng/L (0-10) H 10/30/23 23:30 Troponin T Hi Sens 6Hr Delta 7.07 ng/L (0-12) 10/30/23 23:30 NT-Pro-B Natriuret Pep 537 pg/mL (0-450) H 10/30/23 19:52 Total Protein 6.3 g/dL (6.6-8.7) L 10/31/23 03:36 Albumin 3.8 g/dL (3.5-5.2) 10/31/23 03:36 Globulin 2.5 g/dL (1.3-4.6) 10/31/23 03:36 Triglycerides 65 mg/dL (0-150) 10/30/23 19:52 Cholesterol 125 mg/dL (0-200) 10/30/23 19:52 LDL Cholesterol, Calc 54 mg/dL (50-129) 10/30/23 19:52 HDL Cholesterol 58 mg/dL (60-100) L 10/30/23 19:52 LDL/HDL Ratio 0.93 RATIO (0.00-3.22) 10/30/23 19:52 Cholesterol/HDL Ratio 2.16 mg/dL (0.0-4.40) 10/30/23 19:52 TSH 0.13 uIU/mL (0.27-4.20) L 10/30/23 19:52 Urine Color Yellow (Yellow) 10/30/23 21:36 Urine Appearance Clear (CLEAR) 10/30/23 21:36 Urine pH 8 (5-7) A 10/30/23 21:36 Ur Specific [place] 1.015 (1.005-1.030) 10/30/23 21:36 Urine Protein Neg (Negative) 10/30/23 21:36 Urine Glucose (UA) Norm (Normal) 10/30/23 21:36 Urine Ketones Negative (Negative) 10/30/23 21:36 Urine Blood 2+ (Negative) H 10/30/23 21:36 Urine Nitrate Negative (Negative) 10/30/23 21:36 Urine Bilirubin Neg (Negative) 10/30/23 21:36 Urine Urobilinogen Neg mg/dL (Negative) 10/30/23 21:36 Ur Leukocyte Esterase Negative (Negative) 10/30/23 21:36 Urine RBC 0-4 /hpf (0-2) H 10/30/23 21:36 Urine WBC None /hpf (0-5) 10/30/23 21:36 Ur Squamous Epith Cells 0-4 /hpf (0-5) H 10/30/23 21:36 Amorphous Sediment Not Reportable 10/30/23 21:36 Urine Bacteria None /hpf (NONE) 10/30/23 21:36 Vitals Last Vital Signs Temp 97.6 F 10/31/23 11:41 Pulse 65 10/31/23 11:41 Resp 21 H 10/31/23 11:41 BP 111/76 10/31/23 11:41 Pulse Ox 95 10/31/23 11:18 O2 Del Method Room Air 09/18/24 11:18 Discharge Plan Discharge Patient Disposition: Home Condition: Stable Prescriptions: New aspirin 81 mg Tablet,Delayed Release (Dr/Ec) 81 mg PO DAILY Qty: 30 0RF atorvastatin 40 mg Tablet 80 mg PO BEDTIME Qty: 60 0RF gabapentin [Neurontin] 100 mg capsule 100 mg PO TID Qty: 90 0RF levothyroxine 100 mcg capsule 100 mcg PO DAILY Qty: 30 0RF Continued midodrine 5 mg tablet 5 mg PO TID PRN (Reason: LOW BLOOD PRESSURE) Qty: 90 6RF clopidogrel 75 mg tablet See Rx Instructions .ROUTE .COMPLEX Qty: 30 6RF Dose Instruction: Take 1 tablet by mouth once daily Rx Instructions: Take 1 tablet by mouth once daily duloxetine 60 mg capsule,delayed release(DR/EC) 60 mg PO BEDTIME Qty: 90 3RF hydrocodone-acetaminophen 10-325 mg tablet 1 tab PO Q6H PRN (Reason: Pain) 30 Days Qty: 120 0RF Prolia 60 mg/mL Syringe See Rx Instructions .ROUTE .COMPLEX Rx Instructions: 60 mg subcutaneously EVERY SIX MONTHS calcium carbonate [Calcium 600] 600 mg calcium (1,500 mg) Tablet 600 mg PO BEDTIME Salt Tabs 5 mg PO BID dicyclomine 20 mg tablet 20 mg PO QID PRN (Reason: Cramps) Discontinued levothyroxine 125 mcg tablet See Rx Instructions .ROUTE .COMPLEX Qty: 90 3RF Dose Instruction: TAKE 1 TABLET BY MOUTH ONCE DAILY AT 8 AM Rx Instructions: TAKE 1 TABLET BY MOUTH ONCE DAILY AT 8 AM rosuvastatin 10 mg tablet See Rx Instructions .ROUTE .COMPLEX Qty: 90 3RF Dose Instruction: TAKE 1 TABLET BY MOUTH ONCE DAILY AT 9AM Rx Instructions: TAKE 1 TABLET BY MOUTH ONCE DAILY AT 9AM gabapentin 300 mg capsule 300 mg PO TID Qty: 270 2RF Discharge Orders: Discharge Order (Routine); Ordered 10/31/23 Ordered By: Ralph Steele Other Ambulatory Orders: MCT/Event Monitor 21 Days (Routine) Timeframe: 1 Day Facility: [facility] - Location: Radiology Ordered By: Ralph Steele Referrals: Camden Charles MD [Physician] - 2 weeks Andrea Gaona MD [Primary Care Provider] - 4-7 days Discharge Diet: Cardiac Discharge Activity: Increase activity as tolerated Patient Instructions: Levothyroxine (By mouth), Aspirin (By mouth), Gabapentin (By mouth), Atorvastatin (By mouth), Transient Ischemic Attack (DC), Ischemic Stroke (DC), Opioid Safety, Stroke Stoplight Activity Restrictions/Additional Instructions: Take all medicine as prescribed Follow-up with neurology in 2 weeks Follow-up with primary care provider 3 to 5 days Event monitor Reduce Neurontin to 100 mg 3 times daily Cautiously use hydrocodone for pain Aspirin low-dose, neurology will determine when this can be discontinued. TSH in 6 weeks Discharge Attestations Time Spent in Discharge Care*: greater than 30 min Quality Metrics Clinical Quality Measures [ Cerebrovascular Accident { Contraindication to Antithrombotic: None; antithrombotic prescribed; Contraindication to Anticoagulation: Other (not indicated); Contraindication to Statin: None; Statin prescribed; Reason stroke education not provided: Stroke education provided to family/guardian;}] Coding Level of Care Code 75094 Total time (in minutes) for Discharge: 35 Diagnoses TIA (transient ischemic attack) G45.9
== END 2023-10-31 13:54 | disposition home or self-care (01) | DRG 69 ==
LOC: ER 20:42 → CSU 21:16
PROVIDERS: Admitting Provider Family Medicine; Emergency Provider Emergency Medicine; PCP Family Medicine; Visit Provider Internal Medicine
DX: G45.9 Transient cerebral ischemic attack, unspecified (principal); I95.1 Orthostatic hypotension; Z79.02 Long term (current) use of antithrombotics/antiplatelets; Z82.0 Family history of epilepsy and other diseases of the nervous system
CPT/HCPCS: 36415; 36416; 70450; 70496; 70498; 70544; 70551; 71045; 80053; 80061; 81001; 82962; 83036; 83880; 84443; 84484; 85025; 85610; 85730; 92610; 93005; 93306; 94664; 96372; 96376; A9270; J0360; J1650; J2270; J2470; J3490; J7030

== ENCOUNTER 2023-11-09 10:57 | Emergency (ER) | payer OTHER, MEDICARE, SELFPAY ==
[2023-11-09] VITALS (8 sets, daily range): BP systolic 119–230; BP diastolic 55–103; PULSE 62–612; RESP 17–22; O2SAT 94–99
--- NOTE | 2023-11-09 11:11 | CT_ITS ---
WS: [id number] CT HEAD TECHNIQUE: Noncontrast CT of the head obtained from the skullbase to the vertex. CLINICAL INFORMATION: Symptoms of acute stroke COMPARISON: MRI 10/31/[address] 10/30/2023 and 06/09/2022 DLP: [id number] scans [address] [facility] use at least one of these dose optimization techniques: automated e xposure control; mA and/or kV adjustment per patient size (includes targeted exams where dose is matc hed to clinical indication); or iterative reconstruction. FINDINGS No evidence of intracranial hemorrhage or mass effect. Ventricular system and basal cisterns are bay nt. Moderate small vessel changes with moderate parenchymal volume loss. No extra-axial fluid collect ions. Small focus of low-attenuation corresponding to the area of suspected subacute ischemia in the LEFT frontal parietal white matter seen on the recent MRI. Tiny chronic lacunar infarcts in the basal ganglia. Paranasal sinuses and mastoid air cells are well aerated. .Normal visualized soft tissues. CT/CT head thrombolytic [id number] IMPRESSION: 1. No evidence of intracranial hemorrhage or mass effect. 2. Small focus of low-attenuation corresponding to the area of suspected subac [place] ischemia in the LEFT frontal parietal white matter seen on the recent MRI . This measures 5 to 6 mm 3. No other significant changes or acute findings Notified Yovanny Abrams DO at 11/09/2023 11:25 AM.
--- NOTE | 2023-11-09 11:11 | ECG_ITS ---
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 Measurements Intervals [place] Rate: 67 P: 76 IN: 182 QRS: 29 QRSD: 84 T: 77 QT: 400 QTc: 423 Interpretive Statements SINUS RHYTHM NONSPECIFIC T-WAVE ABNORMALITY Compared to ECG 10/31/2023 00:34:21 No significant changes Electronically Signed On 11-09-2023 20:18:52 CDT by Chaparro Cortez M.D. [email or web address]
--- NOTE | 2023-11-09 11:16 | ED_ITS ---
HPI - Neuro Symptoms/Deficit 2 General: Chief Complaint: Neuro Symptoms/Deficit Stated Complaint: face draw, confusion, tingling hands Time Seen by Provider: 11/09/23 11:11 History of Present Illness: 78-year-old female presents to the [facility] ency room with complaints of right sided facial weakness. She was seen a week ago had an MRI there was a small subacute stroke noted on MRI. She had full workup last week when she is here the chart was reviewed. Today she states she had some right sided facial weakness. On testing she has some diplopia with that was actually monocular. Reviewing previous charts there is no mention of it in previous admission. Last known well 10:30 AM. Associated symptoms: Deny chest pain Related Data Home Medications Medication Instructions Recorded Confirmed denosumab 60 mg/mL subcutaneous See Rx Instructions .Route .COMPLEX 04/07/20 11/09/23 syringe (Prolia) Salt Tabs 5 mg PO BID 08/22/22 11/09/23 clopidogrel 75 mg tablet 75 mg PO DAILY 11/09/23 11/09/23 Previous Rx's Medication Instructions Recorded duloxetine 60 mg capsule,delayed 60 mg PO BEDTIME #90 caps 08/17/23 release hydrocodone 10 mg-acetaminophen 1 tab PO Q6H PRN Pain 30 days #120 10/30/23 325 mg tablet tabs aspirin 81 mg tablet,delayed 81 mg PO DAILY #30 tabs 10/31/23 release atorvastatin 40 mg tablet 80 mg (2 x 40 mg) PO BEDTIME #60 10/31/23 tabs gabapentin 100 mg capsule 100 mg PO TID #90 caps 10/31/23 (Neurontin) levothyroxine 100 mcg capsule 100 mcg PO DAILY #30 caps 10/31/23 cefdinir 300 mg capsule 300 mg PO BID #14 caps 11/09/23 divalproex 500 mg tablet,extended 500 mg PO DAILY #30 tabs 11/09/23 release 24 hr (Depakote ER) Allergies Allergy/AdvReac Type Severity Reaction Status Date / Time No Known Allergies Allergy Verified 11/09/23 11:15 Review of Systems 2 Const: Denies: fever(s) or chills Card: Denies: chest pain Resp: Denies: dyspnea GI: Denies: abdominal pain : Denies: dysuria, urinary frequency or urinary urgency Musc: Denies: neck pain or back pain Skin/Breast: Denies: rash PFSH ED 2 PFSH: Medical History TIA (transient ischemic attack) Orthostatic hypotension Osteoporosis DO NOT REMOVE, LINKED TO TX PLAN Lung nodule Needs follow-up CT chest yearly for 5 years. Lumbar radiculopathy Scoliosis Macrocytosis Abdominal pain Pneumonia Surgical History History of tibial fracture 2019 - 3 fractures in tibial plateau - [place] Family History Family/Other Alzheimer's dementia Social History Smoking and tobacco/nicotine status: never used tobacco/nicotine Alcohol intake: never Substance/Drug Use: never Marital status: NIH stroke score 2 NIHSS: Level Of Consciousness - 1a: 0 Level Of Consciousness Questions - 1b: Both Correct Level Of Consciousness Commands - 1c: Both Correct Best Gaze - 2: Normal Visual Martínez - 3: No Visual Loss Facial Palsy - 4: N ormal Motor Arm Right - 5: No Drift Motor Arm Left - 5: No Drift Motor Leg Right - 6: No Drift Motor Leg Left - 6: No Drift Limb Ataxia - 7: A bsent Sensory - 8: Normal Best Language - 9: No Aphasia Dysarthia - 10: Normal Extinction And Inattention - 11: 0 Score: Total Score: 0 Physical Exam 2 Const: COMMON NORMALS: no acute distress GENERAL APPEARANCE: cooperative and comfortable ORIENTATION/CONSCIOUSNESS: Yes awake, Yes oriented to person, Yes oriented to place and Yes oriented to time HENMT: COMMON NORMALS: normocephalic, atraumatic and hearing grossly normal bilaterally HEAD & SCALP: normocephalic and atraumatic Eye: OTHER: Esotropia right eye. Patient has some double vision in the left visual field however it is also present when the right eye is covered. Resp: COMMON NORMALS: normal respiratory effort, No retractions, No use of accessory muscles and clear to auscultation bilaterally AUSCULTATION: clear to auscultation bilaterally Cardio: COMMON NORMALS: regular rate, regular rhythm and No murmurs present (Cardio) RATE: regular rate RHYTHM: regular rhythm GI: COMMON NORMALS: Soft to palpation and No hepatosplenomegaly present A USCULTATION: Yes normoactive bowel sounds PALPATION: Yes Soft to palpation, No Tenderness to palpation present (GI), No Guarding due to palpation present (GI) and Yes No hepatosplenomegaly present Extremity: COMMON NORMALS: normal to inspection, capillary refill normal, no clubbing, cyanosis or edema, no calf tenderness and no pedal edema Neuro: SENSORIUM/ORIENTATION: Yes oriented to person, Yes oriented to place and Yes oriented to time Skin: COMMON NORMALS: no rashes or lesions noted GENERAL SKIN EXAM: no rashes or lesions noted Course 2 Vital Signs: Vital signs: Vital Signs Pulse Rate 76 11/09/23 16:00 Respiratory Rate 22 H 11/09/23 14:16 Blood Pressure 139/75 11/09/23 16:00 Pulse Oximetry 95 11/09/23 16:00 Oxygen Delivery Me thod Room Air 11/09/23 14:16 MDM - Neuro Symptoms/Deficit Medical Decision Making No acute new changes on the CT. There is monocular diplopia which I suspect may be psychogenic. I have asked Dr. Lopez to see the patient on initial NIH score she scored a 0. She is already on aspirin Plavix and atorvastatin. Dr. Lopez seen the patient and she agrees there is no acute stroke findings. The CT of the head showed the previously noted abnormalities from her last visit but nothing new. Dr. Lopez believes these symptoms are associated with migraine which patient has frequently. She recommends Depacon IV and discharged home on Depakote extended release 5 mg once a day and she will follow-up with the patient. Reports that her workup and review of labs patient also found to have a cystitis to have some bladder spasm and abdominal discomfort. She also had an episode of hyperventilation. He was treated with Ativan, upper GI cocktail and Pyridium, these issues resolved after this. Patient discharged home on cefdinir to begin tomorrow. Increase fluid intake Medical Records I reviewed the patient's medical records. Lab Data I reviewed the patient's lab results. 11/09/23 11:21 11/09/23 11:[address] 11/09/23 11:11 IMPRESSION: 1. No evidence of intracranial hemorrhage or mass effect. 2. Small focus of low-attenuation corresponding to the area of suspected subacute ischemia in the LEFT frontal parietal white matter seen on the recent MRI 10/31/2023. This measures 5 to 6 mm 3. No other significant changes or acute findings Notified Yovanny Abrams DO at 11/09/2023 11:25 AM. Laboratory Results WBC 4.73 10^3/uL (3.29-11.43) 11/09/23 11:21 RBC 3.78 10^6/uL (3.85-5.65) L 11/09/23 11:21 Hgb 12.10 g/dL (11.27-16.99) 11/09/23 11:21 Hct 37.5 % (36-47) 11/09/23 11:21 MCV 99.2 fl (85-98) H 11/09/23 11:21 MCH 32.0 pg (27-33) 11/09/23 11:21 MCHC 32.3 g/dL (30-55) 11/09/23 11:21 RDW 13.2 % (12.1-15.1) 11/09/23 11:21 Plt Count 212 10^3/cmm (157-399) 11/09/23 11:21 MPV 10.7 fL (7.4-10.4) H 11/09/23 11:21 Neut % (Auto) 57.3 % 11/09/23 11:21 Lymph % (Auto) 26.2 % 11/09/23 11:21 Dewitt % (Auto) 10.1 % 11/09/23 11:21 Eos % (Auto) 1.1 % 11/09/23 11:21 Baso % (Auto) 0.6 % 11/09/23 11:21 Neut # (Auto) 2.71 10^3/uL (1.8-7.7) 11/09/23 11:21 Lymph # (Auto) 1.2 10^3/uL (0.8-4.8) 11/09/23 11:21 [place]itt # (Auto) 0.5 10^3/uL (0.2-0.9) 11/09/23 11:21 Eos # (Auto) 0.1 10^3/uL (0.0-0.8) 11/09/23 11:21 Baso # (Auto) 0.0 10^3/uL (0.0-0.1) 11/09/23 11:21 Nucleated RBC % (auto) 0 % 11/09/23 11:21 Nucleated RBCs # 0.0 /100WBC 11/09/23 11:21 PT 13.40 SECONDS (12.1-14.9) 11/09/23 11:21 INR 0.99 (0.8-1.2) 11/09/23 11:21 APTT 30.8 SECONDS (23.9-36.7) 11/09/23 11:21 Sodium 139 mmol/L (136-145) 11/09/23 11:21 Potassium 3.8 mmol/L (3.5-5.1) 11/09/23 11:21 Chloride 103 mmol/L (98-107) 11/09/23 11:21 Carbon Dioxide 27 mmol/L (22-29) 11/09/23 11:21 Anion Gap 12.8 (5-19) 11/09/23 11:21 BUN 16 mg/dL (8-23) 11/09/23 11:21 Creatinine 0.9 mg/dL (0.5-0.9) 11/09/23 11:21 GFR Calculation Not Reportable 11/09/23 11:21 Glucose 102 mg/dL (65-115) 11/09/23 11:21 POC Glucose 90 mg/dL (70-110) 11/09/23 11:12 Calculated Osmolality 289 mOsm/kg (285-295) 11/09/23 11:21 Calcium 9.5 mg/dL (8.5-10.5) 11/09/23 11:21 Total Bilirubin 0.6 mg/dL (0.15-1.2) 11/09/23 11:21 AST 15 U/L (0-32) 11/09/23 11:21 ALT 9 U/L (0-33) 11/09/23 11:21 Alkaline Phosphatase 74 U/L (35-105) 11/09/23 11:21 Total Protein 6.4 g/dL (6.6-8.7) L 11/09/23 11:21 Albumin 4.0 g/dL (3.5-5.2) 11/09/23 11:21 Globulin 2.4 g/dL (1.3-4.6) 11/09/23 11:21 Urine Color Yellow (Yellow) 11/09/23 11:39 Urine Appearance Cloudy (CLEAR) A 11/09/23 11:39 Urine pH 7.0 (5-7) 11/09/23 11:39 Ur Specific [place] 1.023 (1.005-1.030) 11/09/23 11:39 Urine Protein Trace (Negative) A 11/09/23 11:39 Urine Glucose (UA) Negative (Normal) 11/09/23 11:39 Urine Ketones Negative (Negative) 11/09/23 11:39 Urine Blood Negative (Negative) 11/09/23 11:39 Urine Nitrate Negative (Negative) 11/09/23 11:39 Urine Bilirubin Negative (Negative) 11/09/23 11:39 Urine Urobilinogen 1.0 mg/dL (Negative) 11/09/23 11:39 Ur Leukocyte Esterase 2+ (Negative) A 11/09/23 11:39 Urine RBC 3-5 /hpf (0-2) 11/09/23 11:39 Urine WBC 51-100 /hpf (0-5) H 11/09/23 11:39 Ur Squamous Epith Cells 0-5 /hpf (0-5) 11/09/23 11:39 Amorphous Sediment Not Reportable 11/09/23 11:39 Urine Bacteria Trace /hpf (NONE) 11/09/23 11:39 Hyaline Casts 2.87 /lpf 11/09/23 11:39 Urine Opiates Screen Positive ng/mL (Negative) H 11/09/23 11:39 Ur Barbiturates Screen Negative ng/mL (Negative) 11/09/23 11:39 Ur Phencyclidine Scrn Negative ng/mL (Negative) 11/09/23 11:39 Ur Amphetamines Screen Negative ng/mL (Negative) 11/09/23 11:39 U Benzodiazepines Scrn Negative ng/mL (Negative) 11/09/23 11:39 Urine Cocaine Screen Negative ng/mL (Negative) 11/09/23 11:39 U Marijuana (THC) Screen Negative ng/mL (Negative) 11/09/23 11:39 All radiology interpretation(s) finalized by discharge Discharge Plan Discharge Patient Disposition: Home Clinical Impression: Migraine variant Condition: Stable Prescriptions: New Depakote ER 500 mg tablet extended release 24 hr 500 mg PO DAILY Qty: 30 0RF cefdinir 300 mg capsule 300 mg PO BID Qty: 14 0RF No Action duloxetine 60 mg capsule,delayed release(DR/EC) 60 mg PO BEDTIME Qty: 90 3RF hydrocodone-acetaminophen 10-325 mg tablet 1 tab PO Q6H PRN (Reason: Pain) 30 Days Qty: 120 0RF Prolia 60 mg/mL Syringe See Rx Instructions .ROUTE .COMPLEX Rx Instructions: 60 mg subcutaneously EVERY SIX MONTHS Salt Tabs 5 mg PO BID aspirin 81 mg Tablet,Delayed Release (Dr/Ec) 81 mg PO DAILY Qty: 30 0RF atorvastatin 40 mg Tablet 80 mg PO BEDTIME Qty: 60 0RF gabapentin [Neurontin] 100 mg capsule 100 mg PO TID Qty: 90 0RF levothyroxine 100 mcg capsule 100 mcg PO DAILY Qty: 30 0RF clopidogrel 75 mg tablet 75 mg PO DAILY Discharge Orders: Discharge ED (Routine); Ordered 11/09/23 Ordered By: Yovanny Abrams Referrals: Andrea Gaona MD [Primary Care Provider] - Discharge Diet: Usual diet Discharge Activity: Resume usual activity Patient Instructions: Opioid Safety, Pain Management Activity Restrictions/Additional Instructions: Thank you for choosing [facility] for your healthcare needs today. It is very important that you follow up as instructed or that you return to the Emergency Department should you have concerns or if your condition changes or worsens in any way. You were seen in the emergency room for neurologic symptoms. CT of your head did not show any acute changes neurology was consulted they felt your symptoms were secondary to migraine variant. They recommend to start on Depakote 500 mg extended release once daily. During the course of the workup it was also noted that you have a bladder infection you were given a dose of Rocephin in the emergency room started on cefdinir 500 mg 1 tablet twice a day for 1 week beginning tomorrow. Follow-up with Dr. Lopez in her office as scheduled. Coding Level of Care Code ED Application Operations Engineer for Joel Harden
[2023-11-09 11:28] LABS: Glucose Point of Care 90 mg/dL (70-110)
[2023-11-09 11:35] LABS: Basophils % 0.6 %; Eosinophils # 0.1 10^3/uL (0.0-0.8); Eosinophils % 1.1 %; Hematocrit 37.5 % (36-47); Lymphocytes # 1.2 10^3/uL (0.8-4.8); Lymphocytes % 26.2 %; Mean Corpuscular HGB Conc 32.3 g/dL (30-55); Mean Corpuscular Volume 99.2 fl (85-98); Mean Platelet Volume 10.7 fL (7.4-10.4); Monocytes # 0.5 10^3/uL (0.2-0.9); Monocytes % 10.1 %; Neutrophils # 2.71 10^3/uL (1.8-7.7); Neutrophils % 57.3 %; Nucleated Red Blood Cells % 0 %; Platelet Count 212 10^3/cmm (157-399); Red Blood Count 3.78 10^6/uL (3.85-5.65); Red Cell Distribution Width 13.2 % (12.1-15.1); White Blood Count 4.73 10^3/uL (3.29-11.43)
[2023-11-09 11:50] LABS: INR 0.99 (0.8-1.2)
[2023-11-09 11:51] LABS: Partial Thromboplastin Time 30.8 SECONDS (23.9-36.7)
[2023-11-09 11:53] LABS: Alanine Aminotransferase 9 U/L (0-33); Alkaline Phosphatase 74 U/L (35-105); Anion Gap 12.8 (5-19); Aspartate Amino Transferase 15 U/L (0-32); Blood Urea Nitrogen 16 mg/dL (8-23); Calcium 9.5 mg/dL (8.5-10.5); Carbon Dioxide 27 mmol/L (22-29); Chloride 103 mmol/L (98-107); Creatinine Clr Calc Pharmacy 58.5255; Globulin 2.4 g/dL (1.3-4.6); Glucose 102 mg/dL (65-115); Osmolality Calculated 289 mOsm/kg (285-295); Potassium 3.8 mmol/L (3.5-5.1); Sodium 139 mmol/L (136-145); Total Bilirubin 0.6 mg/dL (0.15-1.2); Total Protein 6.4 g/dL (6.6-8.7)
[2023-11-09 12:51] LABS: Bilirubin Urine Negative (Negative); Blood Urine Negative (Negative); Glucose Urine UA Negative (Normal); Ketones Urine Negative (Negative); Leukocyte Esterase Urine 2+ (Negative); Nitrate Urine Negative (Negative); Protein Urine Trace (Negative); Specific Gravity, Urine 1.023 (1.005-1.030); Urine Appearance Cloudy (CLEAR); Urine Color Yellow (Yellow)
[2023-11-09 12:54] LABS: Add Urine Microscopic? YES; Bacteria Urine Trace /hpf; Hyaline Casts Urine 2.87 /lpf; Squamous Epithelial Cell Urine 0-5 /hpf (0-5); WBC Urine 51-100 /hpf (0-5)
[2023-11-09 12:58] LABS: Add Urine Culture? Yes
[2023-11-09 12:59] LABS: Amphetamines Screen Urine Negative (Negative); Barbiturates Screen Urine Negative (Negative); Benzodiazepines Screen Urine Negative (Negative); Cocaine Screen Urine Negative (Negative); Opiate Screen Urine Positive (Negative); PCP Screen Urine Negative (Negative); THC Screen Urine Negative (Negative)
[2023-11-09] MEDS: hyDRALAzine 20 mg/mL INJ 1 mL IVP (13:06)
[2023-11-09] MEDS: lidocaine 2% viscous 15 ML, aluminum-mag hydrox-simethicon 30 ML, sucralfate oral liq 1 GM PO (13:50)
[2023-11-09] MEDS: LORazepam 2 mg/mL INJ 1 mL 1 MG IVP (14:03)
[2023-11-09] MEDS: cefTRIAXone 1,000 mg SDV 1000 MG IVP (14:14)
[2023-11-09] MEDS: phenazopyridine 100 mg Tablet 200 MG PO (14:14)
--- NOTE | 2023-11-09 14:17 | PC.NURSE ---
Addendum entered by Korin Benito RN 11/09/23 14:19: approx @3099. respirations labored at time of assessment Original Note: pt family member presents to nurse's station stating pt is having difficulty breathing, this nurse assessed pt airway, oxygen saturation. airway appears patent, oxygen sat 98% on room air, Dr. Abrams notified; see MAR for Ativan admin.
--- NOTE | 2023-11-09 14:19 | PC.NURSE ---
@1412 pt states feeling better, respirations even and unlabored at this time. oxygen saturation 95% on room air.
--- NOTE | 2023-11-09 18:56 | PM.SAN ---
Stroke Alert Activation ED Arrival Date: 11/09/23 ED Arrival Time: 11:10 ED Physican at Bedside: 11:11 Last Known Normal/at Baseline: 1-2 hours ago Other Last Known Well Infomation: She was in the living room talking with her daughter when she developed numbness on the right side of her face. Her saw the right side of her face droop. Her daughter walked her to the car and they brought her to the emergency room. A stroke alert was called. She was taken straight to the CAT scan after evaluation by Dr. Abrams, who found a 0 stroke scale score. I communicated from the time of the patient's arrival with Dr. Abrams, who asked that I evaluate the patient because her symptoms were recurrent and there was a question that her MRI was abnormal several days ago. I came down to the emergency department, examined the patient, reviewed the imaging studies with Dr. Abrams and then spent a significant amount of time answering questions for the patient, her and her daughter who was on the phone. Ultimately it was my opinion that the patient was probably having a migraine. She has the feeling that she is about to get a migraine. She was able to tell me that the numbness of the right side of the face and the feeling that she is having on her right side is exactly what happened to her when she came to the emergency department on 10/29 and on that day she ended up with a migraine. She probably has a migraine a couple of times a week. Not all of them are severe. She is on duloxetine but that has not helped. She has been on aspirin, clopidogrel and atorvastatin since her previous episode on 10/29. Her says that she has mild word searching but her memory is good. She always talks very softly and that is not new. She presented to this emergency department 10/30/2023 and said that she could not speak. She was tearful. She had no focal motor findings. Code stroke was called and she was seen by Dr. Charles. She was admitted for observation by Dr. Araujo so of course she had an MRI of the brain while she was in-house. That confirmed diffuse white matter changes with the largest lesion showing up on diffusion weighted images due to T2 shine through in the left internal capsule. An event monitor was placed. Echocardiogram 10/31/2023 Normal left ventricular size and systolic function, EF 57%.no regional wall motion abnormalities. Mild left ventricular hypertrophy. Grade I/IV diastolic dysfunction (abnormal relaxation filling pattern), normal to mildly elevated filling pressures. Trace to mild aortic valve regurgitation. Mild tricuspid valve regurgitation. Estimated pulmonary artery peak systolic pressure 28 mmHg There is no pericardial effusion. There are no intracardiac masses. Compared to the study from 06/27/2022, there may not be significant change Dr Chaparro Cortez MD [facility] (Electronically Signed) Final Date: 31 October 2023 Stroke Alert Activation Time: 11:10 Stroke MD @ Bedside Time: 11:11 NIH Stroke Scale Time: 11:45 NIH stroke score NIHSS: Level Of Consciousness - 1a: 0 Level Of Consciousness Questions - 1b: Both Correct Level Of Consciousness Commands - 1c: Both Correct Best Gaze - 2: Normal Visual Martínez - 3: No Visual Loss Facial Palsy - 4: Normal Motor Arm Right - 5: No Drift Motor Arm Left - 5: No Drift Motor Leg Right - 6: No Drift Motor Leg Left - 6: No Drift Limb Ataxia - 7: Absent Sensory - 8: Normal Best Language - 9: No Aphasia Dysarthia - 10: Normal Extinction And Inattention - 11: 0 Score: Total Score: 0 Stroke Alert Data/Treatment Time to CT of Head: 11:11 CT Results Time: 11:25 CT Impression: 1. No evidence of intracranial hemorrhage or mass effect. 2. Small focus of low-attenuation corresponding to the area of suspected subacute ischemia in the LEFT frontal parietal white matter seen on the recent MRI 10/31/2023. This measures 5 to 6 mm 3. No other significant changes or acute findings Notified Yovanny Abrams DO at 11/09/2023 11:25 AM. Dictated By: Mohsen Zavala MD Stroke Risk Factors: hypertension and depression tPA Contraindication: tPA Contraindication: Treatment not indcated tPA Admin Prior to Arrival: No Patient & Family Educated on: Cause of Stroke, Treament Plan and Prognosis Other Patient & Family Education: Migraine related strokelike symptoms discussed. I especially took a long time going over her diffuse white matter changes which I think are the results of her lifetime history of migraine [id number]. She has a long history of chronic migraine that she is accustomed to treating by wearing dark glasses and going to bed. She is on antidepressants without benefit. Plan on treating her with Depacon today and I went over that treatment plan with her. Other Information: She is exhibiting word searching difficulty chronically according to her . Her memory is supposedly good. She is talks very softly. She has a normal neurologic exam including marching at the bedside and her stroke scale score is 0 but I am concerned about her memory and it will need further evaluation as an outpatient. Her history of orthostatic hypotension may be pertinent. She has been taking midodrine and salt tablets for chronic lightheadedness. That will bear further evaluation. The patient needs to be seen in the neurology clinic within a couple of weeks and I asked my staff to make an appointment for her. She was given 500 mg of Depacon IV in the emergency room. She reported to Dorene Benito that she was feeling better. Critical Care Time Critical Care Time: 30 - 74 mins Coding Level of Care Code Acute Code for Joel Fwidris
== END 2023-11-09 16:01 | disposition home or self-care (01) ==
PROVIDERS: Emergency Provider Family Medicine; PCP Family Medicine
DX: G43.809 Other migraine, not intractable, without status migrainosus (principal); Z79.02 Long term (current) use of antithrombotics/antiplatelets; Z79.82 Long term (current) use of aspirin; Z86.73 Personal history of transient ischemic attack (TIA), and cerebral infarction without residual deficits
CPT/HCPCS: 36415; 36416; 70450; 80053; 80306; 81001; 82962; 85025; 85610; 85730; 87040; 87077; 87086; 87186; 93005; 96374; 96375; 99285; J0360; J0696; J2060

== ENCOUNTER 2023-11-12 18:56 | Emergency (ER) | payer MEDICARE, OTHER, SELFPAY ==
[2023-11-12 19:01] VITALS: BP 145/83; PULSE 74; TEMP 36.7; O2SAT 97; BMI 25.0
--- NOTE | 2023-11-12 19:57 | CTR_ITS ---
PROCEDURE INFORMATION: Exam: CT Abdomen And Pelvis With Contrast Exam date and time: 11/12/2023 9:16 PM Age: 78 years old Clinical indication: Abdominal pain; Additional info: Abd pain TECHNIQUE: Imaging protocol: Computed tomography of the abdomen and pelvis with contrast. Radiation optimization: All CT scans at this facility use at least one of these dose optimization techniques: automated exposure control; mA and/or kV adjustment per patient size (includes targeted exams where dose is matched to clinical indication); or iterative reconstruction. Contrast material: OMNI 350; Contrast volume: 100 ml; Contrast route: INTRAVENOUS (IV); COMPARISON: CT abdomen pelvis w con* [id number] 12/11/2022 11:48 PM RADIATION DOSE METRICS: Total DLP (mGy-cm): 799 FINDINGS: Liver: Normal. No mass. Gallbladder and biliary ducts: Normal. No calcified stones. No ductal dilation. Pancreas: Atrophic appearance of the pancreas. No ductal dilatation. Spleen: Normal. No splenomegaly. Adrenal glands: Normal. No mass. Kidneys and ureters: Normal. No hydronephrosis. Stomach and bowel: Scattered colonic diverticula without evidence of acute diverticulitis. Moderate colonic stool. No evidence of bowel obstruction. Appendix: No evidence of appendicitis. Intraperitoneal space: Unremarkable. No free air. No significant fluid collection. Vasculature: Moderate diffuse atherosclerotic calcifications of the abdominal aorta and its branch vessels. No abdominal aortic aneurysm. Lymph nodes: Unremarkable. No enlarged lymph nodes. Urinary bladder: Unremarkable as visualized. Reproductive: Unremarkable as visualized. Bones/joints: Dextroscoliosis of the lumbar spine with multilevel degenerative changes. Redemonstrated healed right superior and inferior pubic rami fractures. No acute fracture. Soft tissues: Small fat containing umbilical hernia. CT/CT abdomen pelvis w con* [id number] IMPRESSION: 1. No acute findings in the abdomen/pelvis. 2. Moderate colonic stool can be seen with constipation. 3. Chronic ancillary findings as above are unchanged.
--- NOTE | 2023-11-12 19:57 | W.ED.FEMALGU ---
HPI - Female Genitourinary General: Chief complaint: Urogenital-Female Stated complaint: Lower abd pain Time Seen by Provider: 11/12/23 19:15 Source: patient Mode of arrival: ambulatory Limitations: no limitations History of Present Illness: 78-year-old female who was seen here 2 days ago was diagnosed UTI she has been on cefdinir states that today she has been having lower abdominal pain she has been a sharp cramping pain that been constant throughout the day she rates the pain a 7 out of 10 states she has had some nausea denies any vomiting she states she is felt tired denies any fevers Associated symptoms: Reports abdominal pain; Deny headache(s) or nausea Related Data Home Medications Medication Instructions Recorded Confirmed denosumab 60 mg/mL subcutaneous See Rx Instructions .Route .COMPLEX 04/07/20 11/09/23 syringe (Prolia) Salt Tabs 5 mg PO BID 08/22/22 11/09/23 clopidogrel 75 mg tablet 75 mg PO DAILY 11/09/23 11/09/23 Previous Rx's Medication Instructions Recorded duloxetine 60 mg capsule,delayed 60 mg PO BEDTIME #90 caps 08/17/23 release hydrocodone 10 mg-acetaminophen 1 tab PO Q6H PRN Pain 30 days #120 10/30/23 325 mg tablet tabs aspirin 81 mg tablet,delayed 81 mg PO DAILY #30 tabs 10/31/23 release atorvastatin 40 mg tablet 80 mg (2 x 40 mg) PO BEDTIME #60 10/31/23 tabs gabapentin 100 mg capsule 100 mg PO TID #90 caps 10/31/23 (Neurontin) levothyroxine 100 mcg capsule 100 mcg PO DAILY #30 caps 10/31/23 cefdinir 300 mg capsule 300 mg PO BID #14 caps 11/09/23 divalproex 500 mg tablet,extended 500 mg PO DAILY #30 tabs 11/09/23 release 24 hr (Depakote ER) hydrocodone 5 mg-acetaminophen 325 1 tab PO Q6H PRN pain #14 tabs 11/12/23 mg tablet ondansetron 4 mg disintegrating 4 mg PO Q6H PRN nausea and 11/12/23 tablet vomiting #14 tabs polyethylene glycol 3350 17 gram 17 g PO DAILY PRN constipation #14 11/12/23 oral powder packet (Miralax) ea Allergies Allergy/AdvReac Type Severity Reaction Status Date / Time No Known Allergies Allergy Verified 11/12/23 19:06 Review of Systems Const: Denies: fever(s), chills, body aches or change in appetite ENMT: Denies: throat pain or dental pain Card: Denies: chest pain Resp: Denies: dyspnea GI: Reports: abdominal pain; Denies: nausea, vomiting or diarrhea Musc: Denies: neck pain or back pain Skin/Breast: Denies: rash Neuro: Denies: headache(s) PFSH ED PFSH: Medical History TIA (transient ischemic attack) Orthostatic hypotension Osteoporosis DO NOT REMOVE, LINKED TO TX PLAN Lung nodule Needs follow-up CT chest yearly for 5 years. Lumbar radiculopathy Scoliosis Macrocytosis Abdominal pain Pneumonia Surgical History History of tibial fracture 2019 - 3 fractures in tibial plateau - [place] Family History Family/Other Alzheimer's dementia Social History Smoking and tobacco/nicotine status: never used tobacco/nicotine Alcohol intake: never Substance/Drug Use: never Marital status: Physical Exam Const: COMMON NORMALS: no acute distress, patient oriented x3 and healthy appearing HENMT: COMMON NORMALS: normocephalic and atraumatic HEAD & SCALP: normocephalic and atraumatic Neck/C-Spine: COMMON NORMALS: full ROM and supple Chest: COMMONS NORMALS: normal inspection of the chest Resp: COMMON NORMALS: normal respiratory effort Cardio: COMMON NORMALS: regular rate, regular rhythm and No murmurs present (Cardio) RATE: regular rate RHYTHM: regular rhythm GI: COMMON NORMALS: Normal to inspection, nondistended, normoactive bowel sounds present, Soft to palpation and no masses PALPATION: Yes Soft to palpation OTHER: lower abd tenderness Extremity: COMMON NORMALS: normal to inspection and full ROM Neuro: COMMON NORMALS: patient oriented x3, moves all extremities and no focal motor deficits Psych: COMMON NORMALS: mental status grossly normal, Normal thought process present and cooperative THOUGHT PROCESS: Normal thought process present Skin: COMMON NORMALS: no rashes or lesions noted and no wounds GENERAL SKIN EXAM: no rashes or lesions noted Course Vital Signs: Vital signs: Vital Signs Temperature 98.1 F 11/12/23 19:01 Pulse Rate 74 11/12/23 19:01 Respiratory Rate 16 11/12/23 21:35 Blood Pressure 162/85 11/12/23 21:31 Pulse Oximetry 97 11/12/23 19:01 Oxygen Delivery Me thod Room Air 11/12/23 19:01 MDM - Female Medical Decision Making Patient presents with abdominal pain she is currently being treated for UTI she is continue her cefdinir is likely causing her pain CT showed no acute findings blood work here is normal she stable for discharge we will prescribe her pain meds nausea meds she has some slight constipation we will prescribe her MiraLAX to take as needed. Follow-up with her PCP return if worsening Medical Records I reviewed the patient's medical records. Lab Data I reviewed the patient's lab results. 11/12/23 20:10 11/12/23 20:10 Radiology Impressions Abdomen/Pelvis CT 11/12/23 19:57 IMPRESSION: 1. No acute findings in the abdomen/pelvis. 2. Moderate colonic stool can be seen with constipation. 3. Chronic ancillary findings as above are unchanged. Laboratory Results WBC 7.03 10^3/uL (3.29-11.43) 11/12/23 20:10 RBC 3.91 10^6/uL (3.85-5.65) 11/12/23 20:10 Hgb 12.70 g/dL (11.27-16.99) 11/12/23 20:10 Hct 38.0 % (36-47) 11/12/23 20:10 MCV 97.2 fl (85-98) 11/12/23 20:10 MCH 32.5 pg (27-33) 11/12/23 20:10 MCHC 33.4 g/dL (30-55) 11/12/23 20:10 RDW 13.1 % (12.1-15.1) 11/12/23 20:10 Plt Count 232 10^3/cmm (157-399) 11/12/23 20:10 MPV 10.3 fL (7.4-10.4) 11/12/23 20:10 Neut % (Auto) 69.4 % 11/12/23 20:10 Lymph % (Auto) 19.1 % 11/12/23 20:10 Cedar % (Auto) 8.5 % 11/12/23 20:10 Eos % (Auto) 0.9 % 11/12/23 20:10 Baso % (Auto) 0.4 % 11/12/23 20:10 Neut # (Auto) 4.88 10^3/uL (1.8-7.7) 11/12/23 20:10 Lymph # (Auto) 1.3 10^3/uL (0.8-4.8) 11/12/23 20:10 Cedar # (Auto) 0.6 10^3/uL (0.2-0.9) 11/12/23 20:10 Eos # (Auto) 0.1 10^3/uL (0.0-0.8) 11/12/23 20:10 Baso # (Auto) 0.0 10^3/uL (0.0-0.1) 11/12/23 20:10 Nucleated RBC % (auto) 0 % 11/12/23 20:10 Nucleated RBCs # 0.0 /100WBC 11/12/23 20:10 Sodium 134 mmol/L (136-145) L 11/12/23 20:10 Potassium 4.2 mmol/L (3.5-5.1) 11/12/23 20:10 Chloride 98 mmol/L (98-107) 11/12/23 20:10 Carbon Dioxide 26 mmol/L (22-29) 11/12/23 20:10 Anion Gap 14.2 (5-19) 11/12/23 20:10 BUN 13 mg/dL (8-23) 11/12/23 20:10 Creatinine 0.9 mg/dL (0.5-0.9) 11/12/23 20:10 GFR Calculation Not Reportable 11/12/23 20:10 Glucose 106 mg/dL (65-115) 11/12/23 20:10 Calculated Osmolality 279 mOsm/kg (285-295) L 11/12/23 20:10 Calcium 9.5 mg/dL (8.5-10.5) 11/12/23 20:10 Total Bilirubin 0.4 mg/dL (0.15-1.2) 11/12/23 20:10 AST 15 U/L (0-32) 11/12/23 20:10 ALT 11 U/L (0-33) 11/12/23 20:10 Alkaline Phosphatase 74 U/L (35-105) 11/12/23 20:10 Total Protein 6.5 g/dL (6.6-8.7) L 11/12/23 20:10 Albumin 4.0 g/dL (3.5-5.2) 11/12/23 20:10 Globulin 2.5 g/dL (1.3-4.6) 11/12/23 20:10 Lipase 20 U/L (13-60) 11/12/23 20:10 All radiology interpretation(s) finalized by discharge Discharge Plan Discharge Patient Disposition: Home Clinical Impression: Urinary tract infection, Abdominal pain Condition: Stable Prescriptions: New hydrocodone-acetaminophen 5-325 mg tablet 1 tab PO Q6H PRN (Reason: pain) Qty: 14 0RF ondansetron 4 mg tablet,disintegrating 4 mg PO Q6H PRN (Reason: nausea and vomiting) Qty: 14 0RF Miralax 17 gram powder in packet 17 g PO DAILY PRN (Reason: constipation) Qty: 14 0RF No Action duloxetine 60 mg capsule,delayed release(DR/EC) 60 mg PO BEDTIME Qty: 90 3RF hydrocodone-acetaminophen 10-325 mg tablet 1 tab PO Q6H PRN (Reason: Pain) 30 Days Qty: 120 0RF Prolia 60 mg/mL Syringe See Rx Instructions .ROUTE .COMPLEX Rx Instructions: 60 mg subcutaneously EVERY SIX MONTHS Salt Tabs 5 mg PO BID aspirin 81 mg Tablet,Delayed Release (Dr/Ec) 81 mg PO DAILY Qty: 30 0RF atorvastatin 40 mg Tablet 80 mg PO BEDTIME Qty: 60 0RF gabapentin [Neurontin] 100 mg capsule 100 mg PO TID Qty: 90 0RF levothyroxine 100 mcg capsule 100 mcg PO DAILY Qty: 30 0RF clopidogrel 75 mg tablet 75 mg PO DAILY Depakote ER 500 mg tablet extended release 24 hr 500 mg PO DAILY Qty: 30 0RF cefdinir 300 mg capsule 300 mg PO BID Qty: 14 0RF Discharge Orders: Discharge ED (Routine); Ordered 11/12/23 Ordered By: Korby Ethel Referrals: Andrea Gaona MD [Primary Care Provider] - 4-7 days Discharge Diet: Advance as tolerated Discharge Activity: Resume usual activity Patient Instructions: Abdominal Pain (ED), Opioid Safety Coding Level of Care Code ED Medical Billing And Coding Specialist for Joel Harden
[2023-11-12 20:23] LABS: Basophils % 0.4 %; Eosinophils # 0.1 10^3/uL (0.0-0.8); Eosinophils % 0.9 %; Lymphocytes # 1.3 10^3/uL (0.8-4.8); Lymphocytes % 19.1 %; Mean Corpuscular HGB Conc 33.4 g/dL (30-55); Mean Corpuscular Hemoglobin 32.5 pg (27-33); Mean Corpuscular Volume 97.2 fl (85-98); Mean Platelet Volume 10.3 fL (7.4-10.4); Monocytes # 0.6 10^3/uL (0.2-0.9); Monocytes % 8.5 %; Neutrophils # 4.88 10^3/uL (1.8-7.7); Neutrophils % 69.4 %; Nucleated Red Blood Cells % 0 %; Platelet Count 232 10^3/cmm (157-399); Red Blood Count 3.91 10^6/uL (3.85-5.65); Red Cell Distribution Width 13.1 % (12.1-15.1); White Blood Count 7.03 10^3/uL (3.29-11.43)
[2023-11-12 20:47] LABS: Alanine Aminotransferase 11 U/L (0-33); Alkaline Phosphatase 74 U/L (35-105); Anion Gap 14.2 (5-19); Aspartate Amino Transferase 15 U/L (0-32); Blood Urea Nitrogen 13 mg/dL (8-23); Calcium 9.5 mg/dL (8.5-10.5); Carbon Dioxide 26 mmol/L (22-29); Chloride 98 mmol/L (98-107); Creatinine Clr Calc Pharmacy 54.6323; Globulin 2.5 g/dL (1.3-4.6); Glucose 106 mg/dL (65-115); Lipase 20 U/L (13-60); Osmolality Calculated 279 mOsm/kg (285-295); Potassium 4.2 mmol/L (3.5-5.1); Sodium 134 mmol/L (136-145); Total Bilirubin 0.4 mg/dL (0.15-1.2); Total Protein 6.5 g/dL (6.6-8.7)
[2023-11-12] MEDS: iohexol 350 mg/mL 500 mL Btl (per mL) IV (21:21)
[2023-11-12 21:31] VITALS: BP 162/85
[2023-11-12 21:35] VITALS: RESP 16
[2023-11-12] MEDS: morphine 4 mg/mL SDV 1 mL IVP (21:35)
[2023-11-12] MEDS: ondansetron 2 mg/ML SDV 2 mL 4 MG IVP (21:35)
[2023-11-12] MEDS: hyDRALAzine 20 mg/mL INJ 1 mL 10 MG IVP (21:37)
[2023-11-12] MEDS: HYDROcodone-acetaminophen 5-325 mg Tablet 1 TAB PO (22:15)
[2023-11-12 22:16] VITALS: BP 123/88; PULSE 72; O2SAT 98
== END 2023-11-12 22:29 | disposition home or self-care (01) ==
PROVIDERS: Emergency Provider Emergency Medicine; PCP Family Medicine
DX: N39.0 Urinary tract infection, site not specified (principal); K59.00 Constipation, unspecified
CPT/HCPCS: 74177; 80053; 83690; 85025; 96374; 96375; 99285; J0360; J2270; J2405

== ENCOUNTER 2023-11-27 13:58 | Oncology outpatient (recurring) (ONCR) | payer MEDICARE, OTHER, SELFPAY ==
[2023-11-27] MEDS: denosumab 60 mg SDV SUBCUT (14:09)
== END 2023-12-13 23:59 | disposition home or self-care (01) ==
LOC: ONCMED 13:59
PROVIDERS: PCP Family Medicine; Visit Provider Family Medicine
DX: M81.0 Age-related osteoporosis without current pathological fracture (principal); Z79.899 Other long term (current) drug therapy
CPT/HCPCS: 96372; J0897

== ENCOUNTER → 2023-12-17 12:25 | Outpatient (BNVA) | payer MEDICARE, OTHER, SELFPAY | PROVIDERS: PCP Family Medicine; Visit Provider Family Medicine | DX: R30.0 Dysuria (principal) | CPT/HCPCS: 87086 ==

== ENCOUNTER 2024-02-21 08:02 | Outpatient (CLI) | payer MEDICARE, OTHER, SELFPAY ==
[2024-02-21 09:43] LABS: Bilirubin Urine Negative (Negative); Blood Urine Negative (Negative); Glucose Urine UA Negative (Normal); Ketones Urine Trace (Negative); Leukocyte Esterase Urine 1+ (Negative); Nitrate Urine Negative (Negative); Protein Urine Negative (Negative); Urine Appearance Clear (CLEAR); Urine Color Yellow (Yellow)
[2024-02-21 09:49] LABS: Add Urine Microscopic? YES; Bacteria Urine None Seen /hpf; Hyaline Casts Urine 14.47 /lpf; Squamous Epithelial Cell Urine 0-5 /hpf (0-5)
[2024-02-21 10:06] LABS: Add Urine Culture? No; UA Slide Review UA Slide Review Perf
[2024-02-21 10:08] LABS: Calcium Oxalate Crystals Urine 15-25 /hpf; Mucus Urine 1+ /hpf
== END 2024-02-21 08:03 | disposition home or self-care (01) ==
LOC: LAB 08:04
PROVIDERS: PCP Family Medicine; Visit Provider Family Medicine
DX: R30.0 Dysuria (principal); N39.0 Urinary tract infection, site not specified
CPT/HCPCS: 81001; 87086

== ENCOUNTER 2024-03-19 13:55 | Emergency (ER) | payer MEDICARE, OTHER, SELFPAY ==
[2024-03-19 14:05] VITALS: BP 169/81; PULSE 73; RESP 17; TEMP 36.4; O2SAT 98; BMI 25.8
--- NOTE | 2024-03-19 14:14 | CT_ITS ---
WS: [id number] CT HEAD NONCONTRAST HISTORY: fall TECHNIQUE: Contiguous axial imaging performed through the brain. Bone and soft tissue windows. Sagittal and coronal reformats reviewed. All CT scans at [facility] use at least one of these dose optimization techniques: automated exposure control; mA and/or kV adjustment per patient size (includes targeted exams where dose is matched to clinical indication); or iterative reconstruction. DLP: 1721.13 mGy.cm COMPARISON: 11/09/2023 No acute intracranial hemorrhage, midline shift or mass effect. Moderate small vessel disease in parenchymal volume loss. Small bilateral lacunar infarcts in the basal ganglia. Moderate cerebellar atrophy. Ventricles: Normal size with no hydrocephalus. Paranasal sinuses: As visualized are clear. Mastoid air cells: Well pneumatized. Calvarium and scalp: Large acute cephalohematoma. Large amount of acute blood products in the subperiosteal space but also extending through the laceration site centered along the posterior RIGHT parietal bone. Large hematoma measures at least 9.0 x 9.6 cm. No skull fracture. CT/CT head wo con* [id number] IMPRESSION: 1. No acute intracranial hemorrhage or edema. 2. Moderate small vessel disease and parenchymal volume loss with lacunar infa rcts in the basal ganglia, unchanged. 3. Large cephalohematoma with extension into the scalp centered over the RIGHT parietal vertex. Acute blood products with scattered air and laceration throug hout the laceration and hematoma. Ongoing bleeding is likely. The acute hematom a measures 9.0 x 9.6 cm. 4. No skull fracture. Notified Rosa Davenport MD at 03/19/2024 3:17 PM.
--- NOTE | 2024-03-19 14:14 | CT_ITS ---
WS: [id number] CT CERVICAL SPINE HISTORY: fall TECHNIQUE: Contiguous 2.0 mm axial imaging performed through the entire cervical spine. Sagittal and coronal reformats also performed. All CT scans at [facility] use at least one of these dose optimization techniques: automated exposure control; mA and/or kV adjustment per patient size (includes targeted exams where dose is matched to clinical indication); or iterative reconstruction. DLP: 1721.13 mGy.cm COMPARISON: None available. Reversal of the normal cervical lordosis centered at C6. Severe degenerative disc space narrowing at C5-6 and C6-7. No acute fractures are identified. There is very slight subluxation involving the C5-6 and C6-7 facets. Very slight asymmetric separation compared to the adjacent levels. Near similar findings were seen on the prior CT from 10/30/2023. The slight subluxation may be exacerbated due to position of the neck. Lateral masses of C1 and C2 are aligned. The odontoid is intact. Bilateral facet joint arthritis and osteophytic ridging contributing to multilevel areas of central and foraminal stenosis. CT/CT cervical spin wo con* [id number] IMPRESSION: 1. No acute cervical spine fracture identified. 2. Very minimal asymmetric widening of the facet joints at C5-6 and C6-7. Near similar findings on 10/30/2023. If the patient is describing neck pain MRI may be necessary to exclude ligamentous injury. 3. Multilevel areas of facet joint arthropathy and osteophytic ridging.
--- NOTE | 2024-03-19 14:16 | ED_ITS ---
HPI - Fall General: Chief Complaint: Fall Stated Complaint: fall / head wound Time Seen by Provider: 03/19/24 14:11 Source: patient Mode of arrival: ambulatory Limitations: no limitations History of Present Illness: 78-year-old female who states she was wa lking up stairs and then fell backwards. She states she did hit her head when she fell she does have a small laceration to posterior scalp she has a headache denies loss consciousness some slight neck pain denies any other injuries from the fall. She has been able to ambulate since then. Associated symptoms-after fall: Reports headache(s); Denies abdominal pain, chest pain or neck pain Related Data Home Medications ?Medication ?Instructions ?Recorded ?Confirmed denosumab 60 mg/mL subcutaneous See Rx Instructions .R oute .COMPLEX 04/07/20 03/19/24 syringe (Prolia) gabapentin 300 mg capsule 300 mg PO TID 03/19/2403/19 Previous Rx's ?Medication ?Instructions ?Recorded duloxetine 60 mg capsule,delayed 60 mg PO BEDTIME #90 caps 08/17/23 release aspirin 81 mg tablet,delayed 81 mg PO DAILY #30 tabs 0 10/31/23 release divalproex 500 mg tablet,extended 500 mg PO DAILY #30 tabs 11/09/23 release 24 hr (Depakote ER) midodrine 5 mg tablet 5 mg PO TID PRN LOW BLOOD TX ESSURE 11/14/23 #90 tabs atorvastatin 80 mg tablet 80 mg PO BEDTIME #90 tabs levothyroxine 100 mcg tablet 100 mcg PO DAILY #90 tabs 11/29/23 clopidogrel 75 mg tablet 75 mg PO DAILY #90 tabs 12/13 06/05 hydrocodone 10 mg-acetaminophen 1 tab PO Q6H PRN Pain 30 days #120 01/29/24 325 mg tablet tabs Allergies Allergy/AdvReac Type Severity Reaction Status Date / Time No Known Allergies Allergy Verified 03/19/24 14:09 Review of Systems Const: Denies: fever(s), chills, body aches or change in appetite ENMT: Denies: throat pain or dental pain Card: Denies: chest pain Resp: Denies: dyspnea GI: Denies: abdominal pain, nausea, vomiting or diarrhea Musc: Denies: neck pain or back pain Skin/Breast: Denies: rash Neuro: Reports: headache(s) [facility] PFSH: Medical History TIA (transient ischemic attack) Orthostatic hypotension Osteoporosis DO NOT REMOVE, LINKED TO TX PLAN Lung nodule Needs follow-up CT chest yearly for 5 years. Lumbar radiculopathy Scoliosis Macrocytosis Abdominal pain Pneumonia Surgical History History of tibial fracture 2019 - 3 fractures in tibial plateau - [place] Family History Family/Other Alzheimer's dementia Social History Smoking and tobacco/nicotine status: never used tobacco/nicotine Alcohol intake: never Substance/Drug Use: never Marital status: Physical Exam Const: COMMON NORMALS: no acute distress, patient oriented x3 and healthy appearing HENMT: OTHER: 1cm post scalp laceration Eye: COMMON NORMALS: Equal, round and reactive pupils present and EOMs intact bilaterally PUPIL: Yes Equal, round and reactive pupils present Neck/C-Spine: COMMON NORMALS: full ROM and supple Chest: COMMONS NORMALS: normal inspection of the chest and normal palpation of entire chest wall Resp: COMMON NORMALS: normal respiratory effort, No retractions, No use of accessory muscles and clear to auscultation bilaterally AUSCULTATION: clear to auscultation bilaterally Cardio: COMMON NORMALS: regular rate, regular rhythm and No murmurs present (Cardio) RATE: regular rate RHYTHM: regular rhythm GI: COMMON NORMALS: Normal to inspection, nondistended, normoactive bowel sounds present, Soft to palpation, non-tender and no masses PALPATION: Yes Soft to palpation Extremity: COMMON NORMALS: normal to inspection and full ROM Neuro: COMMON NORMALS: patient oriented x3, moves all extremities and no focal motor deficits Psych: COMMON NORMALS: mental status grossly normal, Normal thought process present and cooperative THOUGHT PROCESS: Normal thought process present Skin: COMMON NORMALS: no rashes or lesions noted and no wounds GENERAL SKIN EXAM: no rashes or lesions noted Procedures Laceration Laceration 1: Site: scalp Size (cm): 2 Description: linear Depth: simple, single layer Local Anesthetic: lidocaine 1% Amount of anesthesia used (mL): 3 Pre-repair: wound explored and irrigated extensively Skin layer closed with: other (staple) Number of sutures: 2 Laceration 2: Site: scalp Size (cm): 2 Description: linear Depth: simple, single layer Local Anesthetic: lidocaine 1% Amount of anesthesia used (mL): 4 Pre-repair: wound explored and irrigated extensively Skin layer closed with: other (staple) Number of sutures: 2 Course Vital Signs: Vital signs: Vital Signs Temperature 97.6 F 03/19/24 14:05 Pulse Rate 74 03/19/24 14:23 Respiratory Rate 17 03/19/24 14:05 Blood Pressure 174/90 03/19/24 14:23 Pulse Oximetry 96 03/19/24 14:23 Oxygen Delivery Me thod Room Air 03/19/24 14:23 MDM - Fall Medical Decision Making Patient presents. Head laceration injury from a fall CT showed no intracranial hemorrhage she feels improved here she has no neck pain did staple her wound she is stable for discharge georgette removed in 1 week return if worsening she understands agrees to plan Medical Records I reviewed the patient's medical records. Lab Data Radiology Impressions Cervical Spine CT 03/19/24 14:14 IMPRESSION: 1. No acute cervical spine fracture identified. 2. Very minimal asymmetric widening of the facet joints at C5-6 and C6-7. Near similar findings on 10/30/2023. If the patient is describing neck pain MRI may be necessary to exclude ligamentous injury. 3. Multilevel areas of facet joint arthropathy and osteophytic ridging. Head CT 03/19/24 14:14 IMPRESSION: 1. No acute intracranial hemorrhage or edema. 2. Moderate small vessel disease and parenchymal volume loss with lacunar infarcts in the basal ganglia, unchanged. 3. Large cephalohematoma with extension into the scalp centered over the RIGHT parietal vertex. Acute blood products with scattered air and laceration throughout the laceration and hematoma. Ongoing bleeding is likely. The acute hematoma measures 9.0 x 9.6 cm. 4. No skull fracture. Notified Rosa Davenport MD at 03/19/2024 3:17 PM. All radiology interpretation(s) finalized by discharge Discharge Plan Discharge Patient Disposition: Home Clinical Impression: Head injury, Laceration Condition: Stable Prescriptions: No Action duloxetine 60 mg capsule,delayed release(DR/EC) 60 mg PO BEDTIME Qty: 90 3RF midodrine 5 mg tablet 5 mg PO TID PRN (Reason: LOW BLOOD PRESSURE) Qty: 90 6RF levothyroxine 100 mcg tablet 100 mcg PO DAILY Qty: 90 3RF atorvastatin 80 mg tablet 80 mg PO BEDTIME Qty: 90 3RF clopidogrel 75 mg tablet 75 mg PO DAILY Qty: 90 3RF hydrocodone-acetaminophen 10-325 mg tablet 1 tab PO Q6H PRN (Reason: Pain) 30 Days Qty: 120 0RF Prolia 60 mg/mL Syringe See Rx Instructions .ROUTE .COMPLEX Rx Instructions: 60 mg subcutaneously EVERY SIX MONTHS aspirin 81 mg Tablet,Delayed Release (Dr/Ec) 81 mg PO DAILY Qty: 30 0RF divalproex [Depakote ER] 500 mg tablet extended release 24 hr 500 mg PO DAILY Qty: 30 0RF gabapentin 300 mg capsule 300 mg PO TID Rx Instructions: TAKE 1 CAPSULE BY MOUTH THREE TIMES DAILY Discharge Orders: Discharge ED (Routine); Ordered 03/19/24 Ordered By: Rosa Davenport Referrals: Andrea Gaona MD [Primary Care Provider] - Discharge Diet: Advance as tolerated Discharge Activity: Resume usual activity Patient Instructions: Laceration (ED), Head Injury (ED), Staple Care (ED) Activity Restrictions/Additional Instructions: staple removal in 7 days Print Language: Lithuanian Coding Level of Care Code ED Center Human Resources Manager for Joel Harden
[2024-03-19 14:23] VITALS: BP 174/90; PULSE 74; O2SAT 96
[2024-03-19 15:43] VITALS: BP 170/99; PULSE 62; O2SAT 93
== END 2024-03-19 15:49 | disposition home or self-care (01) ==
PROVIDERS: Emergency Provider Emergency Medicine; PCP Family Medicine
DX: S01.01XA Laceration without foreign body of scalp, initial encounter (principal); S09.90XA Unspecified injury of head, initial encounter; Z79.82 Long term (current) use of aspirin; Z86.73 Personal history of transient ischemic attack (TIA), and cerebral infarction without residual deficits; W19.XXXA Unspecified fall, initial encounter
CPT/HCPCS: 12001; 70450; 72125; 99284

== ENCOUNTER 2024-05-27 13:52 | Oncology outpatient (recurring) (ONCR) | payer MEDICARE, OTHER, SELFPAY ==
[2024-05-27] MEDS: denosumab 60 mg SDV SUBCUT (14:17)
== END 2024-06-11 23:59 | disposition home or self-care (01) ==
LOC: ONCMED 13:53
PROVIDERS: PCP Family Medicine; Visit Provider Family Medicine
DX: M81.0 Age-related osteoporosis without current pathological fracture (principal); Z79.899 Other long term (current) drug therapy
CPT/HCPCS: 96372; J0897

== ENCOUNTER 2024-06-03 12:45 | Outpatient (CLI) | payer MEDICARE, OTHER, SELFPAY ==
--- NOTE | 2024-06-03 12:47 | XR_ITS ---
WS: [id number] SCREENING DEXA SCAN [facility] CLINICAL INFORMATION: AGE RELATED OSTEOPOROSIS W/O CURRENT FX COMPARISON: 06/02/2022 FINDINGS: The L1-L4 bone mineral density measures 1.349 g/cm2. This corresponds to a T score score of 1.4 and Z score of 2.8. Left femoral neck bone mineral density measures 0.783 g/cm2. This corresponds to a T score of -1.8 and Z score of -0.1. Right femoral neck bone mineral density measures 0.821 g/cm2. This corresponds to a T score -1.5of and Z score of 0.2. Mean femoral neck bone mineral density measures 0.802 g/cm2. This corresponds to a T score of -1.6 and Z score of 0.1. XR/XR DEXA axial skeleton* [id number] IMPRESSION: Normal bone mineralization lumbar spine. Osteopenia femoral necks. Patient's FRAX calculated 10 year probability for major osteoporotic fracture i s 20.8% and osteoporotic hip fracture is 4.9%.
== END 2024-06-03 12:46 | disposition home or self-care (01) ==
PROVIDERS: PCP Family Medicine; Visit Provider Nurse Practitioner
DX: M81.0 Age-related osteoporosis without current pathological fracture (principal); M85.88 Other specified disorders of bone density and structure, other site
CPT/HCPCS: 77080

== ENCOUNTER 2024-06-12 13:24 | Oncology outpatient (recurring) (ONCR) | payer MEDICARE, OTHER, SELFPAY ==
--- NOTE | 2024-06-12 13:29 | MM_ITS ---
WS: [id number] BILATERAL 3D TOMOSYNTHESIS DIGITAL SCREENING MAMMOGRAPHY WITH CAD CLINICAL INFORMATION: SCREENING HISTORY: Screening mammogram. No current complaints. COMPARISON: 2023 TECHNIQUE: Bilateral CC and MLO views. FINDINGS: Scattered fibroglandular densities bilaterally. No suspicious focal mass, asymmetry, calcifications, or architectural distortion. No evidence of malignancy. Vascular calcification. Punctate and lucent centered calcifications. MM/MM scr tomosynthesis [id number] IMPRESSION: DENSITY: There are scattered areas of fibroglandular density. BI-RADS: 2 - Benign. FOLLOW UP: 1 Year Follow-up Recommend return to annual screening mammography.
== END 2024-07-12 23:59 | disposition home or self-care (01) ==
LOC: RAD 13:25 → ONCMED 06-13 08:41
PROVIDERS: PCP Family Medicine; Visit Provider Family Medicine
DX: Z12.39 Encounter for other screening for malignant neoplasm of breast (principal); R92.323 Mammographic fibroglandular density, bilateral breasts
CPT/HCPCS: 77063; 77067

== ENCOUNTER 2024-06-22 18:38 | Inpatient (IN) | payer MEDICARE, OTHER, SELFPAY ==
[2024-06-22 18:43] VITALS: BP 134/87; PULSE 94; RESP 16; TEMP 38.3; O2SAT 94; BMI 25.8
--- NOTE | 2024-06-22 18:44 | ECG_ITS ---
[facility]: [facility]24-[facility]22 Pat Name: Gabrielle Li Department: Room: ICU11 Gender: Female Sports Management Intern: : 1945 Requested By: Maurice Mendez Order Number: [id number] Naida MD: Chaparro Cortez M.D. Measurements Intervals [place] Rate: 94 P: 56 TX: 183 QRS: 24 QRSD: 85 T: 54 QT: 355 QTc: 445 Interpretive Statements SINUS RHYTHM NONSPECIFIC T-WAVE ABNORMALITY Compared to ECG 11/09/2023 11:34:05 No significant changes Electronically Signed On 06-23-2024 15:20:59 CDT by Chaparro Cortez M.D. [email or web address]
--- NOTE | 2024-06-22 18:49 | XRR_ITS ---
PROCEDURE INFORMATION: Exam: XR Chest Exam date and time: 06/22/2024 7:03 PM Age: 79 years old Clinical indication: Other: Altered mental status; Additional info: AMS TECHNIQUE: Imaging protocol: Radiologic exam of the chest. Views: 1 view. COMPARISON: CR XR chest 1V portable [id number] 30/10/2023 18:00 FINDINGS: Lungs: Large right basilar and perihilar area consolidation consistent with pneumonia. Pleural spaces: No pleural effusion or pneumothorax. Heart/Mediastinum: Normal in size. Bones/joints: No acute fracture is identified. XR/XR chest 1V portable [id number] IMPRESSION: Large right basilar and perihilar area consolidation consistent with pneumonia, such as aspiration related.
--- NOTE | 2024-06-22 18:49 | CTR_ITS ---
PROCEDURE INFORMATION: Exam: CT Head Without Contrast Exam date and time: 06/22/2024 7:23 PM Age: 79 years old Clinical indication: Altered mental status/memory loss; EMS arrival for AMS. Patient with history of dementia with worsening mentation over last two days. Non verbal upon exam. History of CVA. TECHNIQUE: Imaging protocol: Computed tomography of the head without contrast. Radiation optimization: All CT scans at this facility use at least one of these dose optimization techniques: automated exposure control; mA and/or kV adjustment per patient size (includes targeted exams where dose is matched to clinical indication); or iterative reconstruction. COMPARISON: 1. CT head wo con* [id number] 06/13/2024 14:[address] head thrombolytic [id number] 09/11/2023 11:14 RADIATION DOSE METRICS: Total DLP (mGy-cm): 1076.05 FINDINGS: Brain: There is no evidence of intracranial hemorrhage. No mass effect or midline shift. No territorial edema. There are moderate confluent periventricular hypodensities consistent with chronic microischemic changes of white matter. Chronic right basal ganglia lacunar infarct. Bilateral basal ganglia lacunar infarcts no significantly changed from the comparison examinations. Cerebral ventricles: There is moderate volume loss and commensurate ventricular dilatation, consistent with the patient's age. Paranasal sinuses: There are no air-fluid levels. Mastoid air cells: The visualized mastoid air cells are well aerated. Bones: Unremarkable. No acute fracture. Soft tissues: Unremarkable. CT/CT head wo con* [id number] IMPRESSION: 1. No acute cranial findings. 2. Chronic bilateral basal ganglia lacunar infarcts. 3. Moderate cerebral disease. 4. Age-appropriate involutional changes of the brain.
--- NOTE | 2024-06-22 18:53 | ED_ITS ---
HPI - Altered Mental Status 2 General: Chief Complaint: Altered Mental Status Stated Complaint: ams Time Seen by Provider: 06/22/24 18:40 History of Present Illness: 79-year-old female with a history of mil d dementia. She was evidently in her normal state of health until a couple of days ago. She began to deteriorate mental status changes [place] at that point. Currently, she is only alert to person. Family told EMS, that she is usually ANO x 3-4. She has had a temperature. She lost continence. She was found in her bed. No history of trauma. No significant pain complaints. Related Data Home Medications ?Medication ?Instructions ?Recorded ?Confirmed denosumab 60 mg/mL subcutaneous See Rx Instructions .R oute .COMPLEX 04/07/20 03/26/24 syringe (Prolia) gabapentin 300 mg capsule 300 mg PO TID 03/19/2403/26 Previous Rx's ?Medication ?Instructions ?Recorded duloxetine 60 mg capsule,delayed 60 mg PO BEDTIME #90 caps 08/17/23 release aspirin 81 mg tablet,delayed 81 mg PO DAILY #30 tabs 0 10/31/23 release divalproex 500 mg tablet,extended 500 mg PO DAILY #30 tabs 11/09/23 release 24 hr (Depakote ER) midodrine 5 mg tablet 5 mg PO TID PRN LOW BLOOD VT ESSURE 11/14/23 #90 tabs atorvastatin 80 mg tablet 80 mg PO BEDTIME #90 tabs levothyroxine 100 mcg tablet 100 mcg PO DAILY #90 tabs 11/29/23 clopidogrel 75 mg tablet 75 mg PO DAILY #90 tabs 12/13 06/05 hydrocodone 10 mg-acetaminophen 1 tab PO Q6H PRN Pain 30 days #120 06/19/24 325 mg tablet tabs Allergies Allergy/AdvReac Type Severity Reaction Status Date / Time No Known Allergies Allergy Verified 03/19/24 14:09 [facility] ED 2 PFSH: Medical History Pneumonia TIA (transient ischemic attack) Orthostatic hypotension Osteoporosis DO NOT REMOVE, LINKED TO TX PLAN Lung nodule Needs follow-up CT chest yearly for 5 years. Lumbar radiculopathy Scoliosis Macrocytosis Abdominal pain Surgical History History of tibial fracture 2019 - 3 fractures in tibial plateau - [place] Family History Family/Other Alzheimer's dementia Social History Smoking and tobacco/nicotine status: never used tobacco/nicotine Alcohol intake: never Substance/Drug Use: never Marital status: Physical Exam 2 Const: EXAM LIMITATIONS: altered mental status GENERAL APPEARANCE: c ooperative, lethargic and ill appearing ORIENTATION/CONSCIOUSNESS: Yes awake, Yes oriented to person and Yes lethargic; not oriented to place and not oriented to time HENMT: COMMON NORMALS: normocephalic, atraumatic and Normal external nose present HEAD & SCALP: normocephalic and atraumatic FACE & SINUS: normal facial exam and face symmetric NOSE: Normal external nose present Eye: COMMON NORMALS: Equal, round and reactive pupils present and EOMs intact bilaterally PUPIL: Yes Equal, round and reactive pupils present Neck/C-Spine: GENERAL: Yes trachea midline Chest: CHEST: Yes Symmetrical chest wall rise Resp: COMMON NORMALS: normal respiratory effort, No use of accessory muscles and clear to auscultation bilaterally AUSCULTATION: clear to auscultation bilaterally Cardio: COMMON NORMALS: regular rhythm RATE: tachycardic RHYTHM: regular rhythm GI: COMMON NORMALS: Soft to palpation INSPECTION: No abdominal distension PALPATION: Yes Soft to palpation Neuro: SENSORIUM/ORIENTATION: Yes oriented to person, No oriented to place, No oriented to time and Yes lethargic Course 2 Vital Signs: Vital signs: Vital Signs Temperature 97.8 F 06/22/24 23:57 Pulse Rate 97 06/23/24 00:00 Respiratory Rate 24 H 06/23/24 00:00 Blood Pressure 144/105 06/23/24 00:00 Pulse Oximetry 93 06/23/24 00:00 Oxygen Delivery Me thod Nasal Cannula 06/23/24 00:00 Oxygen Flow Rate 3 06/23/24 00:00 MDM - Altered Mental Status Medical Decision Making Patient has a fever of 101. Vitals are otherwise stable here. She is on oxygen. White blood cell count is 23, with 93% neutrophils. She has a large right basilar consolidation on chest x-ray consistent with pneumonia. No acute changes on head CT. BMP is not remarkable. Blood gas testing shows pH of 7.49 with a pCO2 of 36 pO2 of 63. Swabs for viral illness are negative. She will be admitted for consolidative pneumonia with hypoxia and sepsis hospitalist is seeing the patient. Lab Data 06/22/24 19:19 06/22/24 19:19 Radiology Impressions Chest X-Ray 06/22/24 18:49 IMPRESSION: Large right basilar and perihilar area consolidation consistent with pneumonia, such as aspiration related. Head CT 06/22/24 18:49 IMPRESSION: 1. No acute cranial findings. 2. Chronic bilateral basal ganglia lacunar infarcts. 3. Moderate cerebral disease. 4. Age-appropriate involutional changes of the brain. Laboratory Results WBC 23.27 10^3/uL (3.29-11.43) H 06/22/24 19:19 RBC 3.86 10^6/uL (3.85-5.65) 06/22/24 19:19 Hgb 11.80 g/dL (11.27-16.99) 06/22/24 19:19 Hct 36.2 % (36-47) 06/22/24 19:19 MCV 93.8 fl (85-98) 06/22/24 19:19 MCH 30.6 pg (27-33) 06/22/24 19:19 MCHC 32.6 g/dL (30-55) 06/22/24 19:19 RDW 14.7 % (12.1-15.1) 06/22/24 19:19 Plt Count 226 10^3/cmm (157-399) 06/22/24 19:19 MPV 10.6 fL (7.4-10.4) H 06/22/24 19:19 Neut % (Auto) 92.8 % 06/22/24 19:19 Lymph % (Auto) 1.0 % 06/22/24 19:19 [facility] % (Auto) 2.6 % 06/22/24 19:19 Eos % (Auto) 0.3 % 06/22/24 19:19 Baso % (Auto) 0.3 % 06/22/24 19:19 Neut # (Auto) 21.57 10^3/uL (1.8-7.7) H 06/22/24 19:19 Lymph # (Auto) 0.2 10^3/uL (0.8-4.8) L 06/22/24 19:19 [facility] # (Auto) 0.6 10^3/uL (0.2-0.9) 06/22/24 19:19 Eos # (Auto) 0.1 10^3/uL (0.0-0.8) 06/22/24 19:19 Baso # (Auto) 0.1 10^3/uL (0.0-0.1) 06/22/24 19:19 Nucleated RBC % (auto) 0 % 06/22/24 19:19 Nucleated RBCs # 0.0 /100WBC 06/22/24 19:19 PT 14.70 SECONDS (12.1-14.9) 06/22/24 19:19 INR 1.07 (0.8-1.2) 06/22/24 19:19 APTT 30.7 SECONDS (23.9-36.7) 06/22/24 19:19 Specimen Type Arterial 06/22/24 18:49 Sample Site Brachial, left 06/22/24 18:49 ABG pH 7.49 (7.35-7.45) H 06/22/24 18:49 ABG pCO2 36.3 mmHg (35-45) 06/22/24 18:49 ABG pO2 62.8 mmHg (80.0-100.0) L 06/22/24 18:49 ABG HCO3 27.5 mmol/L (22-26) H 06/22/24 18:49 ABG Base Excess 4.1 mmol/L (-2.0-2.0) H 06/22/24 18:49 John Paul Test N/a 06/22/24 18:49 Hematocrit 37.3 % (37-47) 06/22/24 18:49 Hgb O2 Saturation 90.3 % (95-100) L 06/22/24 18:49 Carboxyhemoglobin 1.3 %THgb (0.4-20.1) 06/22/24 18:49 Methemoglobin 1.1 % (0.4-1.5) 06/22/24 18:49 Total Hemoglobin 12.2 g/dL (12-16) 06/22/24 18:49 O2 Delivery Device Nc 06/22/24 18:49 O2 Liters/Min 3.0 % 06/22/24 18:49 Belt Maker Helper ID [id number] 06/22/24 18:49 Sodium 134 mmol/L (136-145) L 06/22/24 19:19 Potassium 3.4 mmol/L (3.5-5.1) L 06/22/24 19:19 Chloride 95 mmol/L (98-107) L 06/22/24 19:19 Carbon Dioxide 25 mmol/L (22-29) 06/22/24 19:19 Anion Gap 17.4 (5-19) 06/22/24 19:19 BUN 20 mg/dL (8-23) 06/22/24 19:19 Creatinine 0.9 mg/dL (0.5-0.9) 06/22/24 19:19 GFR Calculation Not Reportable 06/22/24 19:19 Glucose 107 mg/dL (65-115) 06/22/24 19:19 Calculated Osmolality 281 mOsm/kg (285-295) L 06/22/24 19:19 Lactic Acid 1.9 mmol/L (0.5-2.2) 06/22/24 19:19 Calcium 9.3 mg/dL (8.5-10.5) 06/22/24 19:19 Magnesium 1.1 mg/dL (1.7-2.3) L 06/22/24 19:19 Total Bilirubin 0.9 mg/dL (0.15-1.2) 06/22/24 19:19 AST 34 U/L (0-32) H 06/22/24 19:19 ALT 12 U/L (0-33) 06/22/24 19:19 Alkaline Phosphatase 104 U/L (35-105) 06/22/24 19:19 Creatine Kinase 813 U/L (26-192) H* 06/22/24 19:19 C-Reactive Protein 252.8 mg/L (0.0-4.9) H 06/22/24 19:19 Total Protein 6.5 g/dL (6.6-8.7) L 06/22/24 19:19 Albumin 3.2 g/dL (3.5-5.2) L 06/22/24 19:19 Globulin 3.3 g/dL (1.3-4.6) 06/22/24 19:19 Procalcitonin 1.04 ng/mL (0-0.5) H 06/22/24 19:19 Urine Color Yellow (Yellow) 06/22/24 20:06 Urine Appearance Clear (CLEAR) 06/22/24 20:06 Urine pH 7.0 (5-7) 06/22/24 20:06 Ur Specific [place] 1.016 (1.005-1.030) 06/22/24 20:06 Urine Protein 1+ (Negative) A 06/22/24 20:06 Urine Glucose (UA) Negative (Normal) 06/22/24 20:06 Urine Ketones Negative (Negative) 06/22/24 20:06 Urine Blood Trace (Negative) A 06/22/24 20: Urine Nitrate Negative (Negative) 06/22/24 20: Urine Bilirubin Negative (Negative) 06/22/24 20:06 Urine Urobilinogen 1.0 mg/dL (Negative) 06/22/24 20:06 Ur Leukocyte Esterase Negative (Negative) 06/22/24 20:06 Urine RBC 3-5 /hpf (0-2) 06/22/24 20:06 Urine WBC 0-5 /hpf (0-5) 06/22/24 20:06 Ur Squamous Epith Cells 0-5 /hpf (0-5) 06/22/24 20:06 Amorphous Sediment Not Reportable 06/22/24 20:06 Urine Bacteria None seen /hpf (NONE) 06/22/24 20:06 Hyaline Casts 1.65 /lpf 06/22/24 20:06 Valproic Acid 2.8 ug/mL (50-100) L 06/22/24 19:19 Ethyl Alcohol < 10 mg/dL (0-10) 06/22/24 19:19 Influenza A (PCR) Negative (Negative) 06/22/24 20:13 Influenza Type B (PCR) Negative (Negative) 06/22/24 20:13 RSV (PCR) Negative (Negative) 06/22/24 20:13 SARS-CoV-2 (PCR) Negative (Negative) 06/22/24 20:13 All radiology interpretation(s) finalized by discharge Critical Care Time 2 Critical Care Time: Critical Care Time: Yes Total Critical Care Time: 35 Attestation: This case had a high probability of a clinically significant, sudden, or life threatening deterioration of this patient's condition which required my full and direct attention, intervention and personal management. Time is independent of any procedures performed. Discharge Plan Discharge Patient Disposition: Admitted As Inpatient Admit Provider: Andrea Shaikh Clinical Impression: Sepsis Condition: Stable Coding Level of Care Code ED Underliner for Joel Harden
[2024-06-22 19:26] LABS: Basophils # 0.1 10^3/uL (0.0-0.1); Basophils % 0.3 %; Eosinophils # 0.1 10^3/uL (0.0-0.8); Eosinophils % 0.3 %; Hematocrit 36.2 % (36-47); Lymphocytes # 0.2 10^3/uL (0.8-4.8); Mean Corpuscular HGB Conc 32.6 g/dL (30-55); Mean Corpuscular Hemoglobin 30.6 pg (27-33); Mean Corpuscular Volume 93.8 fl (85-98); Mean Platelet Volume 10.6 fL (7.4-10.4); Monocytes # 0.6 10^3/uL (0.2-0.9); Monocytes % 2.6 %; Neutrophils # 21.57 10^3/uL (1.8-7.7); Neutrophils % 92.8 %; Nucleated Red Blood Cells % 0 %; Platelet Count 226 10^3/cmm (157-399); Red Blood Count 3.86 10^6/uL (3.85-5.65); Red Cell Distribution Width 14.7 % (12.1-15.1); White Blood Count 23.27 10^3/uL (3.29-11.43)
[2024-06-22 19:40] LABS: INR 1.07 (0.8-1.2); Partial Thromboplastin Time 30.7 SECONDS (23.9-36.7)
[2024-06-22 19:43] LABS: ABG PCO2 36.3 mmHg (35-45); ABG PH Result 7.49 (7.35-7.45); Arterial Blood Gas Hematocrit 37.3 % (37-47); Base Excess ABG 4.1 mmol/L (-2.0-2.0); Blood Gas Sample Site Brachial, left; Blood Gas Sample Type Arterial; Carboxyhemoglobin 1.3 %THgb (0.4-20.1); HCO3 ABG 27.5 mmol/L (22-26); HGB O2 Sat 90.3 % (95-100); Methemoglobin 1.1 % (0.4-1.5); Oxygen Device NC; PO2 ABG 62.8 mmHg (80.0-100.0); Total Hemoglobin 12.2 g/dL (12-16)
[2024-06-22 19:44] LABS: Lactic Sepsis W/Reflex 1.9 mmol/L (0.5-2.2); Valproic Acid Level 2.8 ug/mL (50-100)
[2024-06-22 19:45] LABS: Alanine Aminotransferase 12 U/L (0-33); Albumin Level 3.2 g/dL (3.5-5.2); Alkaline Phosphatase 104 U/L (35-105); Anion Gap 17.4 (5-19); Aspartate Amino Transferase 34 U/L (0-32); Blood Urea Nitrogen 20 mg/dL (8-23); C Reactive Protein 252.8 mg/L (0.0-4.9); Calcium 9.3 mg/dL (8.5-10.5); Carbon Dioxide 25 mmol/L (22-29); Chloride 95 mmol/L (98-107); Creatinine Clr Calc Pharmacy 54.4507; Globulin 3.3 g/dL (1.3-4.6); Glucose 107 mg/dL (65-115); Magnesium 1.1 mg/dL (1.7-2.3); Osmolality Calculated 281 mOsm/kg (285-295); Potassium 3.4 mmol/L (3.5-5.1); Sodium 134 mmol/L (136-145); Total Bilirubin 0.9 mg/dL (0.15-1.2); Total Protein 6.5 g/dL (6.6-8.7)
[2024-06-22 19:46] LABS: Alcohol Level < 10 mg/dL (0-10); Creatine Phosphokinase 813 U/L (26-192)
[2024-06-22 19:49] VITALS: BP 135/87; PULSE 87; RESP 16; O2SAT 94
[2024-06-22 20:19] LABS: Bilirubin Urine Negative (Negative); Blood Urine Trace (Negative); Glucose Urine UA Negative (Normal); Ketones Urine Negative (Negative); Leukocyte Esterase Urine Negative (Negative); Nitrate Urine Negative (Negative); Protein Urine 1+ (Negative); Specific Gravity, Urine 1.016 (1.005-1.030); Urine Appearance Clear (CLEAR); Urine Color Yellow (Yellow)
[2024-06-22 20:24] LABS: Add Urine Microscopic? YES; Bacteria Urine None Seen /hpf; Hyaline Casts Urine 1.65 /lpf; Squamous Epithelial Cell Urine 0-5 /hpf (0-5); WBC Urine 0-5 /hpf (0-5)
[2024-06-22] MEDS: sodium chloride 0.9% 2,313.33 ML 2313.33 ML IV (20:37)
[2024-06-22] MEDS: piperacillin-tazobactam 4.5 GM in sodium chloride 0.9% (plus) 50 ML IV (20:40)
[2024-06-22] MEDS: ketorolac 30 mg/mL INJ 15 MG IVP (20:47)
[2024-06-22 20:54] LABS: Influenza A NEGATIVE (Negative); Influenza B NEGATIVE (Negative); Respiratory Syncytial Virus Ce NEGATIVE (Negative); SARS-CoV-2 PCR NEGATIVE (Negative)
--- NOTE | 2024-06-22 21:00 | PM.HP ---
Providers/Chief Complaint Primary Care Provider: Andrea Gaona MD Chief Complaint: ams History of Present Illness Gabrielle Li is a 79 year old female with a past medical history significant for dementia, osteoporosis, orthostatic hypotension, hypothyroidism, stroke, transient ischemic attack, and multiple other comorbidities who presents to the emergency department with severe weakness. Patient seen evaluated emergency department. She is slightly lethargic but awake. Her is bedside and very supportive. He provides much of the collateral information. He notes for the past week she has been sick but there has been a significant worsening in the past 2 days. She has been very confused and generally weak. Oral intake has been very poor. He notes that she has been drinking lots of water which she is typically good about. In the ED, patient found to have right basilar pneumonia. She denies recent known aspiration. She does endorse cough, described as nonproductive. Review of Systems Narrative: A complete review of systems was obtained and is negative except as stated in HPI. Medications/Allergies Home Medications ?Medication ?Instructions ?Recorded ?Confirmed ?Last Taken ?Type denosumab 60 mg/mL subcutaneous See Rx Instructions .Route .COMPLEX 04/07/20 03/26/24 05/24/22 History syringe (Prolia) duloxetine 60 mg capsule,delayed 60 mg PO BEDTIME #90 caps 08/17/23 03/26/24 03/18/24 Rx release aspirin 81 mg tablet,delayed 81 mg PO DAILY #30 tabs 10/31/23 03/26/24 11/08/23 Rx release divalproex 500 mg tablet,extended 500 mg PO DAILY #30 tabs 11/09/23 03/26/24 03/19/24 Rx release 24 hr (Depakote ER) midodrine 5 mg tablet 5 mg PO TID PRN LOW BLOOD PRESSURE 11/14/23 03/26/24 Unknown Rx #90 tabs atorvastatin 80 mg tablet 80 mg PO BEDTIME #90 tabs 11/29/23 03/26/24 03/18/24 Rx levothyroxine 100 mcg tablet 100 mcg PO DAILY #90 tabs 11/29/23 03/26/24 Unknown Rx clopidogrel 75 mg tablet 75 mg PO DAILY #90 tabs 12/27/23 03/26/24 03/19/24 Rx gabapentin 300 mg capsule 300 mg PO TID 03/19/24 03/26/24 03/19/24 History hydrocodone 10 mg-acetaminophen 1 tab PO Q6H PRN Pain 30 days #120 06/19/24 Unknown Rx 325 mg tablet tabs Allergies Allergy/AdvReac Type Severity Reaction Status Date / Time No Known Allergies Allergy Verified 03/19/24 14:09 PFSH Acute PFSH: Medical History Pneumonia TIA (transient ischemic attack) Orthostatic hypotension Osteoporosis DO NOT REMOVE, LINKED TO TX PLAN Lung nodule Needs follow-up CT chest yearly for 5 years. Lumbar radiculopathy Scoliosis Macrocytosis Abdominal pain Surgical History History of tibial fracture 2019 - 3 fractures in tibial plateau - [place] Family History Family/Other Alzheimer's dementia Social History Smoking and tobacco/nicotine status: never used tobacco/nicotine Alcohol intake: never Substance/Drug Use: never Marital status: Vitals/I&O/Wt Last Vital Signs Temp 101 F H 06/22/24 18:43 Pulse 87 06/22/24 19:49 Resp 16 06/22/24 19:49 BP 135/87 06/22/24 19:49 Pulse Ox 94 06/22/24 19:49 O2 Del Method Room Air 06/22/24 19:49 O2 Flow Rate 2 06/22/24 18:43 Weight last 48 hrs Weight 77.111 kg Physical Exam Narrative: General: Patient is awake. Appears fatigued. Febrile. Head: Normocephalic. Atraumatic. EOM intact. Dry mucous membranes. Neck: No JVD. Cardiovascular: RRR. No gallops. No murmurs. Lungs: Right basilar rhonchi. No use of accessory muscles, no crackles or wheezes. Skin: No jaundice. No rashes. Abdomen: Normal bowel sounds, abdomen soft and nontender. Genito Urinary: Genital exam not performed since complaints not related. Rectal: Rectal exam not performed since no symptoms indicated blood loss. Extremities: No cyanosis or clubbing. Musculoskeletal: No swollen or erythematous joints. Neurological: Moves all 4 extremities. No myoclonus. Urinary Catheter Management: Triplett: Cath Placed During This Visit: yes Urinary Catheter Date of Insertion: 06/22/24 Urinary Catheter Time of Insertion: 20:10 Data 06/22/24 19:19 06/22/24 19:19 Micro: Microbiology 06/22/24 19:10 Blood Culture - Preliminary Blood SPECIMEN COLLECTED 06/22/24 19:19 Blood Culture - Preliminary Blood SPECIMEN COLLECTED A&P Assessment and plan (1) Leukocytosis: (2) Hyponatremia: (3) Hypochloremia: (4) Hypokalemia: (5) Hypomagnesemia: (6) Elevated CK: (7) Acute metabolic encephalopathy: (8) Pneumonia: (9) Sepsis: Plan Sepsis Right basilar community-acquired pneumonia -SIRS: Febrile, leukocytosis -Blood cultures -Sepsis IVF bolus -Sputum culture, bacterial antigens, inflammatory markers -Status post vancomycin, MRSA screening -Start cefepime -Consider speech therapy consult pending clinical course Acute metabolic encephalopathy -Treat underlying sepsis Hypovolemic hyponatremia Hypokalemia Dehydration Hypomagnesia -Replace electrolytes as clinically indicated -Receiving IV fluids -Monitor oral intake Debility and physical deconditioning -Treat underlying pneumonia and sepsis -May need therapy evaluation Alzheimer's dementia -At risk of delirium -Supportive care DVT ppx: Lovenox Code: Full PDMP PDMP Reviewed: Not Reviewed Attestations Medical Necessity Statement*: Patient presents with severe weakness, found to have sepsis with right basilar pneumonia with expected hospitalization across 2 midnights for following of cultures, IV antibiotics, and supportive care. Coding Level of Care Code Acute Code for Chg Fwd Diagnoses Leukocytosis D72.829 Hyponatremia E87.1 Hypochloremia E87.8 Hypokalemia E87.6 Hypomagnesemia E83.42 Elevated CK R74.8 Acute metabolic encephalopathy G93.41 Pneumonia J18.9 Sepsis A41.9
[2024-06-22] MEDS: vancomycin 1,250 MG/250 ML PIGGYBACK 166.67 MG IV (21:24)
[2024-06-22 23:56] VITALS: BP 154/96; PULSE 78; RESP 16; O2SAT 94
[2024-06-22 23:57] VITALS: PULSE 90; PULSE 94; RESP 23; TEMP 36.6; BMI 26.6
[2024-06-23] VITALS (96 sets, daily range): BP systolic 82–185; BP diastolic 64–149; PULSE 78–164; RESP 5–38; TEMP 36.3–36.9; O2SAT 74–99; BMI 27.1
[2024-06-23] MEDS: magnesium sulfate premix 2 GM/50 ML PIGGYBACK IV (00:22)
[2024-06-23] MEDS: trazodone 50 mg Tablet 25 MG PO (00:35)
[2024-06-23] MEDS: enoxaparin 40 mg/0.4 mL Syringe SUBCUT (00:39)
[2024-06-23] MEDS: cefepime 2,000 mg SDV 2000 MG IVP ×2 (00:42→11:03)
[2024-06-23 00:48] LABS: Procalcitonin 1.04 ng/mL (0-0.5)
--- NOTE | 2024-06-23 02:26 | PC.NURSE ---
AMS: Patient was making attempts to remove oxygen, this nurse made multiple attempts to redirect and reorient patient, educating her on the importance of the oxygen. The patient continued to remove oxygen, telemetry, and her IV.
[2024-06-23 03:24] LABS: MRSA PCR OZH (swab) NOT DETECTED (Not Detecte)
[2024-06-23] MEDS: HYDROcodone-acetaminophen 10-325 mg Tablet 1 TAB PO (03:28)
[2024-06-23 06:01] LABS: Basophils # 0.2 10^3/uL (0.0-0.1); Basophils % 0.6 %; Eosinophils # 0.1 10^3/uL (0.0-0.8); Eosinophils % 0.3 %; Hematocrit 33.9 % (36-47); Lymphocytes # 0.5 10^3/uL (0.8-4.8); Lymphocytes % 1.8 %; Mean Corpuscular HGB Conc 31.6 g/dL (30-55); Mean Corpuscular Hemoglobin 31.4 pg (27-33); Mean Corpuscular Volume 99.4 fl (85-98); Mean Platelet Volume 10.8 fL (7.4-10.4); Monocytes # 0.6 10^3/uL (0.2-0.9); Monocytes % 2.4 %; Neutrophils # 25.43 10^3/uL (1.8-7.7); Neutrophils % 93.4 %; Nucleated Red Blood Cells % 0 %; Platelet Count 203 10^3/cmm (157-399); Red Blood Count 3.41 10^6/uL (3.85-5.65); Red Cell Distribution Width 14.7 % (12.1-15.1); White Blood Count 27.22 10^3/uL (3.29-11.43)
[2024-06-23 08:37] LABS: Alanine Aminotransferase 13 U/L (0-33); Alkaline Phosphatase 133 U/L (35-105); Anion Gap 18.3 (5-19); Aspartate Amino Transferase 35 U/L (0-32); Blood Urea Nitrogen 21 mg/dL (8-23); Calcium 8.5 mg/dL (8.5-10.5); Carbon Dioxide 22 mmol/L (22-29); Chloride 100 mmol/L (98-107); Creatinine Clr Calc Pharmacy 62.6344; Glucose 106 mg/dL (65-115); Magnesium 1.6 mg/dL (1.7-2.3); Osmolality Calculated 287 mOsm/kg (285-295); Phosphorus 2.9 mg/dL (2.5-4.5); Potassium 3.3 mmol/L (3.5-5.1); Sodium 137 mmol/L (136-145); Total Bilirubin 0.8 mg/dL (0.15-1.2)
[2024-06-23] MEDS: gabapentin 300 mg Capsule PO ×2 (14:42→21:11)
[2024-06-23] MEDS: morphine 4 mg/mL SDV 1 mL 2 MG IVP ×2 (14:49→18:57)
--- NOTE | 2024-06-23 18:20 | P.PN_ITS ---
Subjective 2 Subjective: Confused. Intermittently hallucinating. Pulling on Triplett catheter. Vitals/I&O/Wt Last Vital Signs Temp 98.2 F 06/23/24 17:15 Pulse 89 06/23/24 17:15 Resp 16 06/23/24 17:15 BP 164/90 06/23/24 17:15 Pulse Ox 93 06/23/24 17:15 O2 Del Method Room Air 06/23/24 17:15 O2 Flow Rate 3 06/23/24 00:00 06/23/24 06/23/24 06/23/24 06:59 14:59 22:59 Intake Total 480 / 480 500 / 500 Output Total 500 / 500 425 / 425 Balance -20 / -20 75 / 75 Weight last 48 hrs Weight 81 kg Weight 79.5 kg Weight 77.111 kg Physical Exam 2 Narrative: Accompanied by her Const: COMMON NORMALS: alert ORIENTATION/CONSCIOUSNESS: Yes awake and Yes confused HENMT: COMMON NORMALS: oropharynx normal Neck/C-Spine: COMMON NORMALS: no JVD Resp: COMMON NORMALS: normal respiratory effort and clear to auscultation bilaterally AUSCULTATION: clear to auscultation bilaterally Cardio: COMMON NORMALS: no JVD, regular rhythm, S1 normal heart sound present, S2 normal heart sound present and No murmurs present (Cardio) RHYTHM: regular rhythm HEART SOUNDS: S1 normal heart sound present and S2 normal heart sound present GI: COMMON NORMALS: Normal to inspection, nondistended, normoactive bowel sounds present, Soft to palpation and non-tender PALPATION: Yes Soft to palpation Extremity: COMMON NORMALS: no joint enlargement and no pedal edema Neuro: COMMON NORMALS: moves all extremities SENSORIUM/ORIENTATION: Yes alert Skin: COMMON NORMALS: no rashes or lesions noted GENERAL SKIN EXAM: no rashes or lesions noted Urinary Catheter Management: Triplett: Cath Placed During This Visit: yes Reason for Continuing Indwelling Catheter: Accurate Measurement of Urinary Output in Critically Ill Patients Urinary Catheter Date of Insertion: 06/22/24 Urinary Catheter Time of Insertion: 20:10 Data 06/23/24 05:49 06/23/24 07:56 Micro: Microbiology 06/22/24 20:06 Bacterial Antigens - Final Urine,Voided 06/22/24 19:10 Blood Culture - Preliminary Blood SPECIMEN COLLECTED 06/22/24 19:19 Blood Culture - Preliminary Blood SPECIMEN COLLECTED A&P Assessment and plan (1) Leukocytosis: (2) Hyponatremia: (3) Hypochloremia: (4) Hypokalemia: (5) Hypomagnesemia: (6) Elevated CK: (7) Acute metabolic encephalopathy: (8) Pneumonia: (9) Sepsis: Plan Sepsis Right basilar community-acquired pneumonia Per discussion with her , her dementia has been worsening over the last 3 months or so. He reports that several days back she had been confused and seemed to be having difficulty understanding how to swallow sometimes blowing food out. Discussed additional assessment by speech therapy with possible aspiration pneumonia. Continue cefepime. Aspiration precautions. -Sputum culture, bacterial antigens, inflammatory markers reviewed. Reviewed viral studies. -MRSA screening reviewed, negative -On cefepime, monitor for risk of worsening encephalopathy, , C. difficile, Haines-Ebenezer syndrome. -Consider speech therapy consult pending clinical course Acute metabolic encephalopathy: Confused, pulling on Triplett catheter. Discussed to remove Triplett catheter. Discussed in case needing antipsychotic, may be considered, but may elevate risk of mortality. As per discussion with her , held back as a last resort. -Treat underlying sepsis Hypovolemic hyponatremia Hypokalemia Dehydration Hypomagnesia: Recheck magnesium -Replace electrolytes as clinically indicated Debility and physical deconditioning -Treat underlying pneumonia and sepsis -May need therapy evaluation Alzheimer's dementia -At risk of delirium -Supportive care DVT ppx: Lovenox Code: Full PDMP PDMP Reviewed: Not Reviewed Attestations 2 Medical Necessity Statement*: Continue admission for assessment management of pneumonia, possible aspiration pneumonia, with acute metabolic encephalopathy, electrolyte abnormalities, and a lady with underlying dementia of advanced age. and High MDM includes described risk of complication, morbidity or mortality of management as documented Diagnoses Leukocytosis D72.829 Hyponatremia E87.1 Hypochloremia E87.8 Hypokalemia E87.6 Hypomagnesemia E83.42 Elevated CK R74.8 Acute metabolic encephalopathy G93.41 Pneumonia J18.9 Sepsis A41.9
--- NOTE | 2024-06-23 18:35 | PC.NURSE ---
Shift SUmmary: uneventful shift. Up to chair for most of the day.Patient has dementia and has baseline confusion, but she continues to be more confused than normal. Uncooperative most of the time, often is suspicious of nursing staff. Total urine output has only been 250mL today, poor oral intake due to lack of cooperation.
[2024-06-23] MEDS: duloxetine 60 mg Capsule PO (21:11)
[2024-06-23] MEDS: atorvastatin 40 mg Tablet 80 MG DOBHOFF (21:11)
[2024-06-24] VITALS (58 sets, daily range): BP systolic 140–177; BP diastolic 62–127; PULSE 78–96; RESP 15–31; TEMP 36.9–37.2; O2SAT 79–95
[2024-06-24] MEDS: cefepime 2,000 mg SDV 2000 MG IVP ×2 (00:58→13:22)
[2024-06-24] MEDS: enoxaparin 40 mg/0.4 mL Syringe SUBCUT (00:59)
[2024-06-24 04:38] LABS: Basophils # 0.1 10^3/uL (0.0-0.1); Basophils % 0.4 %; Eosinophils % 0.1 %; Hematocrit 33.2 % (36-47); Lymphocytes # 0.6 10^3/uL (0.8-4.8); Lymphocytes % 2.2 %; Mean Corpuscular HGB Conc 32.5 g/dL (30-55); Mean Corpuscular Hemoglobin 30.7 pg (27-33); Mean Corpuscular Volume 94.3 fl (85-98); Mean Platelet Volume 10.5 fL (7.4-10.4); Monocytes # 0.6 10^3/uL (0.2-0.9); Monocytes % 2.2 %; Neutrophils # 25.08 10^3/uL (1.8-7.7); Neutrophils % 93.5 %; Nucleated Red Blood Cells % 0 %; Platelet Count 226 10^3/cmm (157-399); Red Blood Count 3.52 10^6/uL (3.85-5.65); Red Cell Distribution Width 14.1 % (12.1-15.1)
[2024-06-24 04:54] LABS: Alanine Aminotransferase 15 U/L (0-33); Albumin Level 2.9 g/dL (3.5-5.2); Alkaline Phosphatase 131 U/L (35-105); Anion Gap 14.5 (5-19); Aspartate Amino Transferase 37 U/L (0-32); Blood Urea Nitrogen 17 mg/dL (8-23); Calcium 8.6 mg/dL (8.5-10.5); Carbon Dioxide 26 mmol/L (22-29); Chloride 100 mmol/L (98-107); Creatinine Clr Calc Pharmacy 62.6344; Globulin 3.1 g/dL (1.3-4.6); Glucose 110 mg/dL (65-115); Osmolality Calculated 286 mOsm/kg (285-295); Potassium 3.5 mmol/L (3.5-5.1); Sodium 137 mmol/L (136-145); Total Bilirubin 0.7 mg/dL (0.15-1.2)
[2024-06-24 04:56] LABS: Creatine Phosphokinase 396 U/L (26-192); Magnesium 1.8 mg/dL (1.7-2.3)
[2024-06-24] MEDS: divalproex ER 500 mg Tablet (24H) PO (07:36)
[2024-06-24] MEDS: levothyroxine 100 mcg Tablet PO (07:36)
[2024-06-24] MEDS: clopidogrel 75 mg Tablet PO (07:36)
[2024-06-24] MEDS: HYDROcodone-acetaminophen 10-325 mg Tablet 1 TAB PO (07:36)
[2024-06-24] MEDS: gabapentin 300 mg Capsule PO (07:36)
[2024-06-24] MEDS: aspirin 81 mg EC Tablet PO (07:37)
--- NOTE | 2024-06-24 14:03 | PC.NURSE ---
Discharged - Medications sent to [facility] pharmacy. Upcoming appointment and medication education provided to . Home health to see them tommorow. IV removed. Patient signature form signed.
--- NOTE | 2024-06-24 16:25 | P.DS_ITS ---
Discharge Providers Date of Admission: 06/22/24 21:00 Date of Discharge: June 24, 2024 Attending Provider at Admission: Andrea Shaikh MD Attending Provider at Discharge: Emir Warren Primary Care Provider: Andrea Gaona MD Diagnoses at Discharge Discharge Diagnosis (1) Leukocytosis: Status: Acute (2) Hyponatremia: Status: Acute (3) Hypochloremia: Status: Acute (4) Hypokalemia: Status: Acute (5) Hypomagnesemia: Status: Acute (6) Elevated CK: Status: Acute (7) Acute metabolic encephalopathy: Status: Acute (8) Pneumonia: Status: Acute (9) Sepsis: Status: Acute Reason for Visit Reason for Visit: ams Brief History: Gabrielle Li is a 79 year old female with a past medical history significant for dementia, osteoporosis, orthostatic hypotension, hypothyroidism, stroke, transient ischemic attack, and multiple other comorbidities who presents to the emergency department with severe weakness. Patient seen evaluated emergency department. She is slightly lethargic but awake. Her is bedside and very supportive. He provides much of the collateral information. He notes for the past week she has been sick but there has been a significant worsening in the past 2 days. She has been very confused and generally weak. Oral intake has been very poor. He notes that she has been drinking lots of water which she is typically good about. In the ED, patient found to have right basilar pneumonia. She denies recent known aspiration. She does endorse cough, described as nonproductive. Hospital Course Hospital Course She received treatment with cefepime, did not end up requiring oxygen support. Blood cultures so far remaining negative on preliminary test. Bacterial antigens were negative. Her hospitalization was complicated by acute encephalopathy superimposed on chronic dementia, yesterday significantly confused, pulling out her Triplett catheter, uncooperative with staff. Today significant improvement she is awake alert, pleasant, cooperative, conversant. Feeling much better. Saturating well on room air. Home oxygen evaluation requested. Mild rhabdomyolysis showing improvement. Sepsis resolved. She will complete antibiotic course with oral antibiotic with Augmentin. She was assess ed by speech therapy with concern for aspiration, strategies for aspiration precautions were discussed with her . With additional recommendation for mildly thickened liquids with soft and bite-size foods. However, as per discussion with concern for progressing dementia aspiration unfortunately may become a recurrent risk. senior care rehabilitation was considered, however, was judged likely to be more detrimental with patient being away from home environment than beneficial by her family based on her prior experiences. Please reassess for continued recovery from pneumonia, as well as reassess dementia and revisit goals of care. Physical Exam Const: COMMON NORMALS: alert GENERAL APPEARANCE: cooperative ORIENTATION/CONSCIOUSNESS: Yes awake OTHER: Awake, pleasant, conversant. HENMT: COMMON NORMALS: oropharynx normal Neck/C-Spine: COMMON NORMALS: no JVD Resp: COMMON NORMALS: normal respiratory effort and clear to auscultation bilaterally AUSCULTATION: clear to auscultation bilaterally Cardio: COMMON NORMALS: no JVD, regular rhythm, S1 normal heart sound present, S2 normal heart sound present and No murmurs present (Cardio) RHYTHM: regular rhythm HEART SOUNDS: S1 normal heart sound present and S2 normal heart sound present GI: COMMON NORMALS: Normal to inspection, nondistended, normoactive bowel sounds present, Soft to palpation and non-tender PALPATION: Yes Soft to palpation Extremity: COMMON NORMALS: no joint enlargement and no pedal edema Neuro: COMMON NORMALS: moves all extremities SENSORIUM/ORIENTATION: Yes alert Skin: COMMON NORMALS: no rashes or lesions noted GENERAL SKIN EXAM: no rashes or lesions noted Urinary Catheter Management: Triplett: Cath Placed During This Visit: yes, but has since been removed by the nurse Reason for Continuing Indwelling Catheter: Accurate Measurement of Urinary Output in Critically Ill Patients Urinary Catheter Date of Insertion: 06/22/24 Urinary Catheter Time of Insertion: 20:10 Date Urinary Catheter Removed: 06/23/24 Time Urinary Catheter Discontinued: 11:00 Discharge Data Studies Completed and Pending Completed Studies During Hospitalization Category Date Time Status CT head wo con* [id number] Stat Cat Scan 06/22/24 18:49 Completed XR chest 1V portable [id number] Stat Exams 06/22/24 18:49 Completed Pending at discharge Category Date Time Status Blood Culture Stat Lab 06/22/24 19:10 Results Radiology Impressions Chest X-Ray 06/22/24 18:49 IMPRESSION: Large right basilar and perihilar area consolidation consistent with pneumonia, such as aspiration related. Head CT 06/22/24 18:49 IMPRESSION: 1. No acute cranial findings. 2. Chronic bilateral basal ganglia lacunar infarcts. 3. Moderate cerebral disease. 4. Age-appropriate involutional changes of the brain. Laboratory Results WBC 26.80 10^3/uL (3.29-11.43) H 06/24/24 04:02 RBC 3.52 10^6/uL (3.85-5.65) L 06/24/24 04:02 Hgb 10.80 g/dL (11.27-16.99) L 06/24/24 04:02 Hct 33.2 % (36-47) L 06/24/24 04:02 MCV 94.3 fl (85-98) D 06/24/24 04:02 MCH 30.7 pg (27-33) 06/24/24 04:02 MCHC 32.5 g/dL (30-55) 06/24/24 04:02 RDW 14.1 % (12.1-15.1) 06/24/24 04:02 Plt Count 226 10^3/cmm (157-399) 06/24/24 04:02 MPV 10.5 fL (7.4-10.4) H 06/24/24 04:02 Neut % (Auto) 93.5 % 06/24/24 04:02 Lymph % (Auto) 2.2 % 06/24/24 04:02 [place] % (Auto) 2.2 % 06/24/24 04:02 Eos % (Auto) 0.1 % 06/24/24 04:02 Baso % (Auto) 0.4 % 06/24/24 04:02 Neut # (Auto) 25.08 10^3/uL (1.8-7.7) H 06/24/24 04:02 Lymph # (Auto) 0.6 10^3/uL (0.8-4.8) L 06/24/24 04:02 [place] # (Auto) 0.6 10^3/uL (0.2-0.9) 06/24/24 04:02 Eos # (Auto) 0.0 10^3/uL (0.0-0.8) 06/24/24 04:02 Baso # (Auto) 0.1 10^3/uL (0.0-0.1) 06/24/24 04:02 Nucleated RBC % (auto) 0 % 06/24/24 04:02 Nucleated RBCs # 0.0 /100WBC 06/24/24 04:02 PT 14.70 SECONDS (12.1-14.9) 06/22/24 19:19 INR 1.07 (0.8-1.2) 06/22/24 19:19 APTT 30.7 SECONDS (23.9-36.7) 06/22/24 19:19 Specimen Type Arterial 06/22/24 18:49 Sample Site Brachial, left 06/22/24 18:49 ABG pH 7.49 (7.35-7.45) H 06/22/24 18:49 ABG pCO2 36.3 mmHg (35-45) 06/22/24 18:49 ABG pO2 62.8 mmHg (80.0-100.0) L 06/22/24 18:49 ABG HCO3 27.5 mmol/L (22-26) H 06/22/24 18:49 ABG Base Excess 4.1 mmol/L (-2.0-2.0) H 06/22/24 18:49 John Paul Test N/a 06/22/24 18:49 Hematocrit 37.3 % (37-47) 06/22/24 18:49 Hgb O2 Saturation 90.3 % (95-100) L 06/22/24 18:49 Carboxyhemoglobin 1.3 %THgb (0.4-20.1) 06/22/24 18:49 Methemoglobin 1.1 % (0.4-1.5) 06/22/24 18:49 Total Hemoglobin 12.2 g/dL (12-16) 06/22/24 18:49 O2 Delivery Device Nc 06/22/24 18:49 O2 Liters/Min 3.0 % 06/22/24 18:49 Site Administrator ID [email or web address] 06/22/24 18:49 Sodium 137 mmol/L (136-145) 06/24/24 04:02 Potassium 3.5 mmol/L (3.5-5.1) 06/24/24 04:02 Chloride 100 mmol/L (98-107) 06/24/24 04:02 Carbon Dioxide 26 mmol/L (22-29) 06/24/24 04:02 Anion Gap 14.5 (5-19) 06/24/24 04:02 BUN 17 mg/dL (8-23) 06/24/24 04:02 Creatinine 0.6 mg/dL (0.5-0.9) 06/24/24 04:02 GFR Calculation Not Reportable 06/24/24 04:02 Glucose 110 mg/dL (65-115) 06/24/24 04:02 Calculated Osmolality 286 mOsm/kg (285-295) 06/24/24 04:02 Lactic Acid 1.9 mmol/L (0.5-2.2) 06/22/24 19:19 Calcium 8.6 mg/dL (8.5-10.5) 06/24/24 04:02 Phosphorus 2.9 mg/dL (2.5-4.5) 06/23/24 07:56 Magnesium 1.8 mg/dL (1.7-2.3) 06/24/24 04:02 Total Bilirubin 0.7 mg/dL (0.15-1.2) 06/24/24 04:02 AST 37 U/L (0-32) H 06/24/24 04:02 ALT 15 U/L (0-33) 06/24/24 04:02 Alkaline Phosphatase 131 U/L (35-105) H 06/24/24 04:02 Creatine Kinase 396 U/L (26-192) H* 06/24/24 04:02 C-Reactive Protein 252.8 mg/L (0.0-4.9) H 06/22/24 19:19 Total Protein 6.0 g/dL (6.6-8.7) L 06/24/24 04:02 Albumin 2.9 g/dL (3.5-5.2) L 06/24/24 04:02 Globulin 3.1 g/dL (1.3-4.6) 06/24/24 04:02 Procalcitonin 1.04 ng/mL (0-0.5) H 06/22/24 19:19 Urine Color Yellow (Yellow) 06/22/24 20:06 Urine Appearance Clear (CLEAR) 06/22/24 20:06 Urine pH 7.0 (5-7) 06/22/24 20:06 Ur Specific [place] 1.016 (1.005-1.030) 06/22/24 20:06 Urine Protein 1+ (Negative) A 06/22/24 20:06 Urine Glucose (UA) Negative (Normal) 06/22/24 20:06 Urine Ketones Negative (Negative) 06/22/24 20:06 Urine Blood Trace (Negative) A 06/22/24 20:06 Urine Nitrate Negative (Negative) 06/22/24 20:06 Urine Bilirubin Negative (Negative) 06/22/24 20:06 Urine Urobilinogen 1.0 mg/dL (Negative) 06/22/24 20:06 Ur Leukocyte Esterase Negative (Negative) 06/22/24 20:06 Urine RBC 3-5 /hpf (0-2) 06/22/24 20:06 Urine WBC 0-5 /hpf (0-5) 06/22/24 20:06 Ur Squamous Epith Cells 0-5 /hpf (0-5) 06/22/24 20:06 Amorphous Sediment Not Reportable 06/22/24 20:06 Urine Bacteria None seen /hpf (NONE) 06/22/24 20:06 Hyaline Casts 1.65 /lpf 06/22/24 20:06 Nasal MRSA (PCR) Not detected (Not Detecte) 06/23/24 00:51 Valproic Acid 2.8 ug/mL (50-100) L 06/22/24 19:19 Ethyl Alcohol < 10 mg/dL (0-10) 06/22/24 19:19 Influenza A (PCR) Negative (Negative) 06/22/24 20:13 Influenza Type B (PCR) Negative (Negative) 06/22/24 20:13 RSV (PCR) Negative (Negative) 06/22/24 20:13 SARS-CoV-2 (PCR) Negative (Negative) 06/22/24 20:13 Vitals Last Vital Signs Temp 98.5 F 06/24/24 14:02 Pulse 85 06/24/24 14:02 Resp 19 H 06/24/24 14:02 BP 157/92 06/24/24 14:02 Pulse Ox 93 06/24/24 14:02 O2 Del Method Room Air 06/24/24 13:45 O2 Flow Rate 3 06/23/24 00:00 Discharge Plan Discharge Patient Disposition: Home Health Service Condition: Stable Prescriptions: New amoxicillin-pot clavulanate 875-125 mg tablet 1 tab PO Q12H Qty: 10 0RF Continued duloxetine 60 mg capsule,delayed release(DR/EC) 60 mg PO BEDTIME Qty: 90 3RF midodrine 5 mg tablet 5 mg PO TID PRN (Reason: LOW BLOOD PRESSURE) Qty: 90 6RF levothyroxine 100 mcg tablet 100 mcg PO DAILY Qty: 90 3RF atorvastatin 80 mg tablet 80 mg PO BEDTIME Qty: 90 3RF clopidogrel 75 mg tablet 75 mg PO DAILY Qty: 90 3RF hydrocodone-acetaminophen 10-325 mg tablet 1 tab PO Q6H PRN (Reason: Pain) 30 Days Qty: 120 0RF Prolia 60 mg/mL Syringe See Rx Instructions .ROUTE .COMPLEX Rx Instructions: 60 mg subcutaneously EVERY SIX MONTHS aspirin 81 mg Tablet,Delayed Release (Dr/Ec) 81 mg PO DAILY Qty: 30 0RF gabapentin 300 mg capsule 300 mg PO TID Rx Instructions: TAKE 1 CAPSULE BY MOUTH THREE TIMES DAILY Discharge Orders: Discharge Order (Routine); Ordered 06/24/24 Ordered By: Emir Warren Referrals: [facility] [Outside] Andrea Gaona MD [Primary Care Provider, [facility]] - 07/01/24 2:40 pm Discharge Diet: As Directed Patient Instructions: Amoxicillin (By mouth), Bacterial Pneumonia (GEN), Altered Mental Status (ED), Opioid Safety Activity Restrictions/Additional Instructions: Complete antibiotic course for pneumonia, follow-up with your primary provider for reassessment. Continue aspiration precautions, strategies as per recommendation by speech therapy. Follow-up with primary provider with regards to advancement of dementia. Seek medical attention in case of worsening or new concerning symptoms. Discharge Attestations Time Spent in Discharge Care*: greater than 30 min Quality Metrics Clinical Quality Measures [ No reported AMI, CVA or VTE this stay] Coding Level of Care Code 55232 Total time (in minutes) for Discharge: 40 Diagnoses Leukocytosis D72.829 Hyponatremia E87.1 Hypochloremia E87.8 Hypokalemia E87.6 Hypomagnesemia E83.42 Elevated CK R74.8 Acute metabolic encephalopathy G93.41 Pneumonia J18.9 Sepsis A41.9
== END 2024-06-24 14:05 | disposition home health service (06) | DRG 871 ==
LOC: ER 21:20 → ER IP 21:56 → ICU 23:06
PROVIDERS: Admitting Provider Internal Medicine; Emergency Provider Emergency Medicine; PCP Family Medicine; Visit Provider Internal Medicine
DX: A41.9 Sepsis, unspecified organism (principal); G93.41 Metabolic encephalopathy; J18.9 Pneumonia, unspecified organism; E87.1 Hypo-osmolality and hyponatremia; M62.82 Rhabdomyolysis; E87.8 Other disorders of electrolyte and fluid balance, not elsewhere classified; E87.6 Hypokalemia; E83.42 Hypomagnesemia; F03.A0 Unspecified dementia, mild, without behavioral disturbance, psychotic disturbance, mood disturbance, and anxiety; M81.0 Age-related osteoporosis without current pathological fracture; I95.1 Orthostatic hypotension; E03.9 Hypothyroidism, unspecified; M54.16 Radiculopathy, lumbar region; E86.1 Hypovolemia; Z79.02 Long term (current) use of antithrombotics/antiplatelets; Z79.891 Long term (current) use of opiate analgesic; Z79.82 Long term (current) use of aspirin; Z86.73 Personal history of transient ischemic attack (TIA), and cerebral infarction without residual deficits
CPT/HCPCS: 36415; 51702; 70450; 71045; 80053; 80164; 80307; 81001; 82550; 82805; 83605; 83735; 84100; 84145; 85025; 85610; 85730; 86140; 86403; 87040; 87637; 92610; 93005; 94760; 96365; 96367; 96372; 96374; 96375; 96376; 97161; 97530; 99285; J0692; J1650; J1885; J2270; J2543; J3370; J3475; J7030; J9999

== ENCOUNTER → 2024-07-01 15:26 | Outpatient (BNVA) | payer MEDICARE, OTHER, SELFPAY | PROVIDERS: PCP Family Medicine; Visit Provider Family Medicine | DX: Z51.81 Encounter for therapeutic drug level monitoring (principal); R74.8 Abnormal levels of other serum enzymes; E83.42 Hypomagnesemia | CPT/HCPCS: 80053; 82550; 83735; 85025 ==

== ENCOUNTER → 2024-07-08 07:52 | Outpatient (BNVA) | payer MEDICARE, OTHER, SELFPAY | PROVIDERS: PCP Family Medicine; Visit Provider Family Medicine | DX: A04.8 Other specified bacterial intestinal infections (principal); K57.32 Diverticulitis of large intestine without perforation or abscess without bleeding | CPT/HCPCS: 87324; 87493 ==

== ENCOUNTER → 2024-07-10 11:42 | Outpatient (BNVA) | payer MEDICARE, OTHER, SELFPAY | PROVIDERS: PCP Family Medicine; Visit Provider Family Medicine | DX: A41.9 Sepsis, unspecified organism (principal) | CPT/HCPCS: 87086 ==

== ENCOUNTER → 2024-07-18 10:44 | Outpatient (BNVA) | payer MEDICARE, OTHER, SELFPAY | PROVIDERS: PCP Family Medicine; Visit Provider Family Medicine | DX: A41.9 Sepsis, unspecified organism (principal) | CPT/HCPCS: 87077; 87086; 87184 ==

== ENCOUNTER → 2024-08-18 13:55 | Outpatient (BNVA) | payer MEDICARE, OTHER, SELFPAY | PROVIDERS: PCP Family Medicine; Visit Provider Family Medicine | DX: E55.9 Vitamin D deficiency, unspecified (principal); Z51.81 Encounter for therapeutic drug level monitoring; E03.9 Hypothyroidism, unspecified; E53.8 Deficiency of other specified B group vitamins | CPT/HCPCS: 80053; 82306; 82607; 84439; 84443; 85025 ==

== ENCOUNTER → 2024-08-19 11:40 | Outpatient (BNVA) | payer MEDICARE, OTHER, SELFPAY | PROVIDERS: PCP Family Medicine; Visit Provider Family Medicine | DX: R30.0 Dysuria (principal) | CPT/HCPCS: 87086 ==

== ENCOUNTER 2024-08-29 15:30 | Oncology outpatient (recurring) (ONCR) | payer MEDICARE, OTHER, SELFPAY ==
--- NOTE | 2024-08-29 15:37 | USR_ITS ---
PROCEDURE INFORMATION: Exam: US Retroperitoneal, Complete, Kidneys and Bladder Exam date and time: 08/29/2024 4:02 PM Age: 79 years old Clinical indication: Condition or disease; Other: Urinary retention TECHNIQUE: Imaging protocol: Real-time ultrasound of the retroperitoneum with image documentation. Complete exam focused on the bilateral kidneys and urinary bladder. COMPARISON: CT abdomen pelvis w con* [id number] 11/12/2023 9:16 PM FINDINGS: Limitations: This study is technically difficult due to the patient's body habitus and poor acoustical windows as well as bowel gas within the abdomen. Right kidney: Measures 9.1 cm in length. No stones appreciated. No significant hydronephrosis. Left kidney: Measures 9.4 cm in length. No stones appreciated. No significant hydronephrosis. Urinary bladder: Incompletely distended on this exam with a prevoid volume of 44 cc. No significant postvoid residual was seen. US/US renal BI with PV bladder IMPRESSION: 1. Technically difficult study. 2. No definite renal abnormality seen. 3. Incompletely distended urinary bladder with a prevoid volume of 44 cc. No postvoid residual was seen.
--- NOTE | 2024-08-29 15:45 | USR_ITS ---
PROCEDURE INFORMATION: Exam: US Pelvis Transabdominal, Complete, and US Pelvis Transvaginal, Non-obstetric Exam date and time: 08/29/2024 3:50 PM Age: 79 years old Clinical indication: Other: Vaginal discharge; Additional info: Vaginal bleeding TECHNIQUE: Imaging protocol: Real-time complete transabdominal and transvaginal pelvic ultrasound (non-obstetric) with image documentation. Transvaginal imaging was used for better evaluation of the endometrium, adnexa, and/or cervix. COMPARISON: CT abdomen pelvis w con* [id number] 11/12/2023 9:16 PM FINDINGS: Limitations: This study is technically difficult due to the patient's body habitus and poor acoustical windows as well as significant bowel gas within the pelvis. Uterus: Uterus measures 6.4 x 2.5 x 3.4 cm. The endometrial stripe measures 4 mm in thickness. No internal vascularity is seen within the stripe. Right ovary/adnexa: Not identified. Left ovary/adnexa: Not identified. Intraperitoneal space: No intraperitoneal fluid. Urinary bladder: Incompletely distended. US/US pelvic complete* [id number] IMPRESSION: 1. Technically difficult study. 2. Endometrial stripe measures 4 mm in thickness. 3. Ovaries not identified.
== END 2024-09-11 23:59 | disposition home or self-care (01) ==
LOC: RAD 15:31 → ONCMED 09-01 09:07
PROVIDERS: PCP Family Medicine; Visit Provider Family Medicine
DX: N95.0 Postmenopausal bleeding (principal)
CPT/HCPCS: 76770; 76856; 76857

== ENCOUNTER → 2024-10-07 07:12 | Outpatient (BNVA) | payer MEDICARE, OTHER, SELFPAY | PROVIDERS: PCP Family Medicine; Visit Provider Family Medicine | DX: R30.0 Dysuria (principal) | CPT/HCPCS: 81000 ==

== ENCOUNTER → 2024-10-08 11:03 | Outpatient (BNVA) | payer MEDICARE, OTHER, SELFPAY | PROVIDERS: PCP Family Medicine; Visit Provider Family Medicine | DX: N39.0 Urinary tract infection, site not specified (principal) | CPT/HCPCS: 87086 ==

== ENCOUNTER → 2024-12-01 15:39 | Outpatient (BNVA) | payer MEDICARE, OTHER, SELFPAY | PROVIDERS: PCP Family Medicine; Visit Provider Family Medicine | DX: E03.9 Hypothyroidism, unspecified (principal) | CPT/HCPCS: 84439; 84443 ==

== ENCOUNTER 2024-12-17 12:54 | Oncology outpatient (recurring) (ONCR) | payer MEDICARE, OTHER, SELFPAY ==
[2024-12-17] MEDS: denosumab 60 mg SDV (Infusion Clinic Only) SUBCUT (13:18)
== END 2025-01-11 23:59 | disposition home or self-care (01) ==
PROVIDERS: PCP Family Medicine; Visit Provider Family Medicine
DX: M81.0 Age-related osteoporosis without current pathological fracture (principal); Z79.899 Other long term (current) drug therapy
CPT/HCPCS: 96372; J0897

== ENCOUNTER 2024-12-30 11:43 | Emergency (ER) | payer MEDICARE, OTHER, SELFPAY ==
[2024-12-30 11:55] VITALS: BP 126/74; PULSE 88; RESP 14; TEMP 36.4; O2SAT 97
--- NOTE | 2024-12-30 12:55 | W.ED.ABDPA2 ---
HPI - Abdominal Pain General: Chief Complaint: Abdominal Pain Stated Complaint: lower back pain/abd pain Time Seen by Provider: 12/30/24 12:54 Source: patient and family Mode of arrival: wheelchair Limitations: no limitations History of Present Illness: Patient is an 79-year-old female presents to ED today along with family for evaluation of left-sided abdominal pain that seems to radiate into her lower back. She states she attempted to give urine sample while in the waiting room but it was difficult to go. She does states she recently submitted a urine sample to her primary care provider as she felt symptoms could be related to UTI. Family states they have not heard the results of the urine analysis. She has no history of urolithiasis. She does not have flank pain-more so states pain is across her lower back. She has not had any injury or trauma. She denies nausea or vomiting. She states she has had a decreased appetite stating nothing tastes good . She has not noticed any changes to her bowel movements. No fevers. She is not complaining of dysuria, urgency, hematuria. Patient states she first noticed symptoms about a week ago but they got significantly worse yesterday and into today. She cannot identify any alleviating or worsening factors to her discomfort. MD elicited complaint: abdominal pain Pertinent past history: none Onset (ago): day(s) Pain Consistency: constant Location: LLQ Severity: moderate Radiation: back Migration to: no migration Exacerbating factors: nothing Relieving factors: nothing Associated Symptoms: Reports no associated symptoms; Denies change in bowel habits, chills, constipation, diarrhea, dysuria, fever(s), hematochezia, melena, nausea and vomiting Related Data Home Medications ?Medication ?Instructions ?Recorded ?Confirmed denosumab 60 mg/mL subcutaneous See Rx Instructions .Route .COMPLEX 04/07/20 12/01/24 syringe (Prolia) Previous Rx's ?Medication ?Instructions ?Recorded aspirin 81 mg tablet,delayed 81 mg PO DAILY #30 tabs 10/31/23 release midodrine 5 mg tablet 5 mg PO TID PRN LOW BLOOD PRESSURE 11/14/23 #90 tabs potassium chloride 10 mEq 10 meq PO DAILY #30 tabs 07/01/24 tablet,extended release (Klor-Con) duloxetine 60 mg capsule,delayed 60 mg PO BEDTIME #90 caps 08/18/24 release sulfamethoxazole 800 1 tab PO BID #14 tabs 10/07/24 mg-trimethoprim 160 mg tablet (Bactrim DS) atorvastatin 80 mg tablet 80 mg PO BEDTIME #90 tabs 12/01/24 gabapentin 100 mg capsule 100 mg PO TID #90 caps 12/01/24 levothyroxine 112 mcg tablet 112 mcg PO DAILY #30 tabs 12/03/24 hydrocodone 10 mg-acetaminophen 1 tab PO Q6H PRN Pain 30 days #120 12/10/24 325 mg tablet tabs clopidogrel 75 mg tablet 75 mg PO DAILY #90 tabs 12/16/24 cefuroxime axetil 500 mg tablet 500 mg PO BID 7 days #14 tabs 12/30/24 Allergies Allergy/AdvReac Type Severity Reaction Status Date / Time No Known Allergies Allergy Verified 07/01/24 14:51 Review of Systems Const: Reports: change in appetite; Denies: fever(s), chills, body aches, fatigue or malaise Card: Denies: chest pain Resp: Denies: dyspnea GI: Reports: abdominal pain; Denies: nausea, vomiting, diarrhea, constipation, change in bowel habits, rectal pain, hematochezia or melena : Reports: urinary hesitancy; Denies: flank pain, dysuria, urinary frequency or urinary urgency Musc: Reports: back pain; Denies: neck pain, extremity pain, extremity swelling, joint pain or joint swelling Skin/Breast: Denies: rash Neuro: Denies: headache(s), numbness in extremities, weakness in extremities, sensory changes or dizziness PFS ED PFSH: Medical History Pneumonia TIA (transient ischemic attack) Orthostatic hypotension Osteoporosis DO NOT REMOVE, LINKED TO TX PLAN Lung nodule Needs follow-up CT chest yearly for 5 years. Lumbar radiculopathy Scoliosis Macrocytosis Abdominal pain Surgical History History of tibial fracture 2019 - 3 fractures in tibial plateau [facility] Family History Family/Other Alzheimer's dementia Social History Smoking and tobacco/nicotine status: never used tobacco/nicotine Alcohol intake: never Substance/Drug Use: never Marital status: Physical Exam Const: COMMON NORMALS: no acute distress, average body habitus, patient oriented x3, no limitations, healthy appearing, alert and well nourished GENERAL APPEARANCE: cooperative ORIENTATION/CONSCIOUSNESS: Yes awake, Yes oriented to person, Yes oriented to place and Yes oriented to time HENMT: COMMON NORMALS: normocephalic and atraumatic HEAD & SCALP: normal to inspection, normocephalic and atraumatic FACE & SINUS: normal facial exam Resp: COMMON NORMALS: normal respiratory effort and clear to auscultation bilaterally AUSCULTATION: clear to auscultation bilaterally Cardio: COMMON NORMALS: regular rate and regular rhythm RATE: regular rate RHYTHM: regular rhythm GI: COMMON NORMALS: Normal to inspection, nondistended, normoactive bowel sounds present, Soft to palpation, No hepatosplenomegaly present and no masses INSPECTION: Yes normal to inspection AUSCULTATION: Yes normoactive bowel sounds PALPATION: Yes Soft to palpation, Yes Tenderness to palpation present (GI) (diffuse tenderness but mostly to LLQ), Yes Guarding due to palpation present (GI), No Rigid due to palpation and Yes No hepatosplenomegaly present : COMMON NORMALS: Yes no CVA tenderness BLADDER/KIDNEY EXAM: Yes no CVA tenderness Back/Pelvis: COMMON NORMALS: no CVA tenderness and straight leg raise negative bilaterally THORACIC SPINE/UPPER BACK: No thoracic spinal tenderness LUMBAR SPINE/LOWER BACK: Yes lumbar spinal tenderness and Yes paraspinal muscle tenderness PELVIS: Yes buttocks normal and No sciatic notch tenderness SACROILIAC JOINTS: Yes SI joints normal SACRUM: no tenderness COCCYX: no tenderness OTHER: pain across lower back Extremity: COMMON NORMALS: normal to inspection GENERAL: Yes normal exam except as noted Neuro: [place]E COMA SCALE: document [facility] findings [place] coma scale eye opening: Spontaneous [place] coma scale verbal response: Orientated [place] coma scale motor response: Obey commands [place] coma scale total score: 15 COMMON NORMALS: patient oriented x3, moves all extremities, no focal motor deficits, no sensory deficits noted and gait normal SENSORIUM/ORIENTATION: Yes alert, Yes oriented to person, Yes oriented to place and Yes oriented to time Skin: COMMON NORMALS: no rashes or lesions noted GENERAL SKIN EXAM: no rashes or lesions noted Course Vital Signs: Vital signs: Vital Signs Temperature 97.6 F 11/18/25 11:55 Pulse Rate 88 12/30/24 11:55 Respiratory Rate 14 12/30/24 11:55 Blood Pressure 126/74 12/30/24 11:55 Pulse Oximetry 97 12/30/24 11:55 MDM - Abdominal Pain Medical Decision Making Patient is an 79-year-old female here for complaints of left-sided abdominal pain as well as pain across her lower back and difficulty with urination. DDx is broad including urolithiasis, acute cystitis, pelvic/abdominal mass, diverticulitis, proctitis, constipation, pyelonephritis, lumbar fracture, colitis, among others. Patient's vital signs have been stable throughout her stay. Blood work overall is unremarkable. CT scan showing constipation. She does have sigmoid diverticulosis without evidence of diverticulitis. Other chronic changes visualized including advanced degenerative lumbar changes and chronic bilateral sacral insufficiency fractures. Urinalysis obtained but urine volume was very low so several tests could not be ran and only a micro could be performed. They did see 15-25 WBCs under microscopy. She states she has had similar discomforts in the past with a UTI. Think it is reasonable to place her on antibiotics and await culture. Recommend she follow-up with primary care later this week for reevaluation of symptoms. Return ED precautions discussed. Differential Diagnosis Likely abdominal pain, calculus of kidney, constipation, diverticulitis and pancreatitis Medical Records I reviewed the patient's medical records. Lab Data I reviewed the patient's lab results. 12/30/24 13:05 12/30/24 13:05 Labs/Radiology: Radiology Impressions Abdomen/Pelvis CT 12/30/24 13:01 IMPRESSION: 1. No hydronephrosis in either kidney. No obstructing renal or ureteral calculi. 2. Moderate cecal and RIGHT colonic constipation. 3. Sigmoid diverticulosis. No evidence of acute diverticulitis. 4. Fat-containing umbilical hernia. 5. Advanced spondylitic changes lumbar spine. 6. Appendix is nonvisualized. 7. Chronic appearing bilateral sacral insufficiency fractures with sclerosis. Laboratory Results WBC 6.44 10^3/uL (3.29-11.43) 12/30/24 13:05 RBC 3.75 10^6/uL (3.85-5.65) L 12/30/24 13:05 Hgb 11.70 g/dL (11.27-16.99) 12/30/24 13:05 Hct 36.3 % (36-47) 12/30/24 13:05 MCV 96.8 fl (85-98) 12/30/24 13:05 MCH 31.2 pg (27-33) 12/30/24 13:05 MCHC 32.2 g/dL (30-55) 12/30/24 13:05 RDW 15.3 % (12.1-15.1) H 12/30/24 13:05 Plt Count 274 10^3/cmm (157-399) 12/30/24 13:05 MPV 9.8 fL (7.4-10.4) 12/30/24 13:05 Neut % (Auto) 71.1 % 12/30/24 13:05 Lymph % (Auto) 14.8 % 12/30/24 13:05 [place] % (Auto) 7.8 % 12/30/24 13:05 Eos % (Auto) 0.8 % 12/30/24 13:05 Baso % (Auto) 0.8 % 12/30/24 13:05 Neut # (Auto) 4.59 10^3/uL (1.8-7.7) 12/30/24 13:05 Lymph # (Auto) 1.0 10^3/uL (0.8-4.8) 12/30/24 13:05 [place] # (Auto) 0.5 10^3/uL (0.2-0.9) 12/30/24 13:05 Eos # (Auto) 0.1 10^3/uL (0.0-0.8) 12/30/24 13:05 Baso # (Auto) 0.1 10^3/uL (0.0-0.1) 12/30/24 13:05 Nucleated RBC % (auto) 0 % 12/30/24 13:05 Nucleated RBCs # 0.0 /100WBC 12/30/24 13:05 Sodium 135 mmol/L (136-145) L 12/30/24 13:05 Potassium 4.2 mmol/L (3.5-5.1) 12/30/24 13:05 Chloride 99 mmol/L (98-107) 12/30/24 13:05 Carbon Dioxide 24 mmol/L (22-29) 12/30/24 13:05 Anion Gap 16.2 (5-19) 12/30/24 13:05 BUN 12 mg/dL (8-23) 12/30/24 13:05 Creatinine 0.9 mg/dL (0.5-0.9) 12/30/24 13:05 GFR Calculation Not Reportable 12/30/24 13:05 Glucose 150 mg/dL (65-115) H 12/30/24 13:05 Calculated Osmolality 283 mOsm/kg (285-295) L 12/30/24 13:05 Lactic Acid 2.1 mmol/L (0.5-2.2) 12/30/24 13:05 Calcium 9.1 mg/dL (8.5-10.5) 12/30/24 13:05 Total Bilirubin 0.5 mg/dL (0.15-1.2) 12/30/24 13:05 AST 19 U/L (0-32) 12/30/24 13:05 ALT 13 U/L (0-33) 12/30/24 13:05 Alkaline Phosphatase 73 U/L (35-105) 12/30/24 13:05 C-Reactive Protein 3.0 mg/L (0.0-4.9) 12/30/24 13:05 Total Protein 6.6 g/dL (6.6-8.7) 12/30/24 13:05 Albumin 4.1 g/dL (3.5-5.2) 12/30/24 13:05 Globulin 2.5 g/dL (1.3-4.6) 12/30/24 13:05 Lipase 18 U/L (13-60) 12/30/24 13:05 Urine Color Dark yellow (Yellow) A 12/30/24 13:46 Urine Appearance Clear (CLEAR) 12/30/24 13:46 Urine pH Not Reportable 12/30/24 13:46 Ur Specific [place] Not Reportable 12/30/24 13:46 Urine Protein Not Reportable 12/30/24 13:46 Urine Glucose (UA) Not Reportable 12/30/24 13:46 Urine Ketones Not Reportable 12/30/24 13:46 Urine Blood Not Reportable 12/30/24 13:46 Urine Nitrate Not Reportable 12/30/24 13:46 Urine Bilirubin Not Reportable 12/30/24 13:46 Urine Urobilinogen Not Reportable 12/30/24 13:46 Ur Leukocyte Esterase Not Reportable 12/30/24 13:46 Urine RBC 0-4 /hpf (0-2) H 12/30/24 13:46 Urine WBC 15-25 /hpf (0-5) H 12/30/24 13:46 Ur Squamous Epith Cells 0-4 /hpf (0-5) H 12/30/24 13:46 Amorphous Sediment Not Reportable 12/30/24 13:46 Urine Bacteria Trace /hpf (NONE) 12/30/24 13:46 Hyaline Casts 5-10 /lpf H 12/30/24 13:46 Urine Mucus None /hpf 12/30/24 13:46 Ur Oval Fat Bodies Rare /hpf 12/30/24 13:46 All radiology interpretation(s) finalized by discharge Discharge Plan Discharge Patient Disposition: Home Clinical Impression: Acute cystitis Qualifiers: Hematuria presence: without hematuria Qualified Code(s): N30.00 - Acute cystitis without hematuria Condition: Stable Prescriptions: New cefuroxime axetil 500 mg tablet 500 mg PO BID 7 Days Qty: 14 0RF No Action gabapentin 100 mg capsule 100 mg PO TID Qty: 90 3RF atorvastatin 80 mg tablet 80 mg PO BEDTIME Qty: 90 3RF midodrine 5 mg tablet 5 mg PO TID PRN (Reason: LOW BLOOD PRESSURE) Qty: 90 6RF potassium chloride [Klor-Con 10] 10 mEq tablet extended release 10 meq PO DAILY Qty: 30 0RF duloxetine 60 mg capsule,delayed release(DR/EC) 60 mg PO BEDTIME Qty: 90 3RF sulfamethoxazole-trimethoprim [Bactrim DS] 800-160 mg tablet 1 tab PO BID Qty: 14 0RF levothyroxine 112 mcg tablet 112 mcg PO DAILY Qty: 30 3RF hydrocodone-acetaminophen 10-325 mg tablet 1 tab PO Q6H PRN (Reason: Pain) 30 Days Qty: 120 0RF clopidogrel 75 mg tablet 75 mg PO DAILY Qty: 90 3RF Prolia 60 mg/mL Syringe See Rx Instructions .ROUTE .COMPLEX Rx Instructions: 60 mg subcutaneously EVERY SIX MONTHS aspirin 81 mg Tablet,Delayed Release (Dr/Ec) 81 mg PO DAILY Qty: 30 0RF Discharge Orders: Discharge ED (Routine); Ordered 12/30/24 Ordered By: Leena Smiley Referrals: Andrea Gaona MD [Primary Care Provider, Family Practice] Patient Instructions: Abdominal Pain (ED), Urinary Tract Infection in Older Adults (ED), Patient Portal & Su Instructions Activity Restrictions/Additional Instructions: As we discussed, your blood work here overall was unremarkable. CT imaging did not show any obvious reason for your left-sided abdominal pain. It did show some degree of constipation. We did talk about the incidental findings of degenerative changes in your back and chronic appearing sacral insufficiency fractures. Your urine analysis did show white blood cells which could be indicative of infection. There were tests that they could not run due to low urine volume. We will go ahead and attempt to culture your urine and place you on antibiotics. I would like you to follow-up with primary care later this week for reevaluation of symptoms and to follow-up on urine culture. You may return to the emergency department at anytime for any further concerns you may have. It was a pleasure to treat you here in the emergency department today. I hope you begin to feel better soon. Print Language: [place] Coding Level of Care Code ED Portainer Operator for Joel Harden
--- NOTE | 2024-12-30 13:01 | CT_ITS ---
WS: [id number] CT ABDOMEN PELVIS TECHNIQUE: Noncontrast CT of the abdomen and pelvis with coronal and sagittal reformatted images. CLINICAL INFORMATION: L sided abdominal pain COMPARISON: 2023 DLP: 549.[address] scans at [facility] use at least one of these dose optimization techniques: automated exposure control; mA and/or kV adjustment per patient size (includes targeted exams where dose is matched to clinical indication); or iterative reconstruction. FINDINGS: Normal noncontrast liver and spleen. Normal gallbladder. Air-fluid level in the stomach. Small esophageal hiatal hernia. Small fibrotic opacity LEFT lower lobe. Fatty atrophy of the pancreas. Adrenal glands are normal. Tiny esophageal hiatal hernia. Aortic calcification. Splenic artery calcification. Tiny fat-containing umbilical hernia. Sigmoid diverticulosis. No hydronephrosis in either kidney. No obstructing renal or ureteral calculi. Appendix is not visualized. S-shaped thoracolumbar scoliosis. Advanced spondylitic changes lumbar spine. Chronic appearing sacral insufficiency fractures with sclerosis. CT/CT kidney stone [id number] IMPRESSION: 1. No hydronephrosis in either kidney. No obstructing renal or ureteral calcul i. 2. Moderate cecal and RIGHT colonic constipation. 3. Sigmoid diverticulosis. No evidence of acute diverticulitis. 4. Fat-containing umbilical hernia. 5. Advanced spondylitic changes lumbar spine. 6. Appendix is nonvisualized. 7. Chronic appearing bilateral sacral insufficiency fractures with sclerosis.
[2024-12-30 13:17] LABS: Hematocrit 36.3 % (36-47); Hemoglobin 11.70 g/dL (11.27-16.99); Mean Corpuscular HGB Conc 32.2 g/dL (30-55); Mean Corpuscular Hemoglobin 31.2 pg (27-33); Mean Corpuscular Volume 96.8 fl (85-98); Nucleated Red Blood Cells % 0 %; Platelet Count 274 10^3/cmm (157-399); Red Blood Count 3.75 10^6/uL (3.85-5.65); White Blood Count 6.44 10^3/uL (3.29-11.43)
[2024-12-30 13:39] LABS: Alanine Aminotransferase 13 U/L (0-33); Albumin Level 4.1 g/dL (3.5-5.2); Alkaline Phosphatase 73 U/L (35-105); Anion Gap 16.2 (5-19); Aspartate Amino Transferase 19 U/L (0-32); Blood Urea Nitrogen 12 mg/dL (8-23); Calcium 9.1 mg/dL (8.5-10.5); Carbon Dioxide 24 mmol/L (22-29); Chloride 99 mmol/L (98-107); Creatinine Clr Calc Pharmacy 54.4507; Globulin 2.5 g/dL (1.3-4.6); Glucose 150 mg/dL (65-115); Lipase 18 U/L (13-60); Osmolality Calculated 283 mOsm/kg (285-295); Potassium 4.2 mmol/L (3.5-5.1); Sodium 135 mmol/L (136-145); Total Protein 6.6 g/dL (6.6-8.7)
[2024-12-30 13:42] LABS: Lactic Sepsis W/Reflex 2.1 mmol/L (0.5-2.2)
[2024-12-30 14:08] LABS: Oval Fat Bodies Urine RARE /hpf
[2024-12-30 14:37] VITALS: BP 180/88; PULSE 65; O2SAT 95
[2024-12-30 15:02] LABS: Reflex Lactate Order REFLEX LACTIC ORDERD
== END 2024-12-30 14:51 | disposition home or self-care (01) ==
PROVIDERS: Emergency Medicine; Emergency Provider Physician Assistant; PCP Family Medicine
DX: N30.00 Acute cystitis without hematuria (principal); Z79.02 Long term (current) use of antithrombotics/antiplatelets; Z79.82 Long term (current) use of aspirin; Z86.73 Personal history of transient ischemic attack (TIA), and cerebral infarction without residual deficits
CPT/HCPCS: 36415; 74176; 80053; 81000; 81001; 83605; 83690; 85025; 86140; 87040; 87086; 99284

== ENCOUNTER 2025-01-29 12:27 | Emergency (ER) | payer MEDICARE, OTHER, SELFPAY ==
[2025-01-29] VITALS (10 sets, daily range): BP systolic 125–177; BP diastolic 71–107; PULSE 61–76; RESP 18; TEMP 36.6; O2SAT 86–98
--- NOTE | 2025-01-29 12:58 | ECG_ITS ---
[employer] Test Date: 2025-01-29 Pat Name: Gabrielle Li Department: Room: Gender: Female Repossession Agent: : [id number] Requested By: Yovanny Ascencio Order Number: [id number] Reading MD: Measurements Intervals [place] Rate: 67 P: 76 HI: 211 QRS: 37 QRSD: 85 T: 65 QT: 390 QTc: 414 Interpretive Statements SINUS RHYTHM WITH FIRST DEGREE AV BLOCK WITH OCCASIONAL SUPRAVENTRICULAR PREMATURE COMPLEXES [email or web address]
--- NOTE | 2025-01-29 13:12 | XR_ITS ---
WS: [id number] Portable AP upright chest, 01/29/2025 Clinical Data: dyspnea/cough Comparison: Portable chest, 06/22/2024 Findings: No nodules, masses or effusions are seen. The heart is normal. The pulmonary vascularity is not increased. No pneumonia or pneumothorax is seen. The diaphragms are flattened. The aortic arch shows calcification. Monitor leads are on the chest wall. XR/XR chest 1V portable [id number] Impression: Atherosclerosis and hyperinflation.
[2025-01-29 13:14] LABS: ABG PCO2 43.5 mmHg (35-45); ABG PH Result 7.39 (7.35-7.45); Alveolar-Arterial Oxygen Gradi 2.1 mmHg (5-10); Arterial Blood Gas Hematocrit 37.3 % (37-47); Blood Gas Allen Test Pos; Blood Gas LPM 2.0 %; Blood Gas Operator Identificat WLCI; Blood Gas Sample Site Radial, right; Blood Gas Sample Type Arterial; Carboxyhemoglobin 0.8 %THgb (0.4-20.1); Glucose Level-ABG 100.0 mg/dL (70-115); HCO3 ABG 26.5 mmol/L (22-26); Ionized Calcium Level - ABG 1.2 mmol/L (1.1-1.4); Methemoglobin 1.0 % (0.4-1.5); Oxygen Saturation ABG 95.3; PO2 ABG 76.9 mmHg (80.0-100.0); Potassium Level - ABG 4.3 mmol/L (3.5-5.0); Sodium Level - ABG 131.0 mmol/L (131-143)
[2025-01-29 13:20] LABS: Hematocrit 37.4 % (36-47); Hemoglobin 12.00 g/dL (11.27-16.99); Mean Corpuscular HGB Conc 32.1 g/dL (30-55); Mean Corpuscular Hemoglobin 31.4 pg (27-33); Mean Corpuscular Volume 97.9 fl (85-98); Nucleated Red Blood Cells % 0 %; Platelet Count 221 10^3/cmm (157-399); Red Blood Count 3.82 10^6/uL (3.85-5.65); White Blood Count 6.74 10^3/uL (3.29-11.43)
--- NOTE | 2025-01-29 13:27 | W.ED.SOB ---
HPI - SOB/Dyspnea General: Chief Complaint: Shortness of Breath/Dyspnea Stated Complaint: SOB / cough (sent by elena) Time Seen by Provider: 01/29/25 12:57 History of Present Illness: HPI Narrative: 79-year-old female presents emergency room complaining of shortness of breath. She initially gone to urgent care and then was redirected Dr. Gaona's office and she read there her oxygen sats were found to be in the upper 80s she was directed to the emergency room. She does not normally wear oxygen her oxygen sat improved with oxygen supplementation at 2 L she gets to 98%. She has had a mildly productive cough low-grade fever generalized flulike symptoms the last several days. She is also complaining of some abdominal discomfort. She denies dysuria urgency or frequency or diarrhea. Associated symptoms: Deny abdominal pain, chest pain or fever(s) Related Data Home Medications ?Medication ?Instructions ?Recorded ?Confirmed denosumab 60 mg/mL subcutaneous See Rx Instructions .Route .COMPLEX 04/07/20 01/29/25 syringe (Prolia) Previous Rx's ?Medication ?Instructions ?Recorded midodrine 5 mg tablet 5 mg PO TID PRN LOW BLOOD PRESSURE 11/14/23 #90 tabs potassium chloride 10 mEq 10 meq PO DAILY #30 tabs 07/01/24 tablet,extended release (Klor-Con) duloxetine 60 mg capsule,delayed 60 mg PO BEDTIME #90 caps 08/18/24 release atorvastatin 80 mg tablet 80 mg PO BEDTIME #90 tabs 12/01/24 levothyroxine 112 mcg tablet 112 mcg PO DAILY #30 tabs 12/03/24 clopidogrel 75 mg tablet 75 mg PO DAILY #90 tabs 12/16/24 hydrocodone 10 mg-acetaminophen 1 tab PO Q6H PRN Pain 30 days #120 01/05/25 325 mg tablet tabs gabapentin 100 mg capsule 200 mg (2 x 100 mg) PO TID #180 01/12/25 caps cefdinir 300 mg capsule 300 mg PO BID #14 caps 01/29/25 Allergies Allergy/AdvReac Type Severity Reaction Status Date / Time No Known Allergies Allergy Verified 01/29/25 12:46 Review of Systems Const: Denies: fever(s) or chills Card: Denies: chest pain Resp: Reports: dyspnea GI: Denies: abdominal pain : Denies: dysuria, urinary frequency or urinary urgency Musc: Denies: neck pain or back pain Skin/Breast: Denies: rash PFSH ED PFSH: Medical History Pneumonia TIA (transient ischemic attack) Orthostatic hypotension Osteoporosis DO NOT REMOVE, LINKED TO TX PLAN Lung nodule Needs follow-up CT chest yearly for 5 years. Lumbar radiculopathy Scoliosis Macrocytosis Abdominal pain Surgical History History of tibial fracture 2019 - fractures in tibial [facility] Family History Family/Other Alzheimer's dementia Social History Smoking and tobacco/nicotine status: never used tobacco/nicotine Alcohol intake: never Substance/Drug Use: never Marital status: Physical Exam Const: GENERAL APPEARANCE: cooperative ORIENTATION/CONSCIOUSNESS: Yes awake, Yes oriented to person, Yes oriented to place and Yes oriented to time HENMT: COMMON NORMALS: normocephalic, atraumatic and hearing grossly normal bilaterally HEAD & SCALP: normocephalic and atraumatic Resp: COMMON NORMALS: normal respiratory effort, No retractions, No use of accessory muscles and clear to auscultation bilaterally AUSCULTATION: clear to auscultation bilaterally Cardio: COMMON NORMALS: regular rate, regular rhythm and No murmurs present (Cardio) RATE: regular rate RHYTHM: regular rhythm GI: COMMON NORMALS: Soft to palpation and No hepatosplenomegaly present AUSCULTATION: Yes normoactive bowel sounds PALPATION: Yes Soft to palpation, No Tenderness to palpation present (GI), No Guarding due to palpation present (GI) and Yes No hepatosplenomegaly present Extremity: COMMON NORMALS: normal to inspection, capillary refill normal, no clubbing, cyanosis or edema, no calf tenderness and no pedal edema Neuro: SENSORIUM/ORIENTATION: Yes oriented to person, Yes oriented to place and Yes oriented to time Skin: COMMON NORMALS: no rashes or lesions noted GENERAL SKIN EXAM: no rashes or lesions noted Course Vital Signs: Vital signs: Vital Signs Temperature 97.9 F 01/29/25 12:40 Pulse Rate 65 01/29/25 18:38 Respiratory Rate 18 01/29/25 12:40 Blood Pressure 177/105 01/29/25 18:38 Pulse Oximetry 93 01/29/25 18:38 Oxygen Delivery Me thod Room Air 01/29/25 17:30 Oxygen Flow Rate 2 01/29/25 14:16 MDM - SOB/Dyspnea Medical Decision Making Medical decision making Social determinants: None I reviewed the patient's medical record. I reviewed the patient's current home meds. Alternate historians: Differential diagnosis: Pneumonia PE Lab Review: Laboratory test white count normal hemoglobin stable at 12.2. Platelets normal. ABG showed a PaO2 of 76.9 pH 7.39 pCO2 43.3. Sodium 133 anion gap with normal potassium normal liver functions unremarkable. UA shows cystitis Imaging: Chest x-ray unremarkable. CTA chest abdomen pelvis did not show significant abnormality no dissection no PE, patchy ground glass areas concerning for pneumonia Assessment of risk Level of risk: Moderate Hospitalization considerations: Pending results patient initially had some hypoxia may need hospitalization Reexamination: All symptoms completely resolved patient was titrated off oxygen satting normal anxious to go home. Assessment and plan: Initially patient required oxygen. Chest x-ray was negative. CTA of the chest done including follow through the abdomen and pelvis. No PE no pneumothorax there is signs of patchy ground glass infiltrates not seen on the chest x-ray. The remainder of the abdomen pelvis were negative. Urine did show signs of cystitis we will put her on cefdinir 300 mg twice a day have her follow-up with her primary care doctor she feels well and her sats are now normal return if she has any worsening or change in condition. Lab Data 01/29/25 13:07 01/29/25 13:07 Labs/Radiology: Radiology Impressions Chest X-Ray 01/29/25 13:12 Impression: Atherosclerosis and hyperinflation. Chest/Abdomen/Pelvis CTA 01/29/25 14:47 IMPRESSION: 1. No evidence of pulmonary embolism. 2. No CT evidence of dissection involving the thoracic or abdominal aorta. 3. Areas of mild patchy ground-glass airspace opacity and septal thickening is present within the left lower lobe. Findings more have the appearance of postinflammatory change and atelectatic change. There are a few areas of slight septal thickening and nodularity which could potentially correspond to changes of mild bronchopneumonia. Lungs are otherwise essentially clear. 4. No acute findings within the abdomen or pelvis. 5. Mild fatty liver. 6. Small hiatal hernia. 7. Small periumbilical hernia containing fat. 8. Advanced degenerative changes are present throughout the spine. 9. Other incidental and nonemergent findings are discussed above. Laboratory Results WBC 6.74 10^3/uL (3.29-11.43) 01/29/25 13:07 RBC 3.82 10^6/uL (3.85-5.65) L 01/29/25 13:07 Hgb 12.00 g/dL (11.27-16.99) 01/29/25 13:07 Hct 37.4 % (36-47) 01/29/25 13:07 MCV 97.9 fl (85-98) 01/29/25 13:07 MCH 31.4 pg (27-33) 01/29/25 13:07 MCHC 32.1 g/dL (30-55) 01/29/25 13:07 RDW 14.6 % (12.1-15.1) 01/29/25 13:07 Plt Count 221 10^3/cmm (157-399) 01/29/25 13:07 MPV 10.0 fL (7.4-10.4) 01/29/25 13:07 Neut % (Auto) 79.0 % 01/29/25 13:07 Lymph % (Auto) 8.8 % 01/29/25 13:07 [place] % (Auto) 7.7 % 01/29/25 13:07 Eos % (Auto) 0.4 % 01/29/25 13:07 Baso % (Auto) 0.4 % 01/29/25 13:07 Neut # (Auto) 5.32 10^3/uL (1.8-7.7) 01/29/25 13:07 Lymph # (Auto) 0.6 10^3/uL (0.8-4.8) L 01/29/25 13:07 [place] # (Auto) 0.5 10^3/uL (0.2-0.9) 01/29/25 13:07 Eos # (Auto) 0.0 10^3/uL (0.0-0.8) 01/29/25 13:07 Baso # (Auto) 0.0 10^3/uL (0.0-0.1) 01/29/25 13:07 Nucleated RBC % (auto) 0 % 01/29/25 13:07 Nucleated RBCs # 0.0 /100WBC 01/29/25 13:07 Specimen Type Arterial 01/29/25 13:03 Sample Site Radial, right 01/29/25 13:03 ABG pH 7.39 (7.35-7.45) 01/29/25 13:03 ABG pCO2 43.5 mmHg (35-45) 01/29/25 13:03 ABG pO2 76.9 mmHg (80.0-100.0) L 01/29/25 13:03 ABG HCO3 26.5 mmol/L (22-26) H 01/29/25 13:03 ABG O2 Saturation 95.3 01/29/25 13:03 ABG Base Excess 1.3 mmol/L (-2.0-2.0) 01/29/25 13:03 John Paul Test Pos 01/29/25 13:03 A-a O2 Gradient 2.1 mmHg (5-10) L 01/29/25 13:03 Hematocrit 37.3 % (37-47) 01/29/25 13:03 Hgb O2 Saturation 93.5 % (95-100) L 01/29/25 13:03 Carboxyhemoglobin 0.8 %THgb (0.4-20.1) 01/29/25 13:03 Methemoglobin 1.0 % (0.4-1.5) 01/29/25 13:03 Total Hemoglobin 12.2 g/dL (12-16) 01/29/25 13:03 Sodium 131.0 mmol/L (131-143) 01/29/25 13:03 Potassium 4.3 mmol/L (3.5-5.0) 01/29/25 13:03 Glucose 100.0 mg/dL (70-115) 01/29/25 13:03 Ionized Calcium 1.2 mmol/L (1.1-1.4) 01/29/25 13:03 O2 Delivery Device Nc 01/29/25 13:03 O2 Liters/Min 2.0 % 01/29/25 13:03 Geothermal Field Technician ID [facility] 01/29/25 13:03 Sodium 133 mmol/L (136-145) L 01/29/25 13:07 Potassium 4.4 mmol/L (3.5-5.1) 01/29/25 13:07 Chloride 94 mmol/L (98-107) L 01/29/25 13:07 Carbon Dioxide 26 mmol/L (22-29) 01/29/25 13:07 Anion Gap 17.4 (5-19) 01/29/25 13:07 BUN 10 mg/dL (8-23) 01/29/25 13:07 Creatinine 1.1 mg/dL (0.5-0.9) H 01/29/25 13:07 GFR Calculation Not Reportable 01/29/25 13:07 Glucose 99 mg/dL (65-115) 01/29/25 13:07 Calculated Osmolality 275 mOsm/kg (285-295) L 01/29/25 13:07 Calcium 9.2 mg/dL (8.5-10.5) 01/29/25 13:07 Total Bilirubin 0.4 mg/dL (0.15-1.2) 01/29/25 13:07 AST 20 U/L (0-32) 01/29/25 13:07 ALT 14 U/L (0-33) 01/29/25 13:07 Alkaline Phosphatase 95 U/L (35-105) 01/29/25 13:07 Total Protein 6.8 g/dL (6.6-8.7) 01/29/25 13:07 Albumin 3.9 g/dL (3.5-5.2) 01/29/25 13:07 Globulin 2.9 g/dL (1.3-4.6) 01/29/25 13:07 Urine Color Yellow (Yellow) 01/29/25 13:41 Urine Appearance Clear (CLEAR) 01/29/25 13:41 Urine pH 6.5 (5-7) 01/29/25 13:41 Ur Specific [place] 1.023 (1.005-1.030) 01/29/25 13:41 Urine Protein Trace (Negative) A 01/29/25 13:41 Urine Glucose (UA) Negative (Normal) 01/29/25 13:41 Urine Ketones Trace (Negative) 01/29/25 13:41 Urine Blood Negative (Negative) 01/29/25 13:41 Urine Nitrate Negative (Negative) 01/29/25 13:41 Urine Bilirubin Negative (Negative) 01/29/25 13:41 Urine Urobilinogen 1.0 mg/dL (Negative) 01/29/25 13:41 Ur Leukocyte Esterase 2+ (Negative) A 01/29/25 13:41 Urine RBC 0-2 /hpf (0-2) 01/29/25 13:41 Urine WBC 51-100 /hpf (0-5) H 01/29/25 13:41 Ur Squamous Epith Cells 0-5 /hpf (0-5) 01/29/25 13:41 Amorphous Sediment Not Reportable 01/29/25 13:41 Urine Bacteria None seen /hpf (NONE) 01/29/25 13:41 Hyaline Casts 17.77 /lpf 01/29/25 13:41 Coarse Granular Casts Rare /lpf 01/29/25 13:41 Influenza A (PCR) Negative (Negative) 01/29/25 13:32 Influenza Type B (PCR) Negative (Negative) 01/29/25 13:32 RSV (PCR) Negative (Negative) 01/29/25 13:32 SARS-CoV-2 (PCR) Negative (Negative) 01/29/25 13:32 All radiology interpretation(s) finalized by discharge Discharge Plan Discharge Patient Disposition: Home Clinical Impression: Cystitis, Pneumonia Condition: Stable Prescriptions: New cefdinir 300 mg capsule 300 mg PO BID Qty: 14 0RF No Action gabapentin 100 mg capsule 200 mg PO TID Qty: 180 3RF atorvastatin 80 mg tablet 80 mg PO BEDTIME Qty: 90 3RF midodrine 5 mg tablet 5 mg PO TID PRN (Reason: LOW BLOOD PRESSURE) Qty: 90 6RF potassium chloride [Klor-Con 10] 10 mEq tablet extended release 10 meq PO DAILY Qty: 30 0RF duloxetine 60 mg capsule,delayed release(DR/EC) 60 mg PO BEDTIME Qty: 90 3RF levothyroxine 112 mcg tablet 112 mcg PO DAILY Qty: 30 3RF clopidogrel 75 mg tablet 75 mg PO DAILY Qty: 90 3RF hydrocodone-acetaminophen 10-325 mg tablet 1 tab PO Q6H PRN (Reason: Pain) 30 Days Qty: 120 0RF Prolia 60 mg/mL Syringe See Rx Instructions .ROUTE .COMPLEX Rx Instructions: 60 mg subcutaneously EVERY SIX MONTHS Discharge Orders: Discharge ED (Routine); Ordered 01/29/25 Ordered By: Yovanny Abrams Referrals: Andrea Gaona MD [Primary Care Provider, Family Practice] Discharge Diet: Usual diet Discharge Activity: Increase activity as tolerated Patient Instructions: Urinary Tract Infection in Women (ED), Pneumonia (ED), Opioid Safety, Pain Management, Patient Portal & Su Instructions Activity Restrictions/Additional Instructions: Thank you for choosing [facility] for your healthcare needs today. It is very important that you follow up as instructed or that you return to the Emergency Department should you have concerns or if your condition changes or worsens in any way. Emergency department visits are focused on emergent conditions, in some cases you may require further evaluation on an outpatient basis. You were seen in the emergency room with complaint of shortness of breath. Workup showed you do not have a pulmonary embolism but do have a mild pneumonia. You also were noted to have a bladder infection. Your white count was not significantly elevated. Will discharge you home on oral antibiotics which should be can begin tomorrow. You are given initial dose of IV antibiotics in the emergency room. Have any worsening or changes symptoms return to the emergency room or follow-up with your primary care doctor (Please note that included in your discharge packet is information concerning opioid safety and pain management. This information is given to all patients were discharged from the ER regardless of their discharge diagnosis or the medicines they usually take or are prescribed.) Print Language: Turkmen Coding Level of Care Code ED Car Racer for Joel Harden
[2025-01-29 13:42] LABS: Alanine Aminotransferase 14 U/L (0-33); Albumin Level 3.9 g/dL (3.5-5.2); Alkaline Phosphatase 95 U/L (35-105); Anion Gap 17.4 (5-19); Aspartate Amino Transferase 20 U/L (0-32); Blood Urea Nitrogen 10 mg/dL (8-23); Calcium 9.2 mg/dL (8.5-10.5); Carbon Dioxide 26 mmol/L (22-29); Chloride 94 mmol/L (98-107); Globulin 2.9 g/dL (1.3-4.6); Glucose 99 mg/dL (65-115); Osmolality Calculated 275 mOsm/kg (285-295); Potassium 4.4 mmol/L (3.5-5.1); Sodium 133 mmol/L (136-145); Total Protein 6.8 g/dL (6.6-8.7)
[2025-01-29 14:01] LABS: Glucose Urine UA Negative (Normal); Nitrate Urine Negative (Negative); Specific Gravity, Urine 1.023 (1.005-1.030)
[2025-01-29 14:03] LABS: Add Urine Microscopic? YES; Universal Test for UA Present (0)
[2025-01-29 14:16] LABS: Respiratory Syncytial Virus Ce NEGATIVE (Negative); SARS-CoV-2 PCR NEGATIVE (Negative)
[2025-01-29 14:24] LABS: UA Slide Review UA Slide Review Perf
--- NOTE | 2025-01-29 14:47 | CTR_ITS ---
PROCEDURE INFORMATION: Exam: CTA Chest With Contrast CTA Abdomen and Pelvis With Contrast Exam date and time: 01/29/2025 3:39 PM Age: 79 years old Clinical indication: Pain; Other: Hypoxia, cystitis TECHNIQUE: Imaging protocol: Computed tomographic angiography of the chest with contrast. Exam focused on the arteries. Computed tomographic angiography of the abdomen and pelvis with contrast. Exam focused on the arteries. 3D rendering (Not supervised by radiologist): MIP and/or 3D reconstructed images were created by the technologist. Radiation optimization: All CT scans at this facility use at least one of these dose optimization techniques: automated exposure control; mA and/or kV adjustment per patient size (includes targeted exams where dose is matched to clinical indication); or iterative reconstruction. Contrast material: [id number]; Contrast volume: 100 ml; Contrast route: INTRAVENOUS (IV); COMPARISON: 1. CT abdomen pelvis w con* [id number] 11/12/2023 9:[address] kidney stone [id number] 12/30/2024 1:08 PM RADIATION DOSE METRICS: Total DLP (mGy-cm): 592.8 FINDINGS: VASCULATURE: Pulmonary arteries: Main pulmonary artery is normal in caliber. No evidence of pulmonary embolism. Aorta: Precontrast images of the aorta demonstrate no areas of increased density to suggest changes of mural hematoma. Post-contrast images demonstrate no evidence of dissection involving the thoracic aorta. Mild fusiform dilatation of the ascending thoracic aorta measuring up to 3.3 x 3.1 cm in greatest diameter. Atherosclerotic plaque at the aortic arch. Origins of the great vessels are patent. Scattered atherosclerotic plaque along the length of the descending thoracic aorta. Infrarenal abdominal aorta is patent and normal in caliber. No evidence for dissection. Heavy atherosclerotic plaque along the length of the infrarenal abdominal aorta. Celiac and mesenteric arteries: Celiac artery is patent. No significant stenosis. Superior mesenteric artery is patent. [id number] stenosis of the origin. Renal arteries: Renal arteries are patent. Right iliac arteries: No occlusion or significant stenosis. Left iliac arteries: No occlusion or significant stenosis. Thyroid: Thyroid gland appears atrophic. CHEST: Lungs: Patchy ground-glass airspace opacity and atelectatic changes present within the posterior aspect of the left lower lobe. There is associated mild bronchiectasis and mild peribronchial thickening extending into the left lower lobe. There are a few associated areas of partial mucous impaction. Findings more have the appearance of atelectatic and postinflammatory change. There are a few scattered areas of septal thickening and nodularity which can be seen in the setting of bronchopneumonia. Mild fibrosis and scarring at the right and left lung apex. Mild central bronchiectasis is present bilaterally. Central airways are clear. No suspicious pulmonary nodule or mass. Pleural spaces: No significant pleural effusion. No pneumothorax. Heart: Heart size is within normal limits. No pericardial effusion. Scattered dense coronary artery calcifications are present. Mediastinal space: No mediastinal mass or fluid collection. No enlarged or suspicious mediastinal lymph nodes. No hilar mass Diaphragm: Question small hiatal hernia. ABDOMEN AND PELVIS: Liver: Mild decreased density throughout the liver compatible with mild fatty infiltration. No abnormal arterial phase enhancement within the liver. No suspicious mass or lesion within the liver. Gallbladder and biliary ducts: The gallbladder is unremarkable. No biliary ductal dilatation. Common bile duct is normal in caliber. Pancreas: The pancreas is unremarkable. Spleen: Early timing of the contrast bolus limits evaluation of the spleen. No suspicious mass or lesion within the spleen. Adrenal glands: The adrenal glands are unremarkable. Kidneys and ureters: Right kidney is unremarkable as visualized. No mass or stone seen. No hydronephrosis. Left kidney is unremarkable as visualized. No mass or stone seen. No hydronephrosis. The ureters appear unremarkable. Stomach and bowel: The stomach appears unremarkable. Small bowel loops are normal in caliber no evidence of a small bowel obstruction. There are a few scattered diverticula along the colon. No evidence of acute colitis or acute diverticulitis. Appendix: No evidence of acute appendicitis. Intraperitoneal space: No significant peritoneal free fluid. No free peritoneal air. Urinary bladder: The bladder appears unremarkable. Reproductive: Uterus is unremarkable. No suspicious adnexal lesion seen. Lymph nodes: No suspicious axillary lymphadenopathy or mass. No supraclavicular lymphadenopathy. Most embolic There are no enlarged or suspicious intra-abdominal, pelvic or retroperitoneal lymph nodes. Bones/joints: Bones appear demineralized. No acute osseous abnormality. [id number] levoscoliosis centered at the thoracolumbar junction. Multilevel degenerative changes are present within the thoracic spine. Severe dextroscoliosis centered at the L3 level. Multilevel degenerative changes are present throughout the lumbar spine. No acute fracture or suspicious bone lesion. Areas of slight sclerosis along the left aspect of the sacrum compatible with subacute to old insufficiency fracture. Soft tissues: Small periumbilical hernia containing fat. CT/CT ang [place] abdpel [id number] IMPRESSION: 1. No evidence of pulmonary embolism. 2. No CT evidence of dissection involving the thoracic or abdominal aorta. 3. Areas of mild patchy ground-glass airspace opacity and septal thickening is present within the left lower lobe. Findings more have the appearance of postinflammatory change and atelectatic change. There are a few areas of slight septal thickening and nodularity which could potentially correspond to changes of mild bronchopneumonia. Lungs are otherwise essentially clear. 4. No acute findings within the abdomen or pelvis. 5. Mild fatty liver. 6. Small hiatal hernia. 7. Small periumbilical hernia containing fat. 8. Advanced degenerative changes are present throughout the spine. 9. Other incidental and nonemergent findings are discussed above.
[2025-01-29] MEDS: iohexol 350 mg/mL 500 mL Btl (per mL) IV (15:42)
[2025-01-29] MEDS: cefTRIAXone 1,000 mg SDV 1000 MG IVP (16:20)
--- NOTE | 2025-01-29 16:49 | PC.NURSE ---
Pt in room states that pt usually has low blood pressure, per pt has white coat syndrome and has high blood pressure readings in doctor office and hospitals.
== END 2025-01-29 18:39 | disposition home or self-care (01) ==
PROVIDERS: Emergency Provider Family Medicine; PCP Family Medicine
DX: N30.90 Cystitis, unspecified without hematuria (principal); J18.9 Pneumonia, unspecified organism; Z11.52 Encounter for screening for COVID-19; Z79.02 Long term (current) use of antithrombotics/antiplatelets; Z86.73 Personal history of transient ischemic attack (TIA), and cerebral infarction without residual deficits
CPT/HCPCS: 36415; 36600; 71045; 71275; 74174; 80051; 80053; 81001; 82330; 82805; 85025; 87086; 87637; 93005; 96374; 99285; J0696

== ENCOUNTER → 2025-02-09 12:35 | Outpatient (BNVA) | payer MEDICARE, OTHER, SELFPAY | PROVIDERS: PCP Family Medicine; Visit Provider Family Medicine | DX: N39.0 Urinary tract infection, site not specified (principal) | CPT/HCPCS: 81000 ==